=== PATIENT | male | born 1955 | race Caucasian/White ===

== ENCOUNTER 2019-03-15 11:29 | Emergency (ER) | payer OTHER ==
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
[2019-03-15 13:23] LABS: ABS Eosinophils 0.1 10^3/ul (0-0.6); ABS Lymphocytes 1.7 10^3/ul (1.0-4.8); ABS Monocytes 0.6 10^3/ul (0-0.8); ABS Neutrophils 3.4 10^3/ul (1.5-7.7); Eosinophil % 2.1 %; Hematocrit 43 % (42-52); Hemoglobin 14.7 g/dL (14.0-18.0); Lymphocyte % 29.3 %; Mean Corpuscular HGB Conc 34 g/dL (31-36); Mean Corpuscular Hemoglobin 32 pg (27-31); Mean Corpuscular Volume 93 fL (80-94); Mean Platelet Volume 7.7 fL (7.4-10.4); Platelet Count 324 10^3/uL (150-450); Red Blood Count 4.61 10^6 /uL (4.18-5.48); Red Cell Distribution Width 17 % (10-15); White Blood Count 5.9 10^3/uL (3.5-10.8)
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
[2019-03-15 13:39] LABS: Albumin/Globulin Ratio 1.5 (1-3); BUN/Creatinine Ratio 8.3 (8-20); Calcium 9.2 mg/dL (8.6-10.3); EGFR Non-African American 92.6 (>60); Globulin 2.7 g/dL (2-4); Potassium 3.8 mmol/L (3.5-5.0); Total Bilirubin 0.6 mg/dL (0.2-1.0); Total Protein 6.7 g/dL (6.4-8.9)
[2019-03-15 14:16] LABS: Urine Appearance Clear; Urine Bilirubin Negative (Negative); Urine Blood Negative (Negative); Urine Color Yellow; Urine Glucose Negative (Negative); Urine Ketones Negative (Negative); Urine Nitrite Negative (Negative); Urine Protein Negative (Negative); Urine Specific Gravity 1.006 (1.010-1.030); Urine Urobilinogen Negative (Negative)
[2019-03-15] MEDS ORDERED: Nicotine PATCH 21 MG/24 HR* PATCH TRANSDERM ONE (14:51)
[2019-03-15] MEDS ORDERED: Naproxen TAB* 250 MG PO ONE (15:35)
[2019-03-15] MEDS ORDERED: Ciprofloxacin TAB* 500 MG PO ONE (15:35)
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
[2019-03-15 20:46] VITALS: BP 130/84
[2019-03-15] MEDS ORDERED: oxyCODONE TAB* 5 MG TAB PO ONE (20:50)
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
== END 2019-03-15 21:09 | disposition home or self-care (01) ==
LOC: ED 11:29
DX: S12.600A Unspecified displaced fracture of seventh cervical vertebra, initial encounter for closed fracture (principal); N50.819 Testicular pain, unspecified; V49.40XA Driver injured in collision with unspecified motor vehicles in traffic accident, initial encounter; Y92.410 Unspecified street and highway as the place of occurrence of the external cause; I10 Essential (primary) hypertension; F17.210 Nicotine dependence, cigarettes, uncomplicated; Z91.041 Radiographic dye allergy status; Z79.899 Other long term (current) drug therapy; M51.36 Other intervertebral disc degeneration, lumbar region
CPT/HCPCS: 36415; 70450; 72020; 72070; 72125; 72131; 72141; 72148; 76870; 80053; 81003; 85025; 99283; A9270-GY

== ENCOUNTER 2019-03-17 16:20 | Emergency (ER) | payer SELFPAY ==
[2019-03-17 18:19] LABS: ABS Eosinophils 0.2 10^3/ul (0-0.6); ABS Lymphocytes 1.8 10^3/ul (1.0-4.8); ABS Monocytes 0.9 10^3/ul (0-0.8); ABS Neutrophils 4.7 10^3/ul (1.5-7.7); Eosinophil % 2.1 %; Hematocrit 43 % (42-52); Hemoglobin 14.8 g/dL (14.0-18.0); Lymphocyte % 23.4 %; Mean Corpuscular HGB Conc 34 g/dL (31-36); Mean Corpuscular Hemoglobin 32 pg (27-31); Mean Corpuscular Volume 93 fL (80-94); Mean Platelet Volume 7.7 fL (7.4-10.4); Nucleated Red Blood Cells % 0.1; Platelet Count 334 10^3/uL (150-450); Red Blood Count 4.62 10^6 /uL (4.18-5.48); Red Cell Distribution Width 17 % (10-15); White Blood Count 7.5 10^3/uL (3.5-10.8)
[2019-03-17 18:24] LABS: INR 0.97 (0.82-1.09)
--- NOTE | 2019-03-17 18:28 | ED ---
GI/ HPI - HPI Summary HPI Summary: 63 year old male presents with continuation of testicular pain for the past couple weeks. He states he was seen here 2 days ago and had an ultrasound done was diagnosed with orchitis. He states it started course of Cipro. He states that his been having increasing pain today that radiates into his right lower quadrant. He denies any nausea vomiting. No fevers. No dysuria. He states when he is straining had increased pain. She admits to constipation but no diarrhea. Does have history of multiple back surgeries. Does have a C7 fracture that has collar on and is being followed by neurosurgery. Denies any new trauma. States he is feeling better when he is sitting up but hurts more when he lays down. - History of Current Complaint Chief Complaint: EDUrogenitalProblems Time Seen by Provider: 03/17/19 17:55 Stated Complaint: RIGHT TESTICLE PAIN PER PT Pain Intensity: 8 - Allergy/Home Medications Allergies/Adverse Reactions: Allergies Allergy/AdvReac Type Severity Reaction Status Date / Time Iodinated Contrast Media AdvReac Headache Verified 03/17/19 16:29 PMH/Surg Hx/FS Hx/Imm Hx Endocrine/Hematology History: Denies: Hx Diabetes Cardiovascular History: Reports: Hx Hypertension Denies: Hx Pacemaker/ICD History: Denies: Hx Renal Disease Musculoskeletal History: Reports: Hx Arthritis Sensory History: Reports: Hx Contacts or Glasses - GLASSES Denies: Hx Cataracts, Hx Glaucoma, Hx Hearing Aid Opthamlomology History: Reports: Hx Contacts or Glasses - GLASSES Denies: Hx Cataracts, Hx Glaucoma Neurological History: Reports: Other Neuro Impairments/Disorders - L3/4, 4/5 SPINAL STENOSIS Psychiatric History: Denies: Hx Panic Disorder - Surgical History Surgery Procedure, Year, and Place: HERNIA X2. LSP SURGERY 2000&2013-12/21/16. RT WRIST SURGERY X3 Hx Anesthesia Reactions: No Infectious Disease History: No Infectious Disease History: Denies: Traveled Outside the US in Last 30 Days - Family History Known Family History: Positive: Non-Contributory - Social History Alcohol Use: Daily Alcohol Amount: 6-7 BEERS/DAY Substance Use Type: Reports: None Smoking Status (MU): Heavy Every Day Tobacco Smoker Type: Cigarettes Amount Used/How Often: 1 PPD FOR 45 YRS Length of Time of Smoking/Using Tobacco: 45 YRS Have You Smoked in the Last Year: Yes Review of Systems Negative: Fever Negative: Chest Pain Negative: Shortness Of Breath Positive: Abdominal Pain Positive: other - right testicular pain Positive: Myalgia - back pain All Other Systems Reviewed And Are Negative: Yes Physical Exam Triage Information Reviewed: Yes Vital Signs On Initial Exam: Initial Vitals Temp Pulse Resp BP Pulse Ox 97.9 F 76 16 153/88 97 03/17/19 16:25 03/17/19 16:25 03/17/19 16:25 03/17/19 16:25 03/17/19 16:25 Vital Signs Reviewed: Yes Appearance: Positive: Well-Appearing Skin: Positive: Warm, Dry Head/Face: Positive: Normal Head/Face Inspection Eyes: Positive: Normal, Conjunctiva Clear ENT: Positive: Pharynx normal Respiratory/Lung Sounds: Positive: Clear to Auscultation, Breath Sounds Present Cardiovascular: Positive: Normal, RRR Abdomen Description: Positive: Soft, Other: - tenderness in RLQ Bowel Sounds: Positive: Present Male Genital Exam: Positive: Normal Genitalia, Normal Prostate, No Hernia. Negative: Testicular Tenderness (R), Testicular Tenderness (L) Musculoskeletal: Positive: Limited @ - back, Other - tenderness lower back, neg sLR Neurological: Positive: Normal Psychiatric: Positive: Normal Diagnostics - Vital Signs Vital Signs Temp Pulse Resp BP Pulse Ox 03/17/19 16:25 97.9 F 76 16 153/88 97 - Laboratory Lab Results: Lab Results 03/17/19 03/17/19 Range/Units 18:10 18:10 WBC 7.5 (3.5-10.8) 10^3/uL RBC 4.62 (4.18-5.48) 10^6 /uL Hgb 14.8 (14.0-18.0) g/dL Hct 43 (42-52) % MCV 93 (80-94) fL MCH 32 H (27-31) pg MCHC 34 (31-36) g/dL RDW 17 H (10-15) % Plt Count 334 (150-450) 10^3/uL MPV 7.7 (7.4-10.4) fL Neut % (Auto) 62.8 % Lymph % (Auto) 23.4 % [place] % (Auto) 11.5 % Eos % (Auto) 2.1 % Baso % (Auto) 0.2 % Absolute Neuts (auto) 4.7 (1.5-7.7) 10^3/ul Absolute Lymphs (auto) 1.8 (1.0-4.8) 10^3/ul Absolute Monos (auto) 0.9 H (0-0.8) 10^3/ul Absolute Eos (auto) 0.2 (0-0.6) 10^3/ul Absolute Basos (auto) 0.0 (0-0.2) 10^3/ul Absolute Nucleated RBC 0.0 10^3/ul Nucleated RBC % 0.1 INR (Anticoag Therapy) 0.97 (0.82-1.09) Result Diagrams: 03/17/19 18:10 03/17/19 18:10 Lab Statement: Any lab studies that have been ordered have been reviewed, and results considered in the medical decision making process. - CT abd CT Interpretation Completed By: Radiologist Summary of CT Findings: IMPRESSION: 1. Status post posterior fusion from L3-S1 and mild dextroscoliosis. Mild foraminal narrowing at L5-S1. No acute fractures. Streak artifacts limit the study. 2. No acute process seen in the abdomen or pelvis. 3. Bilateral thickening and mild prostatic enlargement. - Ultrasound No standard instances Ultrasound Interpretation Completed By: Radiologist Summary of Ultrasound Findings: IMPRESSION: Testicular ultrasound is within normal limits. Compared to the ultrasound done 2 days ago, both testes now seen to have normal and symmetric flow. No intratesticular abnormalities. Re-Evaluation - Re-Evaluation First Eval Re-Evaluation Time: 19:00 Comment: discussed getting CT with RLQ pain GIGU Course/Dx - Course Course Of Treatment: 63 year old male presents with continuation of testicular pain for the past couple weeks. He states he was seen here 2 days ago and had an ultrasound done was diagnosed with orchitis. He states it started course of Cipro. He states that his been having increasing pain today that radiates into his right lower quadrant. He denies any nausea vomiting. No fevers. No dysuria. He states when he is straining had increased pain. She admits to constipation but no diarrhea. Does have history of multiple back surgeries. Does have a C7 fracture that has collar on and is being followed by neurosurgery. Denies any new trauma. States he is feeling better when he is sitting up but hurts more when he lays down. On exam tenderness over quadrant. Tenderness in RLQ. Nontender testicular. Ultrasound shows no abnormality. wbc normal. crp normal. CT shows no abnormality. discussed symptoms likely coming from back. told follow up with urology about testicular pain. patient has follow up with neurosurgery for tuesday. told continue normal pain meds. patient understand and agrees with plan. - Diagnoses Differential Diagnoses - Male: Appendicitis, Orchitis, Urinary Tract Infection Provider Diagnoses: Testicular pain, Back pain, Abdominal pain Discharge ED - Sign-Out/Discharge Documenting (check all that apply): Patient Departure Patient Received Moderate/Deep Sedation with Procedure: No - Discharge Plan Condition: Good Disposition: HOME Patient Education Materials: Back Pain (ED) Referrals: She Blackmon [Primary Care Provider] - Sterling Arias MD [Medical Doctor] - Additional Instructions: follow up with urology continue antibiotic Follow up with neurosurgery as scheduled ice, heat area Return to ED if develop any new or worsening symptoms - Billing Disposition and Condition Condition: GOOD Disposition: Home
[2019-03-17 18:36] LABS: Albumin 4.2 g/dL (3.2-5.2); Albumin/Globulin Ratio 1.4 (1-3); BUN/Creatinine Ratio 9.8 (8-20); C Reactive Protein 4.94 mg/L (<8.01); Calcium 9.2 mg/dL (8.6-10.3); EGFR African American 89.5 (>60); Globulin 2.9 g/dL (2-4); Total Bilirubin 0.4 mg/dL (0.2-1.0); Total Protein 7.1 g/dL (6.4-8.9)
[2019-03-17 18:52] LABS: Urine Appearance Clear; Urine Bilirubin Negative (Negative); Urine Blood Negative (Negative); Urine Color Straw; Urine Glucose Negative (Negative); Urine Ketones Negative (Negative); Urine Nitrite Negative (Negative); Urine Protein Negative (Negative); Urine Specific Gravity 1.003 (1.010-1.030); Urine Urobilinogen Negative (Negative)
[2019-03-17 19:23] LABS: Potassium 4.2 mmol/L (3.5-5.0)
[2019-03-17 20:43] VITALS: BP 128/76
== END 2019-03-17 20:42 | disposition home or self-care (01) ==
LOC: ED 16:20
DX: N50.819 Testicular pain, unspecified (principal); M54.9 Dorsalgia, unspecified; R10.9 Unspecified abdominal pain; I10 Essential (primary) hypertension; F17.210 Nicotine dependence, cigarettes, uncomplicated; Z91.041 Radiographic dye allergy status; Z79.899 Other long term (current) drug therapy
CPT/HCPCS: 36415; 74176; 76870; 80053; 81003; 85025; 85610; 86140; 99283

== ENCOUNTER 2019-08-27 07:11 | Emergency (ER) | payer OTHER ==
--- OUTSIDE RECORDS SUMMARY | 2019-08-27 07:26 | XMS REPORT | Summary of Care ---
:1955 Author Organization [facility] Address [address] [place] [address] Care Team Providers Name Role Phone She BlackmonMAX Primary Care Provider Reason for Visit Reason Comments Sinus Problem Encounter Details Date Type Department Care Team Description 08/24/2019 Office Visit [facility] Nereida Blackmon (Primary Dx); [address] [place] Obstructive chronic bronchitis with exacerbation (HCC); [place] [id number] [address] Gout, unspecified cause, unspecified chronicity, unspecified site; [phone] Gout, unspecified; [place] [address] Acute bacterial sinusitis [phone] Allergies Active Allergy Reactions Severity Noted Date Comments Dye Intravenous Radiographic Imaging FERMENTER OPERATOR Reaction 12/27/2017 Contrast Prednisone Swelling 08/05/2016 documented as of this encounter (statuses as of 08/24/2019) Medications Medication Sig Dispensed Refills Start End Date Status Date tiotropium (SPIRIVA Take 1 INHL by 90 Cap 1 Active HANDIHALER) 18 MCG inhalation 9 Inhalation DAILY. CapIndications: Obstructive chronic bronchitis with exacerbation (HCC) budesonide-formotero Take 2 INHL by 1 Each 3 Active l fumarate inhalation 9 (SYMBICORT) 160-4.5 TWICE DAILY. MCG/ACT Inhalation AerosolIndications: Chronic obstructive pulmonary disease, unspecified COPD type (HCC) albuterol HFA Take 2 Puffs 18 g 5 Active (VENTOLIN HFA) 108 by inhalation 0 (90 Base) MCG/ACT EVERY FOUR Inhalation Aero Soln HOURS NEEDED (SOB). amLodipine (NORVASC) Take 1 Tab by 30 Tab 5 Active 10 MG Oral mouth DAILY. 0 TabIndications: Obstructive chronic bronchitis with exacerbation (HCC) atenolol (TENORMIN) Take 1 Tab by 30 Tab 5 Active 50 MG Oral mouth DAILY. 0 TabIndications: Obstructive chronic bronchitis with exacerbation (HCC) lisinopril Take 1 Tab by 30 Tab 5 Active (PRINIVIL, ZESTRIL) mouth DAILY. 0 40 MG Oral Tab Omeprazole delayed Take 1 Cap by 30 Cap 5 Active rel cap 20 MG Oral mouth DAILY. 0 CAPSULE DELAYED RELEASEIndications: Obstructive chronic bronchitis with exacerbation (HCC) guaiFENesin-codeine Take 10 mL by 180 mL 0 Active (ROBITUSSIN AC) mouth EVERY 0 100-10 MG/5ML Oral FOUR HOURS SolutionIndications: NEEDED Cough (cough). Max Daily Amount: 60 mL. fluticasone [place] 2 Sprays 1 Bottle 0 Active (FLONASE) 50 MCG/ACT in nose DAILY. 0 Nasal SuspensionIndication s: Cough, Acute bacterial sinusitis indomethacin Take 1 Cap by 60 Cap 0 Active (INDOCIN) 50 MG Oral mouth THREE 0 CapIndications: TIMES DAILY. Gout, unspecified PRN pain cause, unspecified chronicity, unspecified site colchicine Take 1 Tab by 3 Tab 1 Active (COLSALIDE) 0.6 MG mouth DAILY. 0 Oral TabIndications: Take 2 tablets Gout, unspecified now then 1 tablet 1 hour later. budesonide respules 2 mL by 960 mL 0 Active (PULMICORT RESPULES) Inhalation-SVN 0 0.5 MG/2ML route TWICE Inhalation DAILY. SuspensionIndication s: Cough doxycycline Take 1 Tab by 20 Tab 0 09/03/19 Active (VIBRAMYCIN) 100 MG mouth TWICE 0 20 Oral TabIndications: DAILY for 10 Acute bacterial days. sinusitis indomethacin Take 1 Cap by 60 Cap 0 08/24/19 Discontinued (No (INDOCIN) 50 MG Oral mouth THREE 8 20 longer CapIndications: TIMES DAILY. clinically Gout, unspecified PRN pain indicated) cause, unspecified chronicity, unspecified site cyclobenzaprine Take 1 Tab by 30 Tab 0 08/24/19 Discontinued ( No (FLEXERIL) 10 MG mouth THREE 9 20 longer Oral TabIndications: TIMES DAILY clinically Muscle spasm NEEDED (neck indicated) pain). lisinopril Take 1 Tab by 30 Tab 5 08/24/19 Discontinued (PRINIVIL, ZESTRIL) mouth DAILY. 9 20 (Reorder) 40 MG Oral Tab Omeprazole delayed Take 20 mg by 30 Cap 5 08/24/19 Discontinued rel cap 20 MG Oral mouth DAILY. 9 20 (Reorder) CAPSULE DELAYED RELEASEIndications: Obstructive chronic bronchitis with exacerbation (HCC) amLodipine (NORVASC) Take 1 Tab by 30 Tab 5 08/24/19 Discontinued 10 MG Oral mouth DAILY. 9 20 (Reorder) TabIndications: Obstructive chronic bronchitis with exacerbation (HCC) atenolol (TENORMIN) Take 1 Tab by 30 Tab 5 08/24/19 Discontinued 50 MG Oral mouth DAILY. 9 20 (Reorder) TabIndications: Obstructive chronic bronchitis with exacerbation (HCC) albuterol HFA Take 2 Puffs 18 g 5 08/24/19 Discontinued (VENTOLIN HFA) 108 by inhalation 9 20 (Reorder) (90 Base) MCG/ACT EVERY FOUR Inhalation Aero Soln HOURS NEEDED (SOB). budesonide-formotero Take 2 INHL by 1 Each 3 08/24/19 Discontinued l fumarate inhalation 9 20 (Duplicate (SYMBICORT) 160-4.5 TWICE DAILY. Order) MCG/ACT Inhalation Aerosol cephalexin (KEFLEX) Take 1 Cap by 30 Cap 0 08/24/19 Discontinued (No 500 MG Oral Cap mouth THREE 9 20 longer TIMES DAILY. clinically indicated) documented as of this encounter (statuses as of 08/24/2019) Active Problems Problem Noted Date Hyponatremia 11/15/2017 [...] as of this encounter (statuses as of 08/24/2019) Resolved Problems Problem Noted Date Resolved Date Left leg pain 07/05/2016 03/24/2017 Left hip pain 07/05/2016 03/24/2017 Cold sensation of skin 07/05/2016 01/11/2019 Tingling sensation 07/05/2016 01/11/2019 documented as of this encounter (statuses as of 08/24/2019) Immunizations Name Administration Dates Next Due H1N1 Injectable Adult 06/30/2009 Influenza (IM) Preservative Free 04/17/2019, 08/17/2018, 04/02/2013, 07/18/2012, 07/16/2010, 06/30/2009 Influenza (IM) [...] Assigned at Date Recorded Not on file documented as of this encounter Last Filed Vital Signs Vital Sign Reading Time Taken Comments Blood Pressure 136/86 08/24/2019 3:04 PM EST Pulse 84 08/24/2019 3:04 PM EST Temperature 37.2 08/24/2019 3:04 PM EST C (98.9 F) Respiratory Rate 22 08/24/2019 3:04 PM EST Oxygen Saturation 94% 08/24/2019 3:04 PM EST Inhaled Oxygen Concentration - - Weight 81.4 kg (179 lb 8 oz) 08/24/2019 3:04 PM EST Height - - Body Mass Index 26.9 06/25/2019 1:27 PM EST documented in this encounter Patient Instructions Patient InstructionsShe Blackmon FNP-BC - 08/24/2019 3:00 PM ESTUse Pulmicort tin with albuterol MDI in nebulizer until you have follow up appointment -- Follow up in 10-14 days regarding breathing Use frandy\\nase during this time as well documented in this encounter Progress Notes She Blackmon FNP-BC - 08/24/2019 3:00 PM EST Verito Cam[place] [id number] 1955 Date of encounter: 08/24/2019 Chief Complaint Patient presents with ? Sinus Problem HPI: Verito Camarillo presents today in the walk in with symptoms as listed in the chief complaint. Presents today with his and granddaughter after a few weeks of upper respiratory symptoms stating that his head is plugged and his right ear pops all the time. He has sinus pressure in his face with a sore throat. He states his throat is dry but he has a very productive cough for lots of yellowphlegm, no blood seen. He endorses shortness of breath and wheezing and has been using his 's albuterol in the nebulizer in addition to his inhaler with good relief. He is not taking his Symbicort as prescribed. He is also taking Tylenol Sinus and a Robitussin product. He states he has Flonasein the past for sinus but not recently. He also reports a flare of gout 3 to 4 days ago in his left elbow that he is taking Indocin for but has noted no benefit. He is taking Indocin 1 time each day. PAST MEDICAL HISTORY: Past Medical History: Diagnosis Date ? COPD ? GERD (gastroesophageal reflux disease) ? Gout ? History of spinal cord injury ? HTN (hypertension), benign ? Hypertension ? Loss of sensation ? Movement disorder ? Unspecified essential hypertension FAMILY HISTORY: Family History Problem Relation Age of Onset ? Heart Father MA at 67 y/o ? Stroke No family history ? Parkinson's No family history ? Seizures No family history ? Neurofibromatosis No family history ? Multiple Sclerosis No family history ? Muscular Dystrophy No family history ? Mental Retardation No family history ? Developmental Delay No family history ? Dementia No family history ? Ataxia No family history SOCIAL HISTORY: Social History Socioeconomic History ? Marital status: Spouse name: Not on file ? Number of children: Not on file ? Years of education: Not on file ? Highest education level: Not on file Occupational History ? Not on file Social Needs ? Financial resource strain: Not on file ? Food insecurity Worry: Not on file Inability: Not on file ? Transportation needs Medical: Not on file Non-medical: Not on file Tobacco Use ? Smoking status: Former Smoker Packs/day: 1.00 Years: 36.00 Pack years: 36.00 Types: Cigarettes Last attempt to quit: 04/27/2017 Years since quittin.3 ? Smokeless tobacco: Never Used Substance and Sexual Activity ? Alcohol use: Yes Alcohol/week: 42.0 standard drinks Types: 42 Cans of beer per week Comment: 6-8 beers qd, coffee 1 per day, soda 1 per day ? Drug use: No ? Sexual activity: Yes Partners: Female Lifestyle ? Physical activity Days per week: Not on file Minutes per session: Not on file ? Stress: Not on file Relationships ? Social connections Talks on phone: Not on file Gets together: Not on file Attends gnosticist service: Not on file Active member of club or organization: Not on file Attends meetings of clubs or organizations: Not on file Relationship status: Not on file ? Intimate partner violence Fear of current or ex partner: Not on file Emotionally abused: Not on file Physically abused: Not on file Forced sexual activity: Not on file Other Topics Concern ? Back Care Not Asked ? Bike Helmet Not Asked ? Blood Transfusions Not Asked ? Caffeine Concern Not Asked ? Exercise Not Asked ? Hobby Hazards Not Asked ? International Travel Not Asked ? Service Not Asked ? Occupational Exposure Not Asked ? Seat Belt Not Asked ? Self-Exams Not Asked ? Sleep Concern Not Asked ? Special Diet Not Asked ? Stress Concern Not Asked ? 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 MISC PHYSICAL PROCEDURES trimmed disc per pt lumbar ? MISC PHYSICAL PROCEDURES right wrist fusion and graft of something ? [place] FONTAINE W/O FACETEC FORAMOT/DSKC 06/28 VRT SEG, THORACIC 2002 ? FL FONTAINE W/O FACETEC FORAMOT/[facility]KC 2 VRT SEG, THORACIC ? [place] OPEN POST REPAIR EA ADDN VERT FX ? [place] REPAIR SLIDING INGUINAL HERNIA x 2 ? UNLISTED PROCEDURE,MUSCULOSKELE MEDICATIONS: Current Outpatient Medications Medication ? albuterol HFA (VENTOLIN HFA) 108 (90 Base) MCG/ACT Inhalation Aero Soln ? amLodipine (NORVASC) 10 MG Oral Tab ? atenolol (TENORMIN) 50 MG Oral Tab ? budesonide-formoterol fumarate (SYMBICORT) 160-4.5 MCG/ACT Inhalation Aerosol ? budesonide-formoterol fumarate (SYMBICORT) 160-4.5 MCG/ACT Inhalation Aerosol ? cephalexin (KEFLEX) 500 MG Oral Cap ? cyclobenzaprine (FLEXERIL) 10 MG Oral Tab ? indomethacin (INDOCIN) 50 MG Oral Cap ? lisinopril (PRINIVIL, ZESTRIL) 40 MG Oral Tab ? Omeprazole delayed rel cap 20 MG Oral CAPSULE DELAYED RELEASE ? tiotropium (SPIRIVA HANDIHALER) 18 MCG Inhalation Cap ALLERGIES: Allergies Allergen Reactions ? Dye Intravenous Radiographic Imaging Contrast FERMENTER OPERATOR Reaction ? Prednisone Swelling I have reviewed the patients allergies, past medical, surgical and family history with the patient. These were updated on 08/24/2019 17:26. ROS: Pertinent items are noted in the History of Present Illness. PE: BP 136/86 | Pulse 84 | Temp 98.9 F (37.2 C) | Resp 22 | Wt 179 lb 8 oz (81.4 kg) | OtD552% | BMI 26.90 kg/m CONST: Appears well, no distress, cooperative HEENT:Atraumatic, normocephalic, conjunctivae/corneas clear. PERRL, EOM's intact. conjunctiva pale,sclerae noninjected, bilateral TM's and external ear canals normal, nares normal and patent, no erythema, discharge or polyps, mucous membranes moist, pharynx normal without lesions, maxillary and frontal sinuses tender to palpation NECK: supple, full ROM, supple, no significant adenopathy CHEST: regular rate and rhythm, S1, S2 normal, no murmur, click, rub or gallop , clear to auscultation, no wheezes or rales and unlabored breathing NEURO: alert, oriented, normal speech, no focal findings or movement disorder noted ASSESSMENT/PLAN: Verito was seen today for sinus problem. Diagnoses and all orders for this visit: Cough - guaiFENesin-codeine (ROBITUSSIN AC) 100-10 MG/5ML Oral Solution; Take 10 mL by mouth EVERY FOUR HOURS NEEDED (cough). Max Daily Amount: 60 mL. Patient advised not to operate heavy equipment, machinery or vehicle while taking narcotics. - fluticasone (FLONASE) 50 MCG/ACT Nasal Suspension; [place] 2 Sprays in nose DAILY. - budesonide respules (PULMICORT RESPULES) 0.5 MG/2ML Inhalation Suspension ; 2 mL by Inhalation-SVN route TWICE DAILY. Obstructive chronic bronchitis with exacerbation (HCC) - amLodipine (NORVASC) 10 MG Oral Tab; Take 1 Tab by mouth DAILY. - atenolol (TENORMIN) 50 MG Oral Tab; Take 1 Tab by mouth DAILY. - Omeprazole delayed rel cap 20 MG Oral CAPSULE DELAYED RELEASE; Take 1 Cap by mouth DAILY. Gout, unspecified cause, unspecified chronicity, unspecified site - indomethacin (INDOCIN) 50 MG Oral Cap; Take 1 Cap by mouth THREE TIMES DAILY. PRN pain Gout, unspecified - TAKE colchicine (COLSALIDE) 0.6 MG Oral Tab; Take 1 Tab by mouth DAILY. Take 2 tablets now then 1 tablet 1 hour later. Acute bacterial sinusitis - fluticasone (FLONASE) 50 MCG/ACT Nasal Suspension; [place] 2 Sprays in nose DAILY. - doxycycline (VIBRAMYCIN) 100 MG Oral Tab; Take 1 Tab by mouth TWICE DAILY for 10 days. The potential side effects of this medication have been discussed with the patient. Call if any significantproblems with these are experienced. Other orders - albuterol HFA (VENTOLIN HFA) 108 (90 Base) MCG/ACT Inhalation Aero Soln; Take 2 Puffs by inhalation EVERY FOUR HOURS NEEDED (SOB). - lisinopril (PRINIVIL, ZESTRIL) 40 MG Oral Tab; Take 1 Tab by mouth DAILY. Advised to take antibiotics as instructed until gone. Encouraged to increase fluids as tolerated, eat a healthy food selection rich in vitamins and minerals, rest, and stay warm and dry. May use Tylenol or Advil as needed for pain or fever. If symptoms worsen or fail to improve please return for further evaluation. Follow up: Patient Instructions Use Pulmicort tin with albuterol MDI in nebulizer until you have follow up appointment -- Follow up in 10-14 days regarding breathing Use frandy\\nase during this time as well Call or return to clinic prn if these symptoms worsen or fail to improve as anticipated. The patient indicates understanding of these issues and agrees with the plan. Patient Instructions Use Pulmicort tin with albuterol MDI in nebulizer until you have follow up appointment -- Follow up in 10-14 days regarding breathing Use frandy\\nase during this time as well CORIN Hernández 08/24/2019 17:26 documented in this encounter Plan of Treatment Date Type Specialty Care Team Description 09/06/2019 Office Visit Family Practice She Blackmon FNP-BC [address] [place] [address] [phone] Health Maintenance Due Date Last Done Comments LIPID DISORDER SCREENING 08/21/2019 08/21/2018, 05/27/2015, 07/15/2014, Additional history exists LUNG CANCER SCREENING 08/22/2019 08/22/2018, 08/17/2018 DIABETES SCREENING 01/13/2020 01/12/2019, 08/21/2018, 08/21/2018, Additional history exists DEPRESSION SCREENING 06/25/2020 06/25/2019, 05/28/2013 ZOSTER IMMUNIZATION SERIES 08/24/2020 Postponed from (1 of 2) 2006 (Other) DTaP/Tdap/Td Vaccines (2 - 08/24/2023 08/24/2013 Tdap) PNEUMOCOCCAL 0-64 YRS Completed 07/16/2010 INFLUENZA VACCINE Completed 04/17/2019, 08/17/2018, 04/19/2016, Additional history exists HEPATITIS A IMMUNIZATION Aged Out No longer eligible SERIES based on patient's age to complete this topic HPV IMMUNIZATION SERIES Aged Out No longer eligible based on patient's age to complete this topic MENINGOCOCCAL VACCINE IMM Aged Out No longer eligible based on patient's age to complete this topic documented as of this encounter Goals Goal Patient Goal Associated Recent Patient-Stated? Author Type Problems Progress Blood Pressure Blood Pressure Essential 136/86 No Claribel Barth, < 140/90 hypertension (08/24/2019 3:04 PM EST) Note: Hypertension Care Plan Based on the [...] Educational Resources. record my blood pressure results. [employer] is safe and secure way for you [...] Educational Resources: National Heart, Lung, & Blood [place] http://nhlbi.nih.gov/hbp/index.html The DASH Diet Eating Plan http://www.nhlbi.nih.gov/health/health-topics/ topics/dash/ Academy of Nutrition & DIetetics http://eatright.org National Smoking Cessation Site http://smokefree.gov Blood Pressure < Blood Pressure 136/86 (08/24/2019 No She Blackmon, 140/90 3:04 PM EST) CORIN Note: This is an individualized treatment (blood [...] filedocumented in this encounter Visit Diagnoses Diagnosis Obstructive chronic bronchitis with exacerbation (HCC) Obstructive chronic bronchitis with exacerbation Gout, unspecified cause, unspecified chronicity, unspecified site Cough Acute bacterial sinusitis Acute sinusitis, unspecified documented in this encounter Insurance Payer Benefit Plan / Subscriber ID Effective Dates Phone Address Type Group [employer]CIAL [employer] [facility] [id number] 2007-Present C[employer]a Guarantor Name Account Type Relation to Date of Phone Billing Address Patient Verito Camarillo Personal/Famil 1955 [address] [facility] (Home) [facility] [phone] [facility] [employer] (Work) [facility] documented as of this encounter Advance Directives Code Status Date Activated Date Inactivated Comments Full Code 11/15/2017 7:44 PM 11/16/2017 2:15 PM Does patient have decision making capacity? yes Order discussed with: Patient I discussed all options and patient/surrogate requested and agreed to: Full Code"
[2019-08-27] MEDS ORDERED: Albuterol/Ipratropium NEB.SOL* Albuterol 2.5 MG/Ipratropium 0.5 MG 3 ML INH ONE ×2 (07:34→09:37)
[2019-08-27] MEDS ORDERED: methylPREDNISolone SOD 40 MG* 1 ML VIAL IV ONE (07:36)
--- NOTE | 2019-08-27 07:41 | ED ---
Shortness of Breath - HPI Summary HPI Summary: Pt. is a 63 y.o male who presents to the ER for increase shortness of breath x 1 day. Pt notes he saw his PCP last week and was started on pulmicort and doxycycline for sinus infection/bronchitis. Past hx of COPD, HTN, DM, HLD, GERD. Denies fever, chest pain, leg swelling. Sxs are moderate in severity. Activity makes sxs worse. Nothing improves sxs. - History of Current Complaint Chief Complaint: EDShortnessOfBreath Time Seen by Provider: 08/27/19 07:26 - Allergy/Home Medications Allergies/Adverse Reactions: Allergies Allergy/AdvReac Type Severity Reaction Status Date / Time prednisone Allergy Headache Verified 08/27/19 07:40 Iodinated Contrast Media AdvReac Headache Verified 08/27/19 07:40 Home Medications: Home Medications Atenolol TAB* [Tenormin TAB* 25 MG] 50 mg PO DAILY 12/12/13 [History Confirmed 08/27/19] Omeprazole CAP (NF) [Prilosec CAP* 20 MG] 1 cap PO DAILY 12/12/13 [History Confirmed 08/27/19] Acetaminophen [Tylenol Extra Strength] 500 mg PO Q12HR PRN 03/15/19 [History Confirmed 08/27/19] Albuterol HFA INHALER* [Ventolin HFA Inhaler*] 2 puff INH BID 03/15/19 [History Confirmed 08/27/19] Lisinopril TAB* [Prinivil TAB*] 40 mg PO DAILY 03/15/19 [History Confirmed 08/26] amLODIPine TAB* [Norvasc 5 mg TAB*] 10 mg PO DAILY 03/15/19 [History Confirmed 08/27/19] Albuterol/Ipratropium NEB.MIRLANDE* [Duoneb (Albuterol 2.5 MG/Ipratropium 0.5 MG)] 1 neb INH Q6H PRN #30 [email or web address] 08/27/19 [Rx] Colchicine [Mitigare] 0.6 mg PO DAILY 08/27/19 [History Confirmed 08/27/19] Doxycycline Hyclate 100 mg PO DAILY 08/27/19 [History Confirmed 08/27/19] Fluticasone NASAL SPRAY 50MCG* [Flonase NASAL SPRAY 50MCG*] 2 spray BOTH NARES DAILY 08/27/19 [History Confirmed 08/27/19] Indomethacin 50 mg PO DAILY 08/27/19 [History Confirmed 08/27/19] guaiFENesin/CODIENE 100mg/10mg [Robitussin AC 100Mg/10Mg in 5 ml] 10 ml PO Q4H PRN 08/27/19 [History Confirmed 08/27/19] PMH/Surg Hx/FS Hx/Imm Hx Previously Healthy: Yes Endocrine/Hematology History: Denies: Hx Diabetes Cardiovascular History: Reports: Hx Hypertension Denies: Hx Pacemaker/ICD History: Denies: Hx Renal Disease Musculoskeletal History: Reports: Hx Arthritis Sensory History: Reports: Hx Contacts or Glasses - GLASSES Denies: Hx Cataracts, Hx Glaucoma, Hx Hearing Aid Opthamlomology History: Reports: Hx Contacts or Glasses - GLASSES Denies: Hx Cataracts, Hx Glaucoma Neurological History: Reports: Other Neuro Impairments/Disorders - L3/4, 4/5 SPINAL STENOSIS Psychiatric History: Denies: Hx Panic Disorder - Surgical History Surgery Procedure, Year, and Place: HERNIA X2. [facility] SURGERY 2000&2013-12/21/16. [facility] SURGERY X3 Hx Anesthesia Reactions: No Infectious Disease History: No Infectious Disease History: Denies: Traveled Outside the [place] in Last 30 Days - Family History Known Family History: Positive: Non-Contributory - Social History Occupation: Employed Full-time Lives: With Family Alcohol Use: Daily Alcohol Amount: 6-7 BEERS/DAY Substance Use Type: Reports: None Smoking Status (MU): Heavy Every Day Tobacco Smoker Type: Cigarettes Amount Used/How Often: 1 PPD FOR 45 YRS Length of Time of Smoking/Using Tobacco: 45 YRS Have You Smoked in the Last Year: Yes Review of Systems Constitutional: Negative Negative: Fever Cardiovascular: Negative Negative: Palpitations, Chest Pain Positive: Shortness Of Breath, Cough Gastrointestinal: Negative Neurological/Mental Status: Negative All Other Systems Reviewed And Are Negative: Yes Physical Exam Triage Information Reviewed: Yes Vital Signs On Initial Exam: Initial Vitals Temp Pulse Resp BP Pulse Ox 98.6 F 78 24 206/125 96 08/27/19 07:14 08/27/19 07:14 08/27/19 07:14 08/27/19 07:14 08/27/19 07:14 Vital Signs Reviewed: Yes Appearance: Positive: Well-Nourished - Pt. sitting up in bed, appears anxious. Nontoxic. present. Skin: Positive: Warm, Dry Head/Face: Positive: Normal Head/Face Inspection Eyes: Positive: Normal, EOMI Neck: Positive: Supple Respiratory/Lung Sounds: Positive: Other - Diffuse inspiratory/expiratory wheeze. Mild accessory muscle use. Cardiovascular: Positive: Normal, RRR Musculoskeletal: Negative: Edema Left, Edema Right Neurological: Positive: Normal, CN Intact II-III Psychiatric: Positive: Affect/Mood Appropriate Procedures - Sedation Patient Received Moderate/Deep Sedation with Procedure: No Diagnostics - Vital Signs Vital Signs Temp Pulse Resp BP Pulse Ox 08/27/19 07:14 98.6 F 78 24 206/125 96 - Laboratory Result Diagrams: 08/27/19 07:55 08/27/19 07:55 Lab Statement: Any lab studies that have been ordered have been reviewed, and results considered in the medical decision making process. Course/Dx - Course Course Of Treatment: Pt. presenting with increased cough and wheeze. Afebrile. O2 in low 90's on RA. Pt. started on duoneb and given IV solumedrol. Pt. is still a daily smoker. ECG done at 0754 shows a sinus rhythm of 77bpm, normal axis, no ST elevation or depression. Labs show normal WBC, mild anemia, mildly low Na and cl, midly elevated glucose and AST. CXR negative for acute findings per radiology. Pt. feeling much better after two breathing treatments. Wheezing has resolved. Pt. ambulatory to the bathroom and feels well and not SOB. O2 above 90% on RA. Pt. comfortable with dc home. Pt. states he is "allergic" to prednisone and it gives him a very bad h/a. Pt. refusing rx for prednisone. He is currently on doxy and is to continue. Duoneb rx q 4-6. To stop smoking. Will f.u with pcp in 2-3 days and return to er if sxs change or worsen. Pt. understands and agrees with plan. - Diagnoses Differential Diagnosis/HQI/PQRI: Positive: Bronchitis, COPD Exacerbation, Pneumonia Provider Diagnoses: COPD exacerbation Discharge ED - Sign-Out/Discharge Documenting (check all that apply): Patient Departure - Discharge Plan Condition: Improved Disposition: HOME Prescriptions: Albuterol/Ipratropium NEB.MIRLANDE* [Duoneb (Albuterol 2.5 MG/Ipratropium 0.5 MG)] 1 neb INH Q6H PRN #30 neb.[email or web address] PRN Reason: Wheezing Patient Education Materials: COPD (Chronic Obstructive Pulmonary Disease) (ED) Referrals: She Blackmon [Primary Care Provider] - Additional Instructions: Follow up with PCP in 2-3 days for recheck Continue antibiotic as directed Use nebulizer every 4 hours Stop smoking Return to ER for increased shortness of breath, chest pain, or if concerned - Billing Disposition and Condition Condition: IMPROVED Disposition: Home - Attestation Statements Provider Attestation: I was available for consult. This patient was seen by the BARBARA. The patient was not presented to, seen by, or examined by me. -Jeniffer
[2019-08-27 08:04] LABS: ABS Basophils 0.1 10^3/ul (0-0.2); ABS Eosinophils 0.1 10^3/ul (0-0.6); ABS Lymphocytes 1.3 10^3/ul (1.0-4.8); ABS Monocytes 0.6 10^3/ul (0-0.8); ABS Neutrophils 3.3 10^3/ul (1.5-7.7); Eosinophil % 1.5 %; Hematocrit 38 % (42-52); Hemoglobin 12.8 g/dL (14.0-18.0); Mean Corpuscular HGB Conc 34 g/dL (31-36); Mean Corpuscular Hemoglobin 30 pg (27-31); Mean Corpuscular Volume 88 fL (80-94); Mean Platelet Volume 7.5 fL (7.4-10.4); Platelet Count 322 10^3/uL (150-450); Red Blood Count 4.35 10^6 /uL (4.18-5.48); Red Cell Distribution Width 19 % (10-15); White Blood Count 5.3 10^3/uL (3.5-10.8)
[2019-08-27 08:28] LABS: Albumin 4.2 g/dL (3.2-5.2); Albumin/Globulin Ratio 1.4 (1-3); BUN/Creatinine Ratio 9.4 (8-20); C Reactive Protein 2.96 mg/L (<8.01); Calcium 9.2 mg/dL (8.6-10.3); EGFR African American 110.5 (>60); EGFR Non-African American 91.3 (>60); Globulin 2.9 g/dL (2-4); Potassium 4.1 mmol/L (3.5-5.0); Total Bilirubin 0.6 mg/dL (0.2-1.0); Total Protein 7.1 g/dL (6.4-8.9)
[2019-08-27 11:20] VITALS: BP 166/99
== END 2019-08-27 11:19 | disposition home or self-care (01) ==
LOC: ED 07:11
DX: J44.1 Chronic obstructive pulmonary disease with (acute) exacerbation (principal); R06.02 Shortness of breath; F17.210 Nicotine dependence, cigarettes, uncomplicated; E78.5 Hyperlipidemia, unspecified; K21.9 Gastro-esophageal reflux disease without esophagitis; I10 Essential (primary) hypertension; Z79.899 Other long term (current) drug therapy; Z88.8 Allergy status to other drugs, medicaments and biological substances
CPT/HCPCS: 36415; 71046; 80053; 83880; 84484; 85025; 86140; 93005; 96374; 99283; A9270-GY; J2920

== ENCOUNTER 2021-01-22 12:05 | Inpatient (IN) ==
[2021-01-22] MEDS ORDERED: Dexamethasone IV 4 MG/ML VIAL 1 ml VIAL IV SLOW PU ONE (14:01)
[2021-01-22] MEDS ORDERED: Albuterol HFA INHALER 8 gm MDI INH ONE (14:01)
[2021-01-22] MEDS ORDERED: NS 0.9% 1000 ml BAG 1,000 ML IV ONE (14:02)
[2021-01-22 14:14] LABS: ABS Basophils 0.1 10^3/ul (0-0.2); ABS Eosinophils 0.2 10^3/ul (0-0.6); ABS Lymphocytes 1.4 10^3/ul (1.0-4.8); ABS Neutrophils 4.4 10^3/ul (1.5-7.7); Eosinophil % 2.5 %; Hematocrit 32 % (42-52); Hemoglobin 10.2 g/dL (14.0-18.0); Lymphocyte % 20.4 %; Mean Corpuscular HGB Conc 32 g/dL (31-36); Mean Corpuscular Hemoglobin 24 pg (27-31); Mean Corpuscular Volume 75 fL (80-94); Mean Platelet Volume 7.2 fL (7.4-10.4); Nucleated Red Blood Cells % 0.2; Platelet Count 367 10^3/uL (150-450); Red Blood Count 4.22 10^6 /uL (4.18-5.48); Red Cell Distribution Width 19 % (10-15)
[2021-01-22] MEDS ORDERED: Nicotine PATCH 21 MG/24 HR PATCH TRANSDERM ONE (14:16)
[2021-01-22 14:31] LABS: Troponin I 0.01 ng/mL (<0.03)
[2021-01-22 14:47] LABS: ALT 22 U/L (7-52); AST 23 U/L (13-39); Albumin/Globulin Ratio 1.6 (1-3); Alkaline Phosphatase 62 U/L (35-149); Anion Gap 8 mmol/L (2-11); Blood Urea Nitrogen 9 mg/dL (6-24); CO2 Carbon Dioxide 27 mmol/L (22-32); Calcium 8.6 mg/dL (8.6-10.3); Chloride 90 mmol/L (101-111); EGFR African American 111.3 (>60); Globulin 2.5 g/dL (2-4); Glucose 122 mg/dL (70-100); Sodium 125 mmol/L (135-145); Total Protein 6.5 g/dL (6.4-8.9)
[2021-01-22] MEDS ORDERED: cefTRIAXone 1 gm/50 mL NS BAG 1 GM/50 ML BAG IV ONE (14:54)
[2021-01-22] MEDS ORDERED: Azithromycin 500 mg/250 ml NS 500 MG/250 ML BAG IVPB ONE (14:54)
[2021-01-22 15:01] LABS: Urine Appearance Clear; Urine Bilirubin Negative (Negative); Urine Blood Negative (Negative); Urine Color Straw; Urine Glucose Negative (Negative); Urine Ketones Negative (Negative); Urine Nitrite Negative (Negative); Urine Protein Negative (Negative); Urine Specific Gravity 1.002 (1.002-1.030); Urine Urobilinogen Negative (Negative)
[2021-01-22] MEDS ORDERED: Albuterol HFA INHALER 8 gm MDI INH PRN (16:57)
[2021-01-22] MEDS ORDERED: Ondansetron 4 mg VIAL 2 MG/ML 2 ml VIAL IV PRN (16:57)
[2021-01-22] MEDS ORDERED: Furosemide 40 mg/4 ml IV VIAL IV ONE (16:58)
[2021-01-22] MEDS ORDERED: Thiamine 100 MG/ML 2 ml VIAL (200 mg) IM ONE (17:00)
[2021-01-22] MEDS ORDERED: Iohexol 350 (CONTRAST) 500 ML MDV IV ONE (17:27)
[2021-01-22 22:50] LABS: % Iron Saturation 4 % (15-55); Iron < 20 ug/dL (50-212); Total Iron Binding Capacity 504 mcg/dL (250-450); Transferrin 360 mg/dL (203-362); Unsaturated Iron Binding < 489 ug/dL
[2021-01-22 23:15] LABS: Folate 8.65 ng/mL (5.90-24.80)
[2021-01-22 23:16] LABS: Vitamin B12 213 pg/mL (180-914)
[2021-01-23 06:13] LABS: ABS Lymphocytes 0.7 10^3/ul (1.0-4.8); ABS Monocytes 0.6 10^3/ul (0-0.8); ABS Neutrophils 4.8 10^3/ul (1.5-7.7); Hematocrit 32 % (42-52); Hemoglobin 10.3 g/dL (14.0-18.0); Lymphocyte % 11.2 %; Mean Corpuscular HGB Conc 32 g/dL (31-36); Mean Corpuscular Hemoglobin 24 pg (27-31); Mean Corpuscular Volume 76 fL (80-94); Mean Platelet Volume 7.4 fL (7.4-10.4); Nucleated Red Blood Cells % 0.2; Platelet Count 372 10^3/uL (150-450); Red Blood Count 4.22 10^6 /uL (4.18-5.48); Red Cell Distribution Width 19 % (10-15); White Blood Count 6.1 10^3/uL (3.5-10.8)
[2021-01-23 06:36] LABS: Calcium 9.2 mg/dL (8.6-10.3); EGFR African American 112.9 (>60); EGFR Non-African American 93.3 (>60)
[2021-01-23] MEDS ORDERED: Nicotine PATCH 21 MG/24 HR PATCH TRANSDERM SCH (08:00)
[2021-01-23] MEDS ORDERED: Fluticasone NASAL SPRAY 50MCG 16 gm SPRAY BTL BOTH NARES SCH (09:00)
[2021-01-23] MEDS ORDERED: Multivitamins/Minerals TAB PO SCH (09:00)
[2021-01-23] MEDS ORDERED: Perflutren Lipid Microsphere 3 ML VIAL ONE (14:58)
[2021-01-23] MEDS ORDERED: cefTRIAXone 1 gm/50 mL NS BAG 1 GM/50 ML BAG IVPB SCH (15:00)
[2021-01-23] MEDS ORDERED: Azithromycin 500 mg/250 ml NS 500 MG/250 ML BAG IVPB SCH (16:00)
[2021-01-23 20:36] VITALS: BP 135/68
== END 2021-01-23 22:30 | disposition home or self-care (01) | DRG 193 ==
LOC: ED 12:05 → MED 18:09
PROVIDERS: ADMIT Hospitalist; ATTEND Student in an Organized Health Care Education/Training Program

== ENCOUNTER 2021-06-29 09:51 | Inpatient (IN) ==
[2021-06-29] MEDS ORDERED: Dexamethasone IV 4 MG/ML 5 ML VIAL (20 MG) IVPB ONE (10:56)
[2021-06-29] MEDS ORDERED: Lactated Ringers 1000 ml BAG 1,000 ML IV ONE (10:56)
[2021-06-29] MEDS ORDERED: Albuterol HFA INHALER 8 gm MDI INH PRN ×2 (10:56→15:39)
[2021-06-29] MEDS ORDERED: Magnesium Sulfate 2 gm BAG 2 GM/50 ML BAG IVPB ONE (10:58)
[2021-06-29 11:11] LABS: PCO2 Arterial 44 mmHg (35-45)
[2021-06-29 11:13] LABS: PO2 Arterial 58 mmHg (80-100)
[2021-06-29 11:15] LABS: ABS Basophils 0.1 10^3/ul (0-0.2); ABS Lymphocytes 0.8 10^3/ul (1.0-4.8); ABS Monocytes 0.9 10^3/ul (0-0.8); ABS Neutrophils 4.8 10^3/ul (1.5-7.7); Hematocrit 35 % (42-52); Hemoglobin 11.2 g/dL (14.0-18.0); Lymphocyte % 12.7 %; Mean Corpuscular HGB Conc 32 g/dL (31-36); Mean Corpuscular Hemoglobin 24 pg (27-31); Mean Corpuscular Volume 75 fL (80-94); Mean Platelet Volume 7.1 fL (7.4-10.4); Nucleated Red Blood Cells % 0.1; Platelet Count 281 10^3/uL (150-450); Red Blood Count 4.63 10^6 /uL (4.18-5.48); Red Cell Distribution Width 20 % (10-15); White Blood Count 6.6 10^3/uL (3.5-10.8)
[2021-06-29 11:27] LABS: Activated Partial Thrombo Time 30.4 seconds (26.0-38.0); INR 1.07 (0.86-1.15)
[2021-06-29 11:33] LABS: Troponin I 0.04 ng/mL (<0.03)
[2021-06-29 11:58] LABS: Anion Gap 9 mmol/L (2-11); Blood Urea Nitrogen 23 mg/dL (6-24); CO2 Carbon Dioxide 26 mmol/L (22-32); Calcium 8.5 mg/dL (8.6-10.3); Chloride 85 mmol/L (101-111); Glucose 116 mg/dL (70-100); Lipase 32 U/L (11.0-82.0); Magnesium 1.8 mg/dL (1.9-2.7); Potassium 4.4 mmol/L (3.5-5.0); Sodium 120 mmol/L (135-145); eGFR CKD-EPI 52.9 (>60)
[2021-06-29] MEDS ORDERED: Dexamethasone IV 10 MG in NS 0.9% 50 ML IVPB ONE (12:00)
[2021-06-29 12:09] LABS: Ferritin 24.2 ng/mL (24-336)
[2021-06-29 12:11] LABS: LDH 223 U/L (140-271)
[2021-06-29] MEDS ORDERED: Lidocaine PATCH 5% PATCH TRANSDERM ONE (13:05)
[2021-06-29] MEDS ORDERED: fentaNYL 100 mcg/2 ml 50 MCG/ML VIAL IV SLOW PU ONE (13:05)
[2021-06-29] MEDS ORDERED: HYDROcodone/ACETAMIN 5/325 mg TAB PO PRN (15:13)
[2021-06-29] MEDS ORDERED: Ondansetron 4 mg VIAL 2 MG/ML 2 ml VIAL IV PRN (15:32)
[2021-06-29] MEDS ORDERED: Al Hydrox/Mg Hydrox/Simet LIQ 30 ML UDC PO PRN (15:32)
[2021-06-29] MEDS ORDERED: Remdesivir 100 mg Vial 200 MG in NS 0.9% 250 ml 210 ML IV ONE (16:30)
[2021-06-29] MEDS: Heparin 5000 UNITS/ML 1 mL VIAL SUBCUT SCH ×2 (18:44→20:39)
[2021-06-29] MEDS: Multivitamins/Minerals TAB PO SCH (18:45)
[2021-06-29 19:56] LABS: Troponin I 0.03 ng/mL (<0.03)
[2021-06-29] MEDS ORDERED: Lidocaine Patch REMOVE NOTE PATCH OFF SCH (21:00)
[2021-06-29] MEDS ORDERED: Heparin 5000 UNITS/ML 1 mL VIAL SUBCUT SCH (21:00)
[2021-06-29 21:10] LABS: Anion Gap 12 mmol/L (2-11); CO2 Carbon Dioxide 23 mmol/L (22-32); Calcium 8.4 mg/dL (8.6-10.3); Chloride 86 mmol/L (101-111); Potassium 4.6 mmol/L (3.5-5.0); Sodium 121 mmol/L (135-145)
[2021-06-29 21:15] LABS: Blood Urea Nitrogen 24 mg/dL (6-24); Glucose 169 mg/dL (70-100); eGFR CKD-EPI 61.9 (>60)
[2021-06-29] MEDS: NS 0.9% 1000 ml BAG 1,000 ML IV SCH (22:35)
[2021-06-30] MEDS: Heparin 5000 UNITS/ML 1 mL VIAL SUBCUT SCH (05:24)
[2021-06-30 07:13] LABS: ABS Lymphocytes 0.4 10^3/ul (1.0-4.8); ABS Monocytes 0.4 10^3/ul (0-0.8); ABS Neutrophils 3.4 10^3/ul (1.5-7.7); Hematocrit 33 % (42-52); Hemoglobin 10.8 g/dL (14.0-18.0); Lymphocyte % 9.9 %; Mean Corpuscular HGB Conc 32 g/dL (31-36); Mean Corpuscular Hemoglobin 25 pg (27-31); Mean Corpuscular Volume 77 fL (80-94); Mean Platelet Volume 7.4 fL (7.4-10.4); Nucleated Red Blood Cells % 0.1; Platelet Count 255 10^3/uL (150-450); Red Blood Count 4.36 10^6 /uL (4.18-5.48); Red Cell Distribution Width 20 % (10-15); White Blood Count 4.3 10^3/uL (3.5-10.8)
[2021-06-30 07:20] LABS: INR 1.06 (0.86-1.15)
[2021-06-30 07:31] LABS: Albumin/Globulin Ratio 1.6 (1-3); Calcium 8.2 mg/dL (8.6-10.3); Globulin 2.5 g/dL (2-4); Potassium 4.3 mmol/L (3.5-5.0); Total Bilirubin 0.4 mg/dL (0.2-1.0); Total Protein 6.5 g/dL (6.4-8.9); eGFR CKD-EPI 79.3 (>60)
[2021-06-30] MEDS ORDERED: Fluticasone NASAL SPRAY 50MCG 16 gm SPRAY BTL BOTH NARES SCH (09:00)
[2021-06-30] MEDS ORDERED: Tiotropium Brom/Olodaterol MDI INH SCH (09:00)
[2021-06-30] MEDS: NS 0.9% 1000 ml BAG 1,000 ML IV SCH (10:08)
[2021-06-30] MEDS: Multivitamins/Minerals TAB PO SCH (10:13)
[2021-06-30 10:15] VITALS: BP 135/70
[2021-06-30] MEDS ORDERED: Enoxaparin 40 MG/0.4 ML SYR SUBCUT SCH (14:00)
[2021-06-30] MEDS ORDERED: Remdesivir 100 mg Vial 100 MG in NS 0.9% 250 ml 230 ML IV SCH (21:00)
== END 2021-06-30 13:45 | disposition left against medical advice (07) | DRG 177 ==
LOC: ED 09:51 → EDHOLD 15:44 → MED 18:10
PROVIDERS: ADMIT Hospitalist; ATTEND Hospitalist

== ENCOUNTER 2021-10-01 02:22 | Inpatient (IN) ==
[2021-10-01] MEDS ORDERED: Albuterol HFA INHALER 8 gm MDI INH ONE (02:41)
[2021-10-01] MEDS ORDERED: methylPREDNISolone SOD SUCC 125 mg 2 ML VIAL IV ONE (02:41)
[2021-10-01 02:56] LABS: ABS Lymphocytes 0.8 10^3/ul (1.0-4.8); ABS Monocytes 0.7 10^3/ul (0-0.8); ABS Neutrophils 2.9 10^3/ul (1.5-7.7); Eosinophil % 0.8 %; Hematocrit 32 % (42-52); Hemoglobin 10.3 g/dL (14.0-18.0); Lymphocyte % 17.8 %; Mean Corpuscular HGB Conc 32 g/dL (31-36); Mean Corpuscular Hemoglobin 24 pg (27-31); Mean Corpuscular Volume 74 fL (80-94); Mean Platelet Volume 6.7 fL (7.4-10.4); Nucleated Red Blood Cells % 0.1; Platelet Count 252 10^3/uL (150-450); Red Blood Count 4.29 10^6 /uL (4.18-5.48); Red Cell Distribution Width 21 % (10-15); White Blood Count 4.4 10^3/uL (3.5-10.8)
[2021-10-01 03:01] LABS: Activated Partial Thrombo Time 31.6 seconds (26.0-38.0); INR 1.11 (0.86-1.15)
[2021-10-01] MEDS ORDERED: Lactated Ringers 1000 ml BAG 1,000 ML IV ONE (03:15)
[2021-10-01 03:34] LABS: Albumin 4.3 g/dL (3.2-5.2); C Reactive Protein 17.21 mg/L (<8.01); Calcium 8.9 mg/dL (8.6-10.3); Globulin 2.2 g/dL (2-4); Magnesium 1.5 mg/dL (1.9-2.7); Potassium 4.4 mmol/L (3.5-5.0); Total Bilirubin 0.6 mg/dL (0.2-1.0); Total Protein 6.5 g/dL (6.4-8.9); eGFR CKD-EPI 95.4 (>60)
[2021-10-01 03:40] LABS: PCO2 Arterial 37 mmHg (35-45); PO2 Arterial 95 mmHg (80-100)
[2021-10-01] MEDS ORDERED: Albuterol 2.5mg/3 ml (0.083%) NEB.SOLN INH PRN (04:09)
[2021-10-01] MEDS ORDERED: Magnesium Sulfate 2 gm BAG 2 GM/50 ML BAG IVPB ONE (04:18)
[2021-10-01] MEDS ORDERED: NS 0.9% 500 ml BAG 500 ML IV ONE (04:22)
[2021-10-01 04:30] LABS: High Sensitivity Troponin 1 Hr 12 pg/mL (<20)
[2021-10-01 04:32] LABS: Urine Appearance Clear; Urine Bilirubin Negative (Negative); Urine Blood 1+ (Negative); Urine Color Straw; Urine Glucose Negative (Negative); Urine Ketones Trace (Negative); Urine Nitrite Negative (Negative); Urine Protein Negative (Negative); Urine Specific Gravity 1.005 (1.002-1.030); Urine Urobilinogen Negative (Negative)
[2021-10-01] MEDS: Azithromycin 500 mg/250 ml NS 500 MG/250 ML BAG IVPB SCH (04:33)
[2021-10-01] MEDS: Albuterol/Ipratropium NEB.SOL (2.5/0.5 MG) 3 ML NEB.SOLN INH SCH ×2 (04:35→09:16)
[2021-10-01 04:37] LABS: Osmolality Serum 252 mOsm/kg (275-295)
[2021-10-01] MEDS ORDERED: Ondansetron 4 mg VIAL 2 MG/ML 2 ml VIAL IV ONE (04:39)
[2021-10-01] MEDS ORDERED: Ondansetron 4 mg VIAL 2 MG/ML 2 ml VIAL ONE (04:39)
[2021-10-01 04:54] LABS: Calcium 8.8 mg/dL (8.6-10.3); Potassium 4.7 mmol/L (3.5-5.0); eGFR CKD-EPI 97.7 (>60)
[2021-10-01 05:03] LABS: TSH Ultra Thyroid Stim Horm 2.45 mcIU/mL (0.34-5.60)
[2021-10-01 05:19] LABS: Urine Bacteria Absent (Absent); Urine Red Blood Cell Absent (Absent); Urine Squamous Epithelial Cell Present (Absent); Urine White Blood Cell Absent (Absent)
[2021-10-01] MEDS: Heparin 5000 UNITS/ML 1 mL VIAL SUBCUT SCH ×3 (06:26→21:03)
[2021-10-01] MEDS ORDERED: Mometasone/Formoter 200/5 MDI INH SCH (07:00)
[2021-10-01] MEDS: cefTRIAXone 1 gm/50 mL D5W 1 GM/50 ML BAG IV SCH (07:15)
[2021-10-01 08:36] LABS: ABS Lymphocytes 0.2 10^3/ul (1.0-4.8); ABS Monocytes 0.1 10^3/ul (0-0.8); ABS Neutrophils 3.1 10^3/ul (1.5-7.7); Hematocrit 33 % (42-52); Hemoglobin 10.3 g/dL (14.0-18.0); Lymphocyte % 4.9 %; Mean Corpuscular HGB Conc 31 g/dL (31-36); Mean Corpuscular Hemoglobin 24 pg (27-31); Mean Corpuscular Volume 75 fL (80-94); Mean Platelet Volume 7.1 fL (7.4-10.4); Nucleated Red Blood Cells % 0.3; Platelet Count 252 10^3/uL (150-450); Red Blood Count 4.38 10^6 /uL (4.18-5.48); Red Cell Distribution Width 21 % (10-15); White Blood Count 3.4 10^3/uL (3.5-10.8)
[2021-10-01 08:36] LABS: Phosphorus 4.1 mg/dL (2.5-5.0)
[2021-10-01] MEDS ORDERED: Lorazepam PYXIS KEY PRN ×2 (08:36→10:41)
[2021-10-01] MEDS ORDERED: LORazepam 2 mg VIAL 1 ml IV PUSH ONE (08:36)
[2021-10-01] MEDS ORDERED: Lorazepam PYXIS KEY ONE (08:37)
[2021-10-01] MEDS ORDERED: LORazepam 2 mg VIAL 1 ml ONE (08:38)
[2021-10-01] MEDS ORDERED: Rocuronium 50 mg VIAL 10 mg/ml 5 ml VIAL (50 mg) ONE (08:52)
[2021-10-01] MEDS ORDERED: Succinylcholine 200 mg VIAL 20 mg/ml 10 ml VIAL (200 mg) ONE (08:52)
[2021-10-01] MEDS ORDERED: Propofol 10 MG/ML 20 ML BTL ONE (08:59)
[2021-10-01] MEDS ORDERED: Thiamine 100 MG/ML 2 ml VIAL 500 MG in NS 0.9% 250 ml 250 ML IV ONE (09:00)
[2021-10-01] MEDS ORDERED: Multivitamins/Minerals TAB PO SCH (09:00)
[2021-10-01] MEDS ORDERED: methylPREDNISolone SOD SUCC 40 mg/ml 1 ml VIAL IV SCH (09:00)
[2021-10-01 09:04] LABS: Calcium 8.7 mg/dL (8.6-10.3); eGFR CKD-EPI 97.7 (>60)
[2021-10-01] MEDS ORDERED: Etomidate 40 mg/20 ml (2 MG/ML) 20 ml VIAL (40 mg) ONE (09:04)
[2021-10-01] MEDS ORDERED: Propofol 10 mg/ml 100 ML BTL 100 ML ONE (09:08)
[2021-10-01] MEDS ORDERED: Senna TAB 8.6 mg TAB PO PRN (09:40)
[2021-10-01 09:58] LABS: Ferritin 12.3 ng/mL (24-336)
[2021-10-01] MEDS ORDERED: Thiamine 100 MG/ML 2 ml VIAL 250 MG in NS 0.9% 100 ml BAG 100 ML IV SCH (10:00)
[2021-10-01 10:15] LABS: PO2 Arterial 128 mmHg (80-100)
[2021-10-01 10:22] LABS: PCO2 Arterial 72 mmHg (35-45)
[2021-10-01 11:11] LABS: Urine Osmo 185 mOsm/kg (150-1150)
[2021-10-01] MEDS: Chlorhexidine MOUTHWASH 0.12% 15 ML UDC TOPICAL SCH ×4 (11:13→21:03)
[2021-10-01] MEDS: Multivitamins ADULT w/MIN LIQ 15 ML UDC NG TUBE SCH (11:13)
[2021-10-01 11:57] LABS: Potassium 5.2 mmol/L (3.5-5.0)
[2021-10-01 12:02] LABS: PCO2 Arterial 50 mmHg (35-45); PO2 Arterial 99 mmHg (80-100)
[2021-10-01] MEDS ORDERED: NS 0.9% 1000 ml BAG 1,000 ML IV ONE (12:03)
[2021-10-01] MEDS: Lansoprazole SUSP ORALSYR 3 MG/ML FEED TUBE SCH (12:05)
[2021-10-01] MEDS: Albuterol/Ipratropium NEB.SOL (2.5/0.5 MG) 3 ML NEB.SOLN INH PRN (12:42)
[2021-10-01] MEDS: Propofol 10 mg/ml 100 ML BTL 100 ML IV SCH ×3 (13:15→18:36)
[2021-10-01 13:17] LABS: Calcium 8.1 mg/dL (8.6-10.3); eGFR CKD-EPI 100.4 (>60)
[2021-10-01 13:21] LABS: Potassium 5.5 mmol/L (3.5-5.0)
[2021-10-01] MEDS ORDERED: SODIUM ZIRCONIUM CYCLOSILICATE 10 GM PACKET PO ONE (13:36)
[2021-10-02] MEDS: Chlorhexidine MOUTHWASH 0.12% 15 ML UDC TOPICAL SCH ×6 (01:58→20:59)
[2021-10-02] MEDS: Propofol 10 mg/ml 100 ML BTL 100 ML IV SCH ×4 (03:50→21:00)
[2021-10-02] MEDS: Heparin 5000 UNITS/ML 1 mL VIAL SUBCUT SCH ×3 (04:51→20:59)
[2021-10-02 05:01] LABS: Hematocrit 33 % (42-52); Hemoglobin 9.9 g/dL (14.0-18.0); Mean Corpuscular HGB Conc 30 g/dL (31-36); Mean Corpuscular Hemoglobin 23 pg (27-31); Mean Corpuscular Volume 77 fL (80-94); Red Blood Count 4.23 10^6 /uL (4.18-5.48); Red Cell Distribution Width 20 % (10-15); White Blood Count 6.8 10^3/uL (3.5-10.8)
[2021-10-02 05:33] LABS: Calcium 8.6 mg/dL (8.6-10.3); eGFR CKD-EPI 88.3 (>60)
[2021-10-02 05:42] LABS: Potassium 5.1 mmol/L (3.5-5.0)
[2021-10-02 05:51] LABS: Hypochromasia 2+
[2021-10-02 05:52] LABS: Stomatocytes 2+
[2021-10-02 05:55] LABS: ABS Lymphocytes 0.8 10^3/ul (1.0-4.8); ABS Monocytes 0.8 10^3/ul (0-0.8); ABS Neutrophils 5.2 10^3/ul (1.5-7.7); Eosinophil % 0.1 %; Lymphocyte % 11.1 %; Microcytosis 1+; Nucleated Red Blood Cells % 0.3; Platelet Count Platelets clumped. 10^3/uL (150-450)
[2021-10-02] MEDS: Albuterol/Ipratropium NEB.SOL (2.5/0.5 MG) 3 ML NEB.SOLN INH PRN (07:13)
[2021-10-02] MEDS: Multivitamins ADULT w/MIN LIQ 15 ML UDC NG TUBE SCH (08:02)
[2021-10-02] MEDS: Lansoprazole SUSP ORALSYR 3 MG/ML FEED TUBE SCH (08:03)
[2021-10-02] MEDS: Thiamine 100 MG/ML 2 ml VIAL 250 MG in NS 0.9% 100 ml BAG 100 ML IV SCH (08:11)
[2021-10-02 08:15] LABS: Magnesium 2.4 mg/dL (1.9-2.7); Phosphorus 5.8 mg/dL (2.5-5.0)
[2021-10-02] MEDS ORDERED: Pantoprazole VIAL 40 MG VIAL IV SCH (09:00)
[2021-10-02] MEDS ORDERED: methylPREDNISolone SOD SUCC 40 mg/ml 1 ml VIAL IV SCH (09:00)
[2021-10-02] MEDS ORDERED: D5W 250 ml BAG 250 ML IV ONE (09:34)
[2021-10-02 09:40] LABS: Blood Urea Nitrogen 11 mg/dL (6-24); CO2 Carbon Dioxide 29 mmol/L (22-32); Chloride 92 mmol/L (101-111); Glucose 139 mg/dL (70-100); Sodium 124 mmol/L (135-145); eGFR CKD-EPI 96.4 (>60)
[2021-10-02 09:45] LABS: Anion Gap 3 mmol/L (2-11)
[2021-10-02] MEDS: cefTRIAXone 1 gm/50 mL D5W 1 GM/50 ML BAG IV SCH (10:12)
[2021-10-02] MEDS ORDERED: Acetaminophen IV 1 GM/100ML 100 ML IV ONE (10:42)
[2021-10-02] MEDS: Acetaminophen IV 1 GM/100ML 100 ML IV PRN (10:44)
[2021-10-02] MEDS: Azithromycin 500 mg/250 ml NS 500 MG/250 ML BAG IVPB SCH (10:54)
[2021-10-02 12:39] LABS: Calcium 8.1 mg/dL (8.6-10.3); eGFR CKD-EPI 91.7 (>60)
[2021-10-02 12:49] LABS: Potassium 5.4 mmol/L (3.5-5.0)
[2021-10-02] MEDS ORDERED: SODIUM ZIRCONIUM CYCLOSILICATE 10 GM PACKET PO ONE (14:00)
[2021-10-02] MEDS: Albuterol/Ipratropium NEB.SOL (2.5/0.5 MG) 3 ML NEB.SOLN INH SCH ×4 (14:19→23:28)
[2021-10-02 14:26] LABS: Myoglobin 313.8 ng/mL (17.4-105.7)
[2021-10-02 17:09] LABS: Calcium 8.2 mg/dL (8.6-10.3); eGFR CKD-EPI 88.3 (>60)
[2021-10-02 17:23] LABS: Potassium 5.3 mmol/L (3.5-5.0)
[2021-10-02] MEDS ORDERED: Albuterol/Ipratropium NEB.SOL (2.5/0.5 MG) 3 ML NEB.SOLN INH PRN (19:20)
[2021-10-02] MEDS ORDERED: methylPREDNISolone SOD SUCC 125 mg 2 ML VIAL IV ONE (19:20)
[2021-10-02] MEDS: methylPREDNISolone SOD SUCC 40 mg/ml 1 ml VIAL IV SCH (20:59)
[2021-10-03] MEDS: Propofol 10 mg/ml 100 ML BTL 100 ML IV SCH ×7 (02:05→23:15)
[2021-10-03] MEDS: Chlorhexidine MOUTHWASH 0.12% 15 ML UDC TOPICAL SCH ×6 (02:05→20:30)
[2021-10-03] MEDS: Albuterol/Ipratropium NEB.SOL (2.5/0.5 MG) 3 ML NEB.SOLN INH SCH ×5 (02:43→19:12)
[2021-10-03] MEDS: Heparin 5000 UNITS/ML 1 mL VIAL SUBCUT SCH ×3 (05:40→20:30)
[2021-10-03 06:50] LABS: ABS Lymphocytes 0.3 10^3/ul (1.0-4.8); ABS Monocytes 0.3 10^3/ul (0-0.8); ABS Neutrophils 5.8 10^3/ul (1.5-7.7); Hematocrit 33 % (42-52); Hemoglobin 10.3 g/dL (14.0-18.0); Lymphocyte % 4.8 %; Mean Corpuscular HGB Conc 31 g/dL (31-36); Mean Corpuscular Hemoglobin 24 pg (27-31); Mean Corpuscular Volume 78 fL (80-94); Mean Platelet Volume 7.1 fL (7.4-10.4); Nucleated Red Blood Cells % 0.2; Platelet Count 254 10^3/uL (150-450); Red Blood Count 4.24 10^6 /uL (4.18-5.48); Red Cell Distribution Width 21 % (10-15); White Blood Count 6.5 10^3/uL (3.5-10.8)
[2021-10-03 07:26] LABS: Calcium 8.7 mg/dL (8.6-10.3); Phosphorus 4.3 mg/dL (2.5-5.0); Potassium 4.9 mmol/L (3.5-5.0); eGFR CKD-EPI 97.7 (>60)
[2021-10-03] MEDS: Azithromycin 500 mg/250 ml NS 500 MG/250 ML BAG IVPB SCH (07:49)
[2021-10-03] MEDS: Lansoprazole SUSP ORALSYR 3 MG/ML FEED TUBE SCH (07:49)
[2021-10-03] MEDS: Multivitamins ADULT w/MIN LIQ 15 ML UDC NG TUBE SCH (07:49)
[2021-10-03] MEDS: methylPREDNISolone SOD SUCC 40 mg/ml 1 ml VIAL IV SCH ×3 (07:50→20:29)
[2021-10-03] MEDS: cefTRIAXone 1 gm/50 mL D5W 1 GM/50 ML BAG IV SCH (09:00)
[2021-10-03] MEDS: Thiamine 100 MG/ML 2 ml VIAL 250 MG in NS 0.9% 100 ml BAG 100 ML IV SCH (09:39)
[2021-10-03] MEDS: Cisatracurium 100 MG in NS 0.9% 250 ml 200 ML IV SCH (18:09)
[2021-10-03] MEDS: Docusate LIQ 100 MG/10 ML UDC PO PRN (20:30)
[2021-10-03] MEDS: LORazepam 2 mg VIAL 1 ml IV PUSH PRN (23:23)
[2021-10-04] MEDS: Albuterol/Ipratropium NEB.SOL (2.5/0.5 MG) 3 ML NEB.SOLN INH SCH ×7 (02:39→22:47)
[2021-10-04 02:53] LABS: ABS Basophils 0.1 10^3/ul (0-0.2); ABS Lymphocytes 0.2 10^3/ul (1.0-4.8); ABS Monocytes 0.4 10^3/ul (0-0.8); ABS Neutrophils 6.1 10^3/ul (1.5-7.7); Hematocrit 35 % (42-52); Hemoglobin 10.5 g/dL (14.0-18.0); Lymphocyte % 3.1 %; Mean Corpuscular HGB Conc 30 g/dL (31-36); Mean Corpuscular Hemoglobin 23 pg (27-31); Mean Corpuscular Volume 78 fL (80-94); Mean Platelet Volume 6.8 fL (7.4-10.4); Nucleated Red Blood Cells % 0.4; Platelet Count 258 10^3/uL (150-450); Red Blood Count 4.48 10^6 /uL (4.18-5.48); Red Cell Distribution Width 21 % (10-15); Venous Bicarbonate HCO3 34.3 mmol/L (24-28); White Blood Count 6.8 10^3/uL (3.5-10.8)
[2021-10-04] MEDS: Chlorhexidine MOUTHWASH 0.12% 15 ML UDC TOPICAL SCH ×6 (03:00→22:36)
[2021-10-04 03:21] LABS: eGFR CKD-EPI 101.2 (>60)
[2021-10-04 03:27] LABS: Potassium 5.1 mmol/L (3.5-5.0)
[2021-10-04] MEDS: Propofol 10 mg/ml 100 ML BTL 100 ML IV SCH ×7 (03:32→23:13)
[2021-10-04] MEDS: LORazepam 2 mg VIAL 1 ml IV PUSH PRN ×2 (03:50→16:33)
[2021-10-04 05:57] LABS: Venous Bicarbonate HCO3 35.4 mmol/L (24-28)
[2021-10-04] MEDS: methylPREDNISolone SOD SUCC 40 mg/ml 1 ml VIAL IV SCH ×3 (06:47→19:53)
[2021-10-04] MEDS: Heparin 5000 UNITS/ML 1 mL VIAL SUBCUT SCH ×3 (06:47→22:36)
[2021-10-04] MEDS: cefTRIAXone 1 gm/50 mL D5W 1 GM/50 ML BAG IV SCH (07:34)
[2021-10-04] MEDS: Multivitamins ADULT w/MIN LIQ 15 ML UDC NG TUBE SCH (07:34)
[2021-10-04] MEDS: Lansoprazole SUSP ORALSYR 3 MG/ML FEED TUBE SCH (07:34)
[2021-10-04] MEDS: Thiamine 100 MG/ML 2 ml VIAL 250 MG in NS 0.9% 100 ml BAG 100 ML IV SCH (09:49)
[2021-10-04] MEDS: Cisatracurium 100 MG in NS 0.9% 250 ml 200 ML IV SCH (10:26)
[2021-10-04 12:23] LABS: Calcium 8.7 mg/dL (8.6-10.3); eGFR CKD-EPI 101.6 (>60)
[2021-10-04 12:40] LABS: Potassium 5.2 mmol/L (3.5-5.0)
[2021-10-04] MEDS ORDERED: SODIUM ZIRCONIUM CYCLOSILICATE 10 GM PACKET PO ONE (12:45)
[2021-10-04] MEDS ORDERED: Acetylcysteine INH SOL (RT) 200 MG/ML 4 ML VIAL INH ONE (14:17)
[2021-10-04] MEDS ORDERED: Acetylcysteine INHALATION SOL 200 MG/ML NEB.SOLN 10 ML INH ONE (14:49)
[2021-10-04] MEDS ORDERED: Thiamine IV 100 MG/ML VIAL (only for Bannana Bags !) IVPB SCH (17:00)
[2021-10-04] MEDS ORDERED: Levalbuterol 1.25MG/0.5ML NEB.SOL INH ONE (17:35)
[2021-10-04] MEDS ORDERED: Levalbuterol 1.25MG/0.5ML NEB.SOL ONE (17:46)
[2021-10-04] MEDS ORDERED: Furosemide 40 mg/4 ml IV VIAL IV ONE (18:02)
[2021-10-04] MEDS ORDERED: Metoprolol Tartrate 5 mg VIAL 5 ml VIAL (1 mg/ml) IV ONE ×2 (18:06)
[2021-10-04] MEDS ORDERED: Metoprolol Tartrate 5 mg VIAL 5 ml VIAL (1 mg/ml) ONE (18:17)
[2021-10-04] MEDS: Acetaminophen IV 1 GM/100ML 100 ML IV PRN (18:34)
[2021-10-04] MEDS: Docusate LIQ 100 MG/10 ML UDC PO PRN (19:53)
[2021-10-04] MEDS ORDERED: Cisatracurium 100 MG in NS 0.9% 250 ml 200 ML IV SCH (22:15)
[2021-10-04] MEDS: Dextran 70/Hypromellose Tears Eye Drops 15 ml BTL (for Artificials Tears) BOTH EYES PRN (23:15)
[2021-10-05] MEDS: Chlorhexidine MOUTHWASH 0.12% 15 ML UDC TOPICAL SCH ×6 (02:13→21:15)
[2021-10-05] MEDS: Propofol 10 mg/ml 100 ML BTL 100 ML IV SCH ×8 (02:43→23:24)
[2021-10-05] MEDS: Albuterol/Ipratropium NEB.SOL (2.5/0.5 MG) 3 ML NEB.SOLN INH SCH ×6 (03:22→23:31)
[2021-10-05 04:38] LABS: ABS Lymphocytes 0.5 10^3/ul (1.0-4.8); ABS Monocytes 0.7 10^3/ul (0-0.8); ABS Neutrophils 7.6 10^3/ul (1.5-7.7); Hematocrit 33 % (42-52); Hemoglobin 10.2 g/dL (14.0-18.0); Lymphocyte % 5.5 %; Mean Corpuscular HGB Conc 31 g/dL (31-36); Mean Corpuscular Hemoglobin 24 pg (27-31); Mean Corpuscular Volume 77 fL (80-94); Mean Platelet Volume 7.1 fL (7.4-10.4); Nucleated Red Blood Cells % 0.1; Platelet Count 254 10^3/uL (150-450); Red Blood Count 4.26 10^6 /uL (4.18-5.48); Red Cell Distribution Width 21 % (10-15); White Blood Count 8.8 10^3/uL (3.5-10.8)
[2021-10-05 05:09] LABS: Calcium 8.4 mg/dL (8.6-10.3); Potassium 4.5 mmol/L (3.5-5.0)
[2021-10-05] MEDS: Heparin 5000 UNITS/ML 1 mL VIAL SUBCUT SCH ×3 (05:41→21:15)
[2021-10-05] MEDS: methylPREDNISolone SOD SUCC 40 mg/ml 1 ml VIAL IV SCH ×3 (05:42→21:16)
[2021-10-05] MEDS: Dextran 70/Hypromellose Tears Eye Drops 15 ml BTL (for Artificials Tears) BOTH EYES PRN (06:02)
[2021-10-05] MEDS: Multivitamins ADULT w/MIN LIQ 15 ML UDC NG TUBE SCH (08:28)
[2021-10-05] MEDS: cefTRIAXone 1 gm/50 mL D5W 1 GM/50 ML BAG IV SCH (08:29)
[2021-10-05] MEDS: Lansoprazole SUSP ORALSYR 3 MG/ML FEED TUBE SCH (08:43)
[2021-10-05] MEDS: LORazepam 2 mg VIAL 1 ml IV PUSH PRN ×2 (13:05→17:48)
[2021-10-05 13:58] LABS: Myoglobin 708.5 ng/mL (17.4-105.7)
[2021-10-05 14:15] LABS: HDL Cholesterol 34.5 mg/dL
[2021-10-05] MEDS: Acetaminophen IV 1 GM/100ML 100 ML IV PRN ×2 (15:17→21:34)
[2021-10-05] MEDS ORDERED: fentaNYL 100 mcg/2 ml 50 MCG/ML VIAL IV SLOW PU PRN (15:19)
[2021-10-06] MEDS: Chlorhexidine MOUTHWASH 0.12% 15 ML UDC TOPICAL SCH ×6 (02:08→22:31)
[2021-10-06] MEDS: Propofol 10 mg/ml 100 ML BTL 100 ML IV SCH ×3 (02:31→08:55)
[2021-10-06] MEDS: Albuterol/Ipratropium NEB.SOL (2.5/0.5 MG) 3 ML NEB.SOLN INH SCH ×6 (03:51→22:07)
[2021-10-06 05:49] LABS: ABS Lymphocytes 0.4 10^3/ul (1.0-4.8); ABS Monocytes 0.6 10^3/ul (0-0.8); ABS Neutrophils 3.7 10^3/ul (1.5-7.7); Hematocrit 33 % (42-52); Hemoglobin 10.2 g/dL (14.0-18.0); Lymphocyte % 9.1 %; Mean Corpuscular HGB Conc 31 g/dL (31-36); Mean Corpuscular Hemoglobin 24 pg (27-31); Mean Corpuscular Volume 77 fL (80-94); Mean Platelet Volume 7.2 fL (7.4-10.4); Nucleated Red Blood Cells % 0.2; Platelet Count 251 10^3/uL (150-450); Red Blood Count 4.29 10^6 /uL (4.18-5.48); Red Cell Distribution Width 21 % (10-15); White Blood Count 4.8 10^3/uL (3.5-10.8)
[2021-10-06] MEDS: methylPREDNISolone SOD SUCC 40 mg/ml 1 ml VIAL IV SCH ×3 (06:05→20:04)
[2021-10-06] MEDS: Heparin 5000 UNITS/ML 1 mL VIAL SUBCUT SCH ×3 (06:06→22:31)
[2021-10-06 06:28] LABS: Calcium 8.9 mg/dL (8.6-10.3); Magnesium 2.5 mg/dL (1.9-2.7); Potassium 4.7 mmol/L (3.5-5.0); eGFR CKD-EPI 96.4 (>60)
[2021-10-06] MEDS ORDERED: Vancomycin 1,500 MG in NS 0.9% 250 ml 250 ML IVPB ONE (07:58)
[2021-10-06] MEDS ORDERED: Vancomycin per Pharmacy 1 EA NOTE FOLLOW UP SCH (08:00)
[2021-10-06] MEDS ORDERED: Propofol 10 mg/ml 100 ML BTL 100 ML IV SCH (09:11)
[2021-10-06] MEDS: Cefepime 2 GM in Dextrose 2 GM/50 ML BAG IV SCH ×2 (09:14→20:10)
[2021-10-06] MEDS: Multivitamins ADULT w/MIN LIQ 15 ML UDC NG TUBE SCH (09:24)
[2021-10-06] MEDS: Lansoprazole SUSP ORALSYR 3 MG/ML FEED TUBE SCH (09:24)
[2021-10-06] MEDS ORDERED: fentaNYL INFUSION 50 mcg/mL VL 2,500 MCG/50 ML VIAL IV SCH (10:00)
[2021-10-06] MEDS: Midazolam 50 MG VIAL IV DRIP 50 ML IV SCH ×2 (10:56→23:17)
[2021-10-06] MEDS ORDERED: fentaNYL 100 mcg/2 ml 50 MCG/ML VIAL IV SLOW PU PRN (10:57)
[2021-10-06] MEDS ORDERED: Furosemide 20 mg/2 ml IV VIAL IV ONE (11:41)
[2021-10-06] MEDS ORDERED: Albuterol/Ipratropium NEB.SOL (2.5/0.5 MG) 3 ML NEB.SOLN INH SCH (13:00)
[2021-10-06] MEDS ORDERED: Labetalol IV 5 MG/ML 20 ml VIAL IV PUSH ONE (17:05)
[2021-10-06] MEDS: fentaNYL 100 mcg/2 ml 50 MCG/ML VIAL IV SLOW PU PRN ×2 (17:27→21:43)
[2021-10-06] MEDS: Vancomycin 1,250 MG in NS 0.9% 250 ml 250 ML IVPB SCH (18:42)
[2021-10-06] MEDS: Dextran 70/Hypromellose Tears Eye Drops 15 ml BTL (for Artificials Tears) BOTH EYES PRN (18:53)
[2021-10-06] MEDS: Docusate LIQ 100 MG/10 ML UDC PO SCH (20:04)
[2021-10-06] MEDS: Saline FLUSH-CENTRAL 10 ML SYRINGE CENT\\PICC SCH (20:05)
[2021-10-06] MEDS: hydrALAZINE 20 mg/ml 1 ML Vial IV IV SLOW PU PRN (21:02)
[2021-10-06] MEDS ORDERED: niCARdipine 0.1MG/ML IVPREMIX 20 MG/200 ML BAG IV ONE (23:04)
[2021-10-06] MEDS: niCARdipine 0.1MG/ML IVPREMIX 20 MG/200 ML BAG IV SCH (23:17)
[2021-10-07] MEDS: fentaNYL 100 mcg/2 ml 50 MCG/ML VIAL IV SLOW PU PRN (00:03)
[2021-10-07] MEDS: niCARdipine 0.1MG/ML IVPREMIX 20 MG/200 ML BAG IV SCH ×10 (01:19→22:58)
[2021-10-07] MEDS: Vancomycin 1,250 MG in NS 0.9% 250 ml 250 ML IVPB SCH ×2 (01:57→10:05)
[2021-10-07] MEDS: Chlorhexidine MOUTHWASH 0.12% 15 ML UDC TOPICAL SCH ×6 (01:57→21:38)
[2021-10-07] MEDS: Albuterol/Ipratropium NEB.SOL (2.5/0.5 MG) 3 ML NEB.SOLN INH SCH ×6 (03:22→23:42)
[2021-10-07 04:34] LABS: ABS Lymphocytes 0.8 10^3/ul (1.0-4.8); ABS Neutrophils 4.2 10^3/ul (1.5-7.7); Hematocrit 31 % (42-52); Hemoglobin 9.7 g/dL (14.0-18.0); Lymphocyte % 12.6 %; Mean Corpuscular HGB Conc 31 g/dL (31-36); Mean Corpuscular Hemoglobin 24 pg (27-31); Mean Corpuscular Volume 77 fL (80-94); Mean Platelet Volume 7.1 fL (7.4-10.4); Nucleated Red Blood Cells % 0.1; Platelet Count 228 10^3/uL (150-450); Red Blood Count 4.09 10^6 /uL (4.18-5.48); Red Cell Distribution Width 21 % (10-15)
[2021-10-07] MEDS: Heparin 5000 UNITS/ML 1 mL VIAL SUBCUT SCH ×3 (05:15→21:38)
[2021-10-07] MEDS: methylPREDNISolone SOD SUCC 40 mg/ml 1 ml VIAL IV SCH ×3 (05:15→20:15)
[2021-10-07 05:16] LABS: Albumin 3.1 g/dL (3.2-5.2); Albumin/Globulin Ratio 1.6 (1-3); Calcium 7.7 mg/dL (8.6-10.3); Potassium 4.3 mmol/L (3.5-5.0); Total Bilirubin 0.3 mg/dL (0.2-1.0); Total Protein 5.1 g/dL (6.4-8.9); eGFR CKD-EPI 107.8 (>60)
[2021-10-07 05:21] LABS: Myoglobin 458.2 ng/mL (17.4-105.7)
[2021-10-07] MEDS: Cefepime 2 GM in Dextrose 2 GM/50 ML BAG IV SCH ×2 (07:28→20:53)
[2021-10-07] MEDS: Saline FLUSH-CENTRAL 10 ML SYRINGE CENT\\PICC SCH ×2 (07:28→20:15)
[2021-10-07] MEDS: Multivitamins ADULT w/MIN LIQ 15 ML UDC NG TUBE SCH (08:10)
[2021-10-07] MEDS: Docusate LIQ 100 MG/10 ML UDC PO SCH ×2 (08:11→20:14)
[2021-10-07] MEDS: Senna TAB 8.6 mg TAB PO SCH (08:11)
[2021-10-07] MEDS: Polyethylene Glycol 3350 17 GM PACKET PO SCH (08:12)
[2021-10-07] MEDS: Lansoprazole SUSP ORALSYR 3 MG/ML FEED TUBE SCH (08:14)
[2021-10-07] MEDS ORDERED: Thiamine 100 MG/ML 2 ml VIAL 250 MG in NS 0.9% 100 ml BAG 100 ML IV SCH (09:00)
[2021-10-07] MEDS ORDERED: Vancomycin Trough Check NOTE FOLLOW UP ONE (09:30)
[2021-10-07] MEDS ORDERED: acetaZOLAMIDE IV 500 MG in NS 0.9% 50 ML 50 ML IVPB ONE (09:38)
[2021-10-07] MEDS ORDERED: NS 0.9% 50 ML 50 ML ONE (09:59)
[2021-10-07] MEDS: Pantoprazole VIAL 40 MG VIAL IV SCH (13:52)
[2021-10-07] MEDS: Acetaminophen IV 1 GM/100ML 100 ML IV PRN (16:40)
[2021-10-07] MEDS: NS 0.9% IVPB SCH (18:01)
[2021-10-07] MEDS: VANCOMYCIN IVPB SCH (18:01)
[2021-10-07] MEDS: Midazolam 50 MG VIAL IV DRIP 50 ML IV SCH (21:38)
[2021-10-08] MEDS: NS 0.9% IVPB SCH ×3 (01:59→20:15)
[2021-10-08] MEDS: VANCOMYCIN IVPB SCH ×3 (01:59→20:15)
[2021-10-08] MEDS: Chlorhexidine MOUTHWASH 0.12% 15 ML UDC TOPICAL SCH ×6 (01:59→20:55)
[2021-10-08] MEDS: Albuterol/Ipratropium NEB.SOL (2.5/0.5 MG) 3 ML NEB.SOLN INH SCH ×5 (03:47→19:17)
[2021-10-08] MEDS: Heparin 5000 UNITS/ML 1 mL VIAL SUBCUT SCH ×3 (05:03→20:55)
[2021-10-08] MEDS: methylPREDNISolone SOD SUCC 40 mg/ml 1 ml VIAL IV SCH ×3 (05:04→14:34)
[2021-10-08 05:10] LABS: ABS Lymphocytes 0.5 10^3/ul (1.0-4.8); ABS Monocytes 0.4 10^3/ul (0-0.8); ABS Neutrophils 4.7 10^3/ul (1.5-7.7); Hematocrit 34 % (42-52); Hemoglobin 10.4 g/dL (14.0-18.0); Lymphocyte % 8.8 %; Mean Corpuscular HGB Conc 31 g/dL (31-36); Mean Corpuscular Hemoglobin 24 pg (27-31); Mean Corpuscular Volume 77 fL (80-94); Mean Platelet Volume 7.6 fL (7.4-10.4); Nucleated Red Blood Cells % 0.3; Platelet Count 275 10^3/uL (150-450); Red Blood Count 4.34 10^6 /uL (4.18-5.48); Red Cell Distribution Width 21 % (10-15); White Blood Count 5.6 10^3/uL (3.5-10.8)
[2021-10-08 05:43] LABS: Albumin 3.4 g/dL (3.2-5.2); Albumin/Globulin Ratio 1.5 (1-3); Globulin 2.3 g/dL (2-4); Magnesium 2.2 mg/dL (1.9-2.7); Phosphorus 4.1 mg/dL (2.5-5.0); Potassium 4.2 mmol/L (3.5-5.0); Total Bilirubin 0.3 mg/dL (0.2-1.0); Total Protein 5.7 g/dL (6.4-8.9); eGFR CKD-EPI 100.4 (>60)
[2021-10-08 05:47] LABS: Myoglobin 267.3 ng/mL (17.4-105.7)
[2021-10-08] MEDS: niCARdipine 0.1MG/ML IVPREMIX 20 MG/200 ML BAG IV SCH (06:58)
[2021-10-08] MEDS: Cefepime 2 GM in Dextrose 2 GM/50 ML BAG IV SCH ×2 (07:15→20:55)
[2021-10-08] MEDS: Saline FLUSH-CENTRAL 10 ML SYRINGE CENT\\PICC SCH ×2 (07:25→20:56)
[2021-10-08] MEDS: Multivitamins ADULT w/MIN LIQ 15 ML UDC NG TUBE SCH (08:24)
[2021-10-08] MEDS: Pantoprazole VIAL 40 MG VIAL IV SCH (08:25)
[2021-10-08] MEDS: Senna TAB 8.6 mg TAB PO SCH (08:25)
[2021-10-08] MEDS: Docusate LIQ 100 MG/10 ML UDC PO SCH ×2 (08:26→20:55)
[2021-10-08] MEDS: Polyethylene Glycol 3350 17 GM PACKET PO SCH (08:26)
[2021-10-08] MEDS ORDERED: Furosemide 40 mg/4 ml IV VIAL IV SLOW PU ONE (14:21)
[2021-10-08] MEDS ORDERED: Vancomycin Trough Check NOTE FOLLOW UP ONE (17:30)
[2021-10-08] MEDS: hydrALAZINE 20 mg/ml 1 ML Vial IV IV SLOW PU PRN (20:55)
[2021-10-08] MEDS ORDERED: Vancomycin 1,750 MG in NS 0.9% 500 ml BAG 500 ML IVPB SCH (22:00)
[2021-10-09] MEDS: Albuterol/Ipratropium NEB.SOL (2.5/0.5 MG) 3 ML NEB.SOLN INH SCH ×7 (00:35→22:43)
[2021-10-09] MEDS: Acetaminophen IV 1 GM/100ML 100 ML IV PRN (00:38)
[2021-10-09] MEDS: Chlorhexidine MOUTHWASH 0.12% 15 ML UDC TOPICAL SCH ×6 (00:38→20:40)
[2021-10-09] MEDS: methylPREDNISolone SOD SUCC 40 mg/ml 1 ml VIAL IV SCH (03:28)
[2021-10-09] MEDS: fentaNYL 100 mcg/2 ml 50 MCG/ML VIAL IV SLOW PU PRN ×2 (03:28→19:13)
[2021-10-09] MEDS: Heparin 5000 UNITS/ML 1 mL VIAL SUBCUT SCH ×3 (05:33→20:43)
[2021-10-09 05:40] LABS: ABS Lymphocytes 0.5 10^3/ul (1.0-4.8); ABS Monocytes 0.8 10^3/ul (0-0.8); ABS Neutrophils 6.7 10^3/ul (1.5-7.7); Hematocrit 33 % (42-52); Hemoglobin 10.1 g/dL (14.0-18.0); Lymphocyte % 6.1 %; Mean Corpuscular HGB Conc 31 g/dL (31-36); Mean Corpuscular Hemoglobin 24 pg (27-31); Mean Corpuscular Volume 77 fL (80-94); Mean Platelet Volume 7.4 fL (7.4-10.4); Nucleated Red Blood Cells % 0.2; Platelet Count 288 10^3/uL (150-450); Red Blood Count 4.27 10^6 /uL (4.18-5.48); Red Cell Distribution Width 21 % (10-15)
[2021-10-09 06:25] LABS: Albumin 3.2 g/dL (3.2-5.2); Albumin/Globulin Ratio 1.4 (1-3); Calcium 9.4 mg/dL (8.6-10.3); Globulin 2.3 g/dL (2-4); Magnesium 2.2 mg/dL (1.9-2.7); Phosphorus 4.2 mg/dL (2.5-5.0); Potassium 4.4 mmol/L (3.5-5.0); Total Bilirubin 0.3 mg/dL (0.2-1.0); Total Protein 5.5 g/dL (6.4-8.9); eGFR CKD-EPI 98.8 (>60)
[2021-10-09] MEDS: Cefepime 2 GM in Dextrose 2 GM/50 ML BAG IV SCH ×2 (08:19→09:37)
[2021-10-09] MEDS: Senna TAB 8.6 mg TAB PO SCH (08:20)
[2021-10-09] MEDS: Docusate LIQ 100 MG/10 ML UDC PO SCH ×2 (08:20→20:40)
[2021-10-09] MEDS: Polyethylene Glycol 3350 17 GM PACKET PO SCH (08:20)
[2021-10-09] MEDS: Multivitamins ADULT w/MIN LIQ 15 ML UDC NG TUBE SCH (08:20)
[2021-10-09] MEDS: Pantoprazole VIAL 40 MG VIAL IV SCH (08:21)
[2021-10-09 08:43] LABS: PCO2 Arterial 65 mmHg (35-45); PO2 Arterial 69 mmHg (80-100)
[2021-10-09] MEDS: Saline FLUSH-CENTRAL 10 ML SYRINGE CENT\\PICC SCH ×2 (08:49→20:44)
[2021-10-09] MEDS: cefTRIAXone 1 gm/50 mL D5W 1 GM/50 ML BAG IV SCH (08:51)
[2021-10-09] MEDS: DOXYcycline 100 MG in NS 0.9% 250 ml 250 ML IVPB SCH ×2 (10:46→22:05)
[2021-10-09] MEDS: hydrALAZINE 20 mg/ml 1 ML Vial IV IV SLOW PU PRN (12:25)
[2021-10-09] MEDS: Dextran 70/Hypromellose Tears Eye Drops 15 ml BTL (for Artificials Tears) BOTH EYES PRN (14:59)
[2021-10-09] MEDS ORDERED: Dexmedetomidine 1,000 MCG in NS 0.9% 250 ml 240 ML IV SCH (15:30)
[2021-10-10] MEDS: Chlorhexidine MOUTHWASH 0.12% 15 ML UDC TOPICAL SCH ×6 (01:03→21:14)
[2021-10-10] MEDS: Albuterol/Ipratropium NEB.SOL (2.5/0.5 MG) 3 ML NEB.SOLN INH SCH ×6 (03:50→23:51)
[2021-10-10 05:00] LABS: ABS Lymphocytes 0.9 10^3/ul (1.0-4.8); ABS Neutrophils 5.4 10^3/ul (1.5-7.7); Eosinophil % 0.1 %; Hematocrit 35 % (42-52); Hemoglobin 10.3 g/dL (14.0-18.0); Lymphocyte % 12.5 %; Mean Corpuscular HGB Conc 30 g/dL (31-36); Mean Corpuscular Hemoglobin 23 pg (27-31); Mean Corpuscular Volume 78 fL (80-94); Mean Platelet Volume 7.8 fL (7.4-10.4); Nucleated Red Blood Cells % 0.1; Platelet Count 291 10^3/uL (150-450); Red Blood Count 4.41 10^6 /uL (4.18-5.48); Red Cell Distribution Width 21 % (10-15); White Blood Count 7.3 10^3/uL (3.5-10.8)
[2021-10-10] MEDS: Heparin 5000 UNITS/ML 1 mL VIAL SUBCUT SCH ×3 (05:10→21:18)
[2021-10-10 05:46] LABS: Albumin 3.2 g/dL (3.2-5.2); Albumin/Globulin Ratio 1.5 (1-3); Calcium 9.3 mg/dL (8.6-10.3); Globulin 2.2 g/dL (2-4); Magnesium 2.1 mg/dL (1.9-2.7); Phosphorus 3.5 mg/dL (2.5-5.0); Potassium 3.9 mmol/L (3.5-5.0); Total Bilirubin 0.3 mg/dL (0.2-1.0); Total Protein 5.4 g/dL (6.4-8.9); eGFR CKD-EPI 96.7 (>60)
[2021-10-10] MEDS: Saline FLUSH-CENTRAL 10 ML SYRINGE CENT\\PICC SCH ×2 (07:34→20:57)
[2021-10-10] MEDS: cefTRIAXone 1 gm/50 mL D5W 1 GM/50 ML BAG IV SCH (08:48)
[2021-10-10] MEDS: Docusate LIQ 100 MG/10 ML UDC PO SCH ×2 (08:49→21:14)
[2021-10-10] MEDS: Pantoprazole VIAL 40 MG VIAL IV SCH (08:49)
[2021-10-10] MEDS: Senna TAB 8.6 mg TAB PO SCH (08:51)
[2021-10-10] MEDS: Polyethylene Glycol 3350 17 GM PACKET PO SCH (08:56)
[2021-10-10] MEDS: Multivitamins ADULT w/MIN LIQ 15 ML UDC NG TUBE SCH (08:56)
[2021-10-10] MEDS ORDERED: methylPREDNISolone SOD SUCC 40 mg/ml 1 ml VIAL IV SCH (09:00)
[2021-10-10] MEDS ORDERED: Vancomycin Trough Check NOTE FOLLOW UP ONE (09:30)
[2021-10-10] MEDS ORDERED: Metoprolol Tartrate 5 mg VIAL 5 ml VIAL (1 mg/ml) ONE (10:45)
[2021-10-10] MEDS: Metoprolol Tartrate 5 mg VIAL 5 ml VIAL (1 mg/ml) IV PRN ×2 (10:47→16:49)
[2021-10-10] MEDS: DOXYcycline 100 MG in NS 0.9% 250 ml 250 ML IVPB SCH ×2 (11:12→21:15)
[2021-10-10] MEDS: Propofol 10 mg/ml 100 ML BTL 100 ML IV SCH ×2 (13:46→21:29)
[2021-10-10] MEDS: fentaNYL 100 mcg/2 ml 50 MCG/ML VIAL IV SLOW PU PRN (14:38)
[2021-10-10] MEDS ORDERED: Lorazepam PYXIS KEY PRN (15:43)
[2021-10-10] MEDS: Acetaminophen IV 1 GM/100ML 100 ML IV PRN (15:48)
[2021-10-10] MEDS ORDERED: D5W 1/2 NS 1000 ml BAG 1,000 ML IV SCH (16:00)
[2021-10-10] MEDS: LORazepam 2 mg VIAL 1 ml IV PUSH PRN (16:49)
[2021-10-11] MEDS: Chlorhexidine MOUTHWASH 0.12% 15 ML UDC TOPICAL SCH ×6 (02:12→21:00)
[2021-10-11] MEDS: Propofol 10 mg/ml 100 ML BTL 100 ML IV SCH ×3 (03:45→18:23)
[2021-10-11] MEDS: Albuterol/Ipratropium NEB.SOL (2.5/0.5 MG) 3 ML NEB.SOLN INH SCH ×5 (03:47→19:00)
[2021-10-11 04:41] LABS: ABS Basophils 0.1 10^3/ul (0-0.2); ABS Lymphocytes 1.3 10^3/ul (1.0-4.8); ABS Monocytes 1.1 10^3/ul (0-0.8); ABS Neutrophils 6.8 10^3/ul (1.5-7.7); Eosinophil % 0.2 %; Hematocrit 33 % (42-52); Hemoglobin 10.1 g/dL (14.0-18.0); Lymphocyte % 13.5 %; Mean Corpuscular HGB Conc 31 g/dL (31-36); Mean Corpuscular Hemoglobin 24 pg (27-31); Mean Corpuscular Volume 79 fL (80-94); Platelet Count 256 10^3/uL (150-450); Red Blood Count 4.16 10^6 /uL (4.18-5.48); Red Cell Distribution Width 21 % (10-15); White Blood Count 9.2 10^3/uL (3.5-10.8)
[2021-10-11 05:08] LABS: Calcium 9.1 mg/dL (8.6-10.3); Potassium 3.9 mmol/L (3.5-5.0); eGFR CKD-EPI 97.4 (>60)
[2021-10-11] MEDS: Heparin 5000 UNITS/ML 1 mL VIAL SUBCUT SCH ×3 (06:00→23:38)
[2021-10-11] MEDS: fentaNYL 100 mcg/2 ml 50 MCG/ML VIAL IV SLOW PU PRN ×5 (07:19→23:27)
[2021-10-11 07:33] LABS: Magnesium 2.1 mg/dL (1.9-2.7)
[2021-10-11] MEDS: Pantoprazole VIAL 40 MG VIAL IV SCH (08:11)
[2021-10-11] MEDS: Multivitamins ADULT w/MIN LIQ 15 ML UDC NG TUBE SCH (08:13)
[2021-10-11] MEDS: Acetaminophen IV 1 GM/100ML 100 ML IV PRN ×2 (08:26→17:00)
[2021-10-11] MEDS: cefTRIAXone 1 gm/50 mL D5W 1 GM/50 ML BAG IV SCH (08:27)
[2021-10-11] MEDS: Saline FLUSH-CENTRAL 10 ML SYRINGE CENT\\PICC SCH ×2 (08:30→19:15)
[2021-10-11] MEDS: Senna TAB 8.6 mg TAB PO SCH (08:31)
[2021-10-11] MEDS: Polyethylene Glycol 3350 17 GM PACKET PO SCH (08:31)
[2021-10-11] MEDS: Docusate LIQ 100 MG/10 ML UDC PO SCH ×2 (08:31→19:23)
[2021-10-11] MEDS: DOXYcycline 100 MG in NS 0.9% 250 ml 250 ML IVPB SCH ×2 (10:30→22:35)
[2021-10-11] MEDS ORDERED: Propofol 10 MG/ML 20 ML BTL ONE (10:48)
[2021-10-11] MEDS ORDERED: Piperacillin/Tazobac ADVAN 3.375 GM in NS 0.9% 100 ml BAG 100 ML IV ONE (11:07)
[2021-10-11] MEDS ORDERED: Zosyn per Pharmacy NOTE FOLLOW UP SCH (12:00)
[2021-10-11] MEDS: Linezolid 600 MG IVPREMIX(*) 600 MG/300 ML BAG IVPB SCH (13:34)
[2021-10-11] MEDS: ZOSYN 3.375 GM Q8H per EXTENDED INFUSION IV SCH (16:58)
[2021-10-11] MEDS: Metoprolol Tartrate 5 mg VIAL 5 ml VIAL (1 mg/ml) IV PRN (17:02)
[2021-10-12] MEDS: Albuterol/Ipratropium NEB.SOL (2.5/0.5 MG) 3 ML NEB.SOLN INH SCH ×7 (00:14→22:41)
[2021-10-12] MEDS: ZOSYN 3.375 GM Q8H per EXTENDED INFUSION IV SCH ×3 (01:30→16:51)
[2021-10-12] MEDS: Linezolid 600 MG IVPREMIX(*) 600 MG/300 ML BAG IVPB SCH ×2 (01:57→13:21)
[2021-10-12] MEDS: Chlorhexidine MOUTHWASH 0.12% 15 ML UDC TOPICAL SCH ×6 (01:57→20:19)
[2021-10-12] MEDS: Propofol 10 mg/ml 100 ML BTL 100 ML IV SCH ×5 (02:30→21:58)
[2021-10-12] MEDS: fentaNYL 100 mcg/2 ml 50 MCG/ML VIAL IV SLOW PU PRN ×3 (03:50→19:38)
[2021-10-12] MEDS: Acetaminophen IV 1 GM/100ML 100 ML IV PRN ×2 (04:12→10:28)
[2021-10-12] MEDS: LORazepam 2 mg VIAL 1 ml IV PUSH PRN (04:50)
[2021-10-12 04:59] LABS: ABS Eosinophils 0.1 10^3/ul (0-0.6); ABS Lymphocytes 1.4 10^3/ul (1.0-4.8); ABS Monocytes 0.7 10^3/ul (0-0.8); ABS Neutrophils 7.6 10^3/ul (1.5-7.7); Eosinophil % 0.8 %; Hematocrit 31 % (42-52); Hemoglobin 9.5 g/dL (14.0-18.0); Mean Corpuscular HGB Conc 31 g/dL (31-36); Mean Corpuscular Hemoglobin 24 pg (27-31); Mean Corpuscular Volume 77 fL (80-94); Nucleated Red Blood Cells % 0.1; Platelet Count 240 10^3/uL (150-450); Red Blood Count 3.97 10^6 /uL (4.18-5.48); Red Cell Distribution Width 21 % (10-15); White Blood Count 9.9 10^3/uL (3.5-10.8)
[2021-10-12 05:18] LABS: Calcium 8.6 mg/dL (8.6-10.3); Magnesium 1.8 mg/dL (1.9-2.7); Phosphorus 2.5 mg/dL (2.5-5.0); Potassium 3.8 mmol/L (3.5-5.0)
[2021-10-12] MEDS: Heparin 5000 UNITS/ML 1 mL VIAL SUBCUT SCH ×3 (05:19→20:20)
[2021-10-12] MEDS: Polyethylene Glycol 3350 17 GM PACKET PO SCH (08:10)
[2021-10-12] MEDS: Pantoprazole VIAL 40 MG VIAL IV SCH (08:10)
[2021-10-12] MEDS ORDERED: Anidulafungin 100 MG in NS 0.9% 100 ml BAG 100 ML IVPB ONE (08:10)
[2021-10-12] MEDS: Multivitamins ADULT w/MIN LIQ 15 ML UDC NG TUBE SCH (08:10)
[2021-10-12] MEDS: Docusate LIQ 100 MG/10 ML UDC PO SCH ×2 (08:10→20:19)
[2021-10-12] MEDS: Metoprolol Tartrate 5 mg VIAL 5 ml VIAL (1 mg/ml) IV PRN (08:19)
[2021-10-12] MEDS: Saline FLUSH-CENTRAL 10 ML SYRINGE CENT\\PICC SCH ×2 (08:50→20:20)
[2021-10-12] MEDS: Senna TAB 8.6 mg TAB PO SCH (08:50)
[2021-10-12] MEDS ORDERED: Anidulafungin 200 MG in NS 0.9% 200 ML IVPB ONE (09:00)
[2021-10-12] MEDS: DOXYcycline 100 MG in NS 0.9% 250 ml 250 ML IVPB SCH ×2 (11:24→20:20)
[2021-10-12] MEDS ORDERED: D5W 1000 ml BAG 1,000 ML IV SCH (13:00)
[2021-10-12] MEDS ORDERED: NS 0.9% 250 ml 250 ML ONE (20:10)
[2021-10-12] MEDS ORDERED: NS 0.9% 100 ml BAG 100 ML ONE (20:10)
[2021-10-13] MEDS ORDERED: NS 0.9% 100 ml BAG 100 ML ONE ×2 (00:16→19:40)
[2021-10-13] MEDS: Propofol 10 mg/ml 100 ML BTL 100 ML IV SCH ×3 (00:31→07:38)
[2021-10-13] MEDS: Linezolid 600 MG IVPREMIX(*) 600 MG/300 ML BAG IVPB SCH ×2 (00:32→13:07)
[2021-10-13] MEDS: ZOSYN 3.375 GM Q8H per EXTENDED INFUSION IV SCH ×3 (00:32→15:47)
[2021-10-13] MEDS: Chlorhexidine MOUTHWASH 0.12% 15 ML UDC TOPICAL SCH ×6 (01:16→22:03)
[2021-10-13] MEDS: fentaNYL 100 mcg/2 ml 50 MCG/ML VIAL IV SLOW PU PRN ×3 (03:02→19:43)
[2021-10-13] MEDS: Albuterol/Ipratropium NEB.SOL (2.5/0.5 MG) 3 ML NEB.SOLN INH SCH ×5 (03:34→20:14)
[2021-10-13 04:18] LABS: ABS Basophils 0.1 10^3/ul (0-0.2); ABS Eosinophils 0.2 10^3/ul (0-0.6); ABS Lymphocytes 1.4 10^3/ul (1.0-4.8); ABS Monocytes 0.5 10^3/ul (0-0.8); Hematocrit 30 % (42-52); Hemoglobin 9.8 g/dL (14.0-18.0); Lymphocyte % 15.5 %; Mean Corpuscular HGB Conc 32 g/dL (31-36); Mean Corpuscular Hemoglobin 26 pg (27-31); Mean Corpuscular Volume 79 fL (80-94); Mean Platelet Volume 8.3 fL (7.4-10.4); Nucleated Red Blood Cells % 0.2; Platelet Count 198 10^3/uL (150-450); Red Blood Count 3.82 10^6 /uL (4.18-5.48); Red Cell Distribution Width 21 % (10-15); White Blood Count 9.2 10^3/uL (3.5-10.8)
[2021-10-13 04:52] LABS: Anion Gap 5 mmol/L (2-11); CO2 Carbon Dioxide 31 mmol/L (22-32); Chloride 98 mmol/L (101-111); Magnesium 1.8 mg/dL (1.9-2.7); Sodium 134 mmol/L (135-145)
[2021-10-13 04:58] LABS: Blood Urea Nitrogen 26 mg/dL (6-24); Glucose 184 mg/dL (70-100); eGFR CKD-EPI 103.3 (>60)
[2021-10-13 05:54] LABS: Potassium, Whole Blood 4.6 mmol/L (3.4-4.5)
[2021-10-13] MEDS: Heparin 5000 UNITS/ML 1 mL VIAL SUBCUT SCH ×3 (06:03→22:02)
[2021-10-13] MEDS: Multivitamins ADULT w/MIN LIQ 15 ML UDC NG TUBE SCH (07:36)
[2021-10-13] MEDS: Docusate LIQ 100 MG/10 ML UDC PO SCH ×2 (07:36→22:03)
[2021-10-13] MEDS: Pantoprazole VIAL 40 MG VIAL IV SCH (07:37)
[2021-10-13] MEDS: Senna TAB 8.6 mg TAB PO SCH (07:37)
[2021-10-13] MEDS: Polyethylene Glycol 3350 17 GM PACKET PO SCH (07:37)
[2021-10-13] MEDS: Saline FLUSH-CENTRAL 10 ML SYRINGE CENT\\PICC SCH ×2 (07:38→19:44)
[2021-10-13] MEDS ORDERED: Magnesium Sulfate IV 1GM/100ML 1 GM/100 ML BAG IV ONE (07:40)
[2021-10-13] MEDS: Anidulafungin 100 MG in NS 0.9% 100 ml BAG 100 ML IVPB SCH (09:03)
[2021-10-13] MEDS: DOXYcycline 100 MG in NS 0.9% 250 ml 250 ML IVPB SCH (11:07)
[2021-10-13 11:13] LABS: PCO2 Arterial 53 mmHg (35-45); PO2 Arterial 65 mmHg (80-100)
[2021-10-13] MEDS: Acetaminophen IV 1 GM/100ML 100 ML IV PRN (14:19)
[2021-10-13 17:29] LABS: PCO2 Arterial 45 mmHg (35-45); PO2 Arterial 74 mmHg (80-100)
[2021-10-13] MEDS ORDERED: Metoprolol Tartrate 5 mg VIAL 5 ml VIAL (1 mg/ml) IV ONE (20:45)
[2021-10-13] MEDS ORDERED: NS 0.9% 250 ml 250 ML ONE (21:42)
[2021-10-14] MEDS: Albuterol/Ipratropium NEB.SOL (2.5/0.5 MG) 3 ML NEB.SOLN INH SCH ×6 (00:26→20:11)
[2021-10-14] MEDS: ZOSYN 3.375 GM Q8H per EXTENDED INFUSION IV SCH ×3 (00:30→16:04)
[2021-10-14] MEDS: DOXYcycline 100 MG in NS 0.9% 250 ml 250 ML IVPB SCH ×3 (00:30→21:15)
[2021-10-14] MEDS: Linezolid 600 MG IVPREMIX(*) 600 MG/300 ML BAG IVPB SCH ×2 (00:30→12:59)
[2021-10-14] MEDS: Chlorhexidine MOUTHWASH 0.12% 15 ML UDC TOPICAL SCH ×2 (02:00→05:47)
[2021-10-14] MEDS ORDERED: NS 0.9% 100 ml BAG 100 ML ONE (02:54)
[2021-10-14] MEDS: LORazepam 2 mg VIAL 1 ml IV PUSH PRN ×2 (02:59→22:27)
[2021-10-14 05:19] LABS: ABS Eosinophils 0.1 10^3/ul (0-0.6); ABS Lymphocytes 1.3 10^3/ul (1.0-4.8); ABS Monocytes 0.8 10^3/ul (0-0.8); ABS Neutrophils 6.9 10^3/ul (1.5-7.7); Eosinophil % 1.4 %; Hematocrit 30 % (42-52); Hemoglobin 9.4 g/dL (14.0-18.0); Lymphocyte % 13.8 %; Mean Corpuscular HGB Conc 31 g/dL (31-36); Mean Corpuscular Hemoglobin 24 pg (27-31); Mean Corpuscular Volume 77 fL (80-94); Mean Platelet Volume 8.6 fL (7.4-10.4); Platelet Count 212 10^3/uL (150-450); Red Blood Count 3.95 10^6 /uL (4.18-5.48); Red Cell Distribution Width 21 % (10-15); White Blood Count 9.1 10^3/uL (3.5-10.8)
[2021-10-14] MEDS: Heparin 5000 UNITS/ML 1 mL VIAL SUBCUT SCH ×3 (05:47→21:17)
[2021-10-14 06:03] LABS: Calcium 8.3 mg/dL (8.6-10.3); Magnesium 1.6 mg/dL (1.9-2.7); Potassium 3.1 mmol/L (3.5-5.0)
[2021-10-14] MEDS ORDERED: Magnesium Sulfate 2 gm BAG 2 GM/50 ML BAG IVPB ONE (07:12)
[2021-10-14] MEDS ORDERED: Metoprolol Tartrate 5 mg VIAL 5 ml VIAL (1 mg/ml) IV PRN (07:16)
[2021-10-14] MEDS ORDERED: Magnesium Sulfate 2 gm BAG 2 GM/50 ML BAG ONE (07:16)
[2021-10-14] MEDS: KCL 20 MEQ/100 ML IVPREMIX 20 MEQ/100 ML BAG IV SCH ×3 (07:53→12:07)
[2021-10-14] MEDS: Metoprolol Tartrate 5 mg VIAL 5 ml VIAL (1 mg/ml) IV PRN ×4 (07:59→23:28)
[2021-10-14] MEDS ORDERED: D5W KCl 40 MEQ 1000 ml 1,000 ML IV SCH (08:00)
[2021-10-14] MEDS: Saline FLUSH-CENTRAL 10 ML SYRINGE CENT\\PICC SCH ×2 (08:01→20:58)
[2021-10-14] MEDS ORDERED: Albuterol HFA INHALER 8 gm MDI INH PRN (08:19)
[2021-10-14] MEDS ORDERED: D5W 1/2 NS 40 Meq KCL 1000 ml 1,000 ML IV SCH ×2 (09:00→22:53)
[2021-10-14] MEDS: Docusate LIQ 100 MG/10 ML UDC PO SCH (09:06)
[2021-10-14] MEDS: Multivitamins ADULT w/MIN LIQ 15 ML UDC NG TUBE SCH (09:07)
[2021-10-14] MEDS: Senna TAB 8.6 mg TAB PO SCH (09:07)
[2021-10-14] MEDS: Polyethylene Glycol 3350 17 GM PACKET PO SCH (09:07)
[2021-10-14] MEDS: Anidulafungin 100 MG in NS 0.9% 100 ml BAG 100 ML IVPB SCH (09:20)
[2021-10-14] MEDS: Pantoprazole VIAL 40 MG VIAL IV SCH (10:16)
[2021-10-14] MEDS ORDERED: Albuterol/Ipratropium NEB.SOL (2.5/0.5 MG) 3 ML NEB.SOLN INH SCH (13:00)
[2021-10-14] MEDS: Acetaminophen IV 1 GM/100ML 100 ML IV PRN (18:35)
[2021-10-14] MEDS: fentaNYL 100 mcg/2 ml 50 MCG/ML VIAL IV SLOW PU PRN ×2 (18:49→21:17)
[2021-10-14] MEDS ORDERED: Acyclovir IV 500 MG/10 ML 100 ML VIAL (500 MG) IVPB SCH (23:00)
[2021-10-15] MEDS ORDERED: NS 0.9% IVPB SCH
[2021-10-15] MEDS ORDERED: ACYCLOVIR IVPB SCH
[2021-10-15] MEDS ORDERED: Rocuronium 50 mg VIAL 10 mg/ml 5 ml VIAL (50 mg) ONE (00:03)
[2021-10-15] MEDS ORDERED: Succinylcholine 200 mg VIAL 20 mg/ml 10 ml VIAL (200 mg) ONE (00:03)
[2021-10-15] MEDS: Acetaminophen IV 1 GM/100ML 100 ML IV PRN ×3 (00:09→23:09)
[2021-10-15] MEDS ORDERED: Etomidate 20 mg/10 ml 2 MG/ML 10 ml VIAL ONE (00:13)
[2021-10-15] MEDS ORDERED: Propofol 10 MG/ML 20 ML BTL ONE (00:18)
[2021-10-15] MEDS ORDERED: niCARdipine 0.1MG/ML IVPREMIX 20 MG/200 ML BAG IV ONE (00:31)
[2021-10-15] MEDS: Propofol 10 mg/ml 100 ML BTL 100 ML IV SCH ×4 (00:34→21:52)
[2021-10-15] MEDS: niCARdipine 0.1MG/ML IVPREMIX 20 MG/200 ML BAG IV SCH ×2 (00:35→04:29)
[2021-10-15] MEDS: ZOSYN 3.375 GM Q8H per EXTENDED INFUSION IV SCH ×2 (01:38→07:58)
[2021-10-15 03:28] LABS: ABS Basophils 0.2 10^3/ul (0-0.2); ABS Lymphocytes 0.7 10^3/ul (1.0-4.8); ABS Monocytes 1.5 10^3/ul (0-0.8); ABS Neutrophils 15.8 10^3/ul (1.5-7.7); Eosinophil % 0.1 %; Hematocrit 31 % (42-52); Hemoglobin 9.6 g/dL (14.0-18.0); Lymphocyte % 3.8 %; Mean Corpuscular HGB Conc 31 g/dL (31-36); Mean Corpuscular Hemoglobin 24 pg (27-31); Mean Corpuscular Volume 78 fL (80-94); Mean Platelet Volume 8.3 fL (7.4-10.4); Platelet Count 208 10^3/uL (150-450); Red Blood Count 4.05 10^6 /uL (4.18-5.48); Red Cell Distribution Width 22 % (10-15); White Blood Count 18.2 10^3/uL (3.5-10.8)
[2021-10-15 04:10] LABS: Albumin 2.7 g/dL (3.2-5.2); Albumin/Globulin Ratio 1.4 (1-3); Calcium 7.4 mg/dL (8.6-10.3); Total Bilirubin 0.6 mg/dL (0.2-1.0); Total Protein 4.7 g/dL (6.4-8.9); eGFR CKD-EPI 99.6 (>60)
[2021-10-15 04:12] LABS: Potassium 5.4 mmol/L (3.5-5.0)
[2021-10-15] MEDS: Heparin 5000 UNITS/ML 1 mL VIAL SUBCUT SCH ×3 (06:07→21:30)
[2021-10-15 07:10] LABS: Magnesium 1.5 mg/dL (1.9-2.7)
[2021-10-15] MEDS: Albuterol/Ipratropium NEB.SOL (2.5/0.5 MG) 3 ML NEB.SOLN INH SCH ×3 (07:12→21:44)
[2021-10-15] MEDS ORDERED: Magnesium Sulf 4 GM/100 ML IV 4,000 MG/100 ML BAG IVPB ONE (08:06)
[2021-10-15 08:27] LABS: Phosphorus 3.7 mg/dL (2.5-5.0)
[2021-10-15] MEDS: Pantoprazole VIAL 40 MG VIAL IV SCH (08:37)
[2021-10-15] MEDS: Chlorhexidine MOUTHWASH 0.12% 15 ML UDC SWISH SPIT SCH ×3 (08:37→21:30)
[2021-10-15] MEDS: Multivitamins ADULT w/MIN LIQ 15 ML UDC PO SCH (08:38)
[2021-10-15] MEDS: Saline FLUSH-CENTRAL 10 ML SYRINGE CENT\\PICC SCH ×2 (08:39→20:32)
[2021-10-15 08:55] LABS: PCO2 Arterial 46 mmHg (35-45); PO2 Arterial 76 mmHg (80-100)
[2021-10-15] MEDS: Anidulafungin 100 MG in NS 0.9% 100 ml BAG 100 ML IVPB SCH (09:15)
[2021-10-15] MEDS ORDERED: Furosemide 40 mg/4 ml IV VIAL IV ONE (09:35)
[2021-10-15] MEDS: Polyethylene Glycol 3350 17 GM PACKET PO SCH (10:37)
[2021-10-15] MEDS ORDERED: fentaNYL 100 mcg/2 ml 50 MCG/ML VIAL IV SLOW PU ONE (14:23)
[2021-10-15] MEDS ORDERED: Furosemide 40 mg/4 ml IV VIAL IV SLOW PU ONE (18:12)
[2021-10-15 22:35] LABS: Calcium 7.9 mg/dL (8.6-10.3); Potassium 3.6 mmol/L (3.5-5.0); eGFR CKD-EPI 91.7 (>60)
[2021-10-16 04:33] LABS: Hematocrit 26 % (42-52); Hemoglobin 8.3 g/dL (14.0-18.0); Mean Corpuscular HGB Conc 32 g/dL (31-36); Mean Corpuscular Hemoglobin 25 pg (27-31); Mean Corpuscular Volume 78 fL (80-94); Mean Platelet Volume 8.7 fL (7.4-10.4); Platelet Count 173 10^3/uL (150-450); Red Blood Count 3.31 10^6 /uL (4.18-5.48); Red Cell Distribution Width 21 % (10-15); White Blood Count 13.8 10^3/uL (3.5-10.8)
[2021-10-16 04:59] LABS: Calcium 7.8 mg/dL (8.6-10.3); Phosphorus 3.5 mg/dL (2.5-5.0); Potassium 3.7 mmol/L (3.5-5.0); eGFR CKD-EPI 87.2 (>60)
[2021-10-16 05:26] LABS: Basophilic Stippling 1+; Microcytosis 1+
[2021-10-16 05:27] LABS: RBC Morphology Normal (Normal); Smudge Cells Present
[2021-10-16 05:28] LABS: ABS Eosinophils 0.1 10^3/ul (0-0.6); ABS Lymphocytes 0.9 10^3/ul (1.0-4.8); ABS Monocytes 0.7 10^3/ul (0-0.8); Eosinophil % 0.6 %; Lymphocyte % 6.8 %
[2021-10-16] MEDS: Heparin 5000 UNITS/ML 1 mL VIAL SUBCUT SCH ×3 (06:01→21:11)
[2021-10-16] MEDS: Acetaminophen IV 1 GM/100ML 100 ML IV PRN ×3 (06:01→20:24)
[2021-10-16] MEDS: Propofol 10 mg/ml 100 ML BTL 100 ML IV SCH ×3 (06:01→23:55)
[2021-10-16] MEDS: Albuterol/Ipratropium NEB.SOL (2.5/0.5 MG) 3 ML NEB.SOLN INH SCH ×2 (07:23→19:09)
[2021-10-16] MEDS ORDERED: Potassium Chloride LIQUID 20 MEQ/15 ML LIQUID PO ONE (07:59)
[2021-10-16] MEDS: Chlorhexidine MOUTHWASH 0.12% 15 ML UDC SWISH SPIT SCH ×3 (08:28→20:24)
[2021-10-16] MEDS: Multivitamins ADULT w/MIN LIQ 15 ML UDC PO SCH (08:28)
[2021-10-16] MEDS: Pantoprazole VIAL 40 MG VIAL IV SCH (08:28)
[2021-10-16] MEDS: Polyethylene Glycol 3350 17 GM PACKET PO SCH (08:29)
[2021-10-16] MEDS: Saline FLUSH-CENTRAL 10 ML SYRINGE CENT\\PICC SCH ×2 (08:29→20:29)
[2021-10-16] MEDS: Anidulafungin 100 MG in NS 0.9% 100 ml BAG 100 ML IVPB SCH (08:29)
[2021-10-16] MEDS: fentaNYL 100 mcg/2 ml 50 MCG/ML VIAL IV SLOW PU PRN ×2 (09:35→17:59)
[2021-10-17] MEDS: Acetaminophen IV 1 GM/100ML 100 ML IV PRN ×3 (01:32→21:58)
[2021-10-17] MEDS: fentaNYL 100 mcg/2 ml 50 MCG/ML VIAL IV SLOW PU PRN ×3 (04:14→16:27)
[2021-10-17] MEDS: Propofol 10 mg/ml 100 ML BTL 100 ML IV SCH ×4 (04:38→22:38)
[2021-10-17] MEDS: Heparin 5000 UNITS/ML 1 mL VIAL SUBCUT SCH ×3 (04:57→21:45)
[2021-10-17 05:01] LABS: ABS Basophils 0.1 10^3/ul (0-0.2); ABS Eosinophils 0.2 10^3/ul (0-0.6); ABS Lymphocytes 1.3 10^3/ul (1.0-4.8); ABS Monocytes 0.7 10^3/ul (0-0.8); ABS Neutrophils 10.2 10^3/ul (1.5-7.7); Eosinophil % 1.4 %; Hematocrit 25 % (42-52); Hemoglobin 7.8 g/dL (14.0-18.0); Mean Corpuscular HGB Conc 31 g/dL (31-36); Mean Corpuscular Hemoglobin 24 pg (27-31); Mean Corpuscular Volume 77 fL (80-94); Mean Platelet Volume 8.5 fL (7.4-10.4); Nucleated Red Blood Cells % 0.1; Platelet Count 168 10^3/uL (150-450); Red Blood Count 3.26 10^6 /uL (4.18-5.48); Red Cell Distribution Width 21 % (10-15); White Blood Count 12.4 10^3/uL (3.5-10.8)
[2021-10-17 06:10] LABS: Calcium 7.8 mg/dL (8.6-10.3); Magnesium 1.9 mg/dL (1.9-2.7); Potassium 3.7 mmol/L (3.5-5.0); eGFR CKD-EPI 98.5 (>60)
[2021-10-17] MEDS: Albuterol/Ipratropium NEB.SOL (2.5/0.5 MG) 3 ML NEB.SOLN INH SCH ×2 (07:15→19:26)
[2021-10-17] MEDS: Multivitamins ADULT w/MIN LIQ 15 ML UDC PO SCH (08:18)
[2021-10-17] MEDS: Pantoprazole VIAL 40 MG VIAL IV SCH (08:19)
[2021-10-17] MEDS: Chlorhexidine MOUTHWASH 0.12% 15 ML UDC SWISH SPIT SCH ×3 (08:19→21:45)
[2021-10-17] MEDS: Saline FLUSH-CENTRAL 10 ML SYRINGE CENT\\PICC SCH ×2 (08:31→21:51)
[2021-10-17] MEDS: Polyethylene Glycol 3350 17 GM PACKET PO SCH (08:34)
[2021-10-17] MEDS ORDERED: Furosemide 40 mg/4 ml IV VIAL IV SLOW PU ONE (08:38)
[2021-10-17] MEDS: Anidulafungin 100 MG in NS 0.9% 100 ml BAG 100 ML IVPB SCH (09:55)
[2021-10-17 14:28] LABS: Albumin 2.6 g/dL (3.2-5.2); Albumin/Globulin Ratio 1.2 (1-3); Direct Bilirubin 0.2 mg/dL (0.03-0.18); Globulin 2.1 g/dL (2-4); Indirect Bilirubin 0.3 mg/dL (0.3-1.0); Total Bilirubin 0.5 mg/dL (0.2-1.0); Total Protein 4.7 g/dL (6.4-8.9)
[2021-10-18] MEDS: Propofol 10 mg/ml 100 ML BTL 100 ML IV SCH ×2 (03:39→08:53)
[2021-10-18 05:18] LABS: ABS Eosinophils 0.1 10^3/ul (0-0.6); ABS Lymphocytes 1.3 10^3/ul (1.0-4.8); ABS Monocytes 0.5 10^3/ul (0-0.8); ABS Neutrophils 7.2 10^3/ul (1.5-7.7); Eosinophil % 0.9 %; Hematocrit 25 % (42-52); Hemoglobin 7.6 g/dL (14.0-18.0); Lymphocyte % 13.8 %; Mean Corpuscular HGB Conc 31 g/dL (31-36); Mean Corpuscular Hemoglobin 24 pg (27-31); Mean Corpuscular Volume 78 fL (80-94); Mean Platelet Volume 8.8 fL (7.4-10.4); Nucleated Red Blood Cells % 0.2; Platelet Count 206 10^3/uL (150-450); Red Blood Count 3.15 10^6 /uL (4.18-5.48); Red Cell Distribution Width 22 % (10-15); White Blood Count 9.1 10^3/uL (3.5-10.8)
[2021-10-18 05:27] LABS: Calcium 7.5 mg/dL (8.6-10.3); Magnesium 1.9 mg/dL (1.9-2.7); Potassium 3.9 mmol/L (3.5-5.0)
[2021-10-18 05:33] LABS: Phosphorus 3.2 mg/dL (2.5-5.0); eGFR CKD-EPI 96.4 (>60)
[2021-10-18] MEDS: Heparin 5000 UNITS/ML 1 mL VIAL SUBCUT SCH ×3 (05:48→22:35)
[2021-10-18] MEDS: Albuterol/Ipratropium NEB.SOL (2.5/0.5 MG) 3 ML NEB.SOLN INH SCH ×2 (07:05→19:11)
[2021-10-18] MEDS ORDERED: NS 0.9% 100 ml BAG 100 ML ONE (08:39)
[2021-10-18] MEDS: Multivitamins ADULT w/MIN LIQ 15 ML UDC PO SCH (08:54)
[2021-10-18] MEDS: Anidulafungin 100 MG in NS 0.9% 100 ml BAG 100 ML IVPB SCH (08:54)
[2021-10-18] MEDS: Chlorhexidine MOUTHWASH 0.12% 15 ML UDC SWISH SPIT SCH ×3 (08:55→22:34)
[2021-10-18] MEDS: Pantoprazole VIAL 40 MG VIAL IV SCH (08:55)
[2021-10-18] MEDS: Saline FLUSH-CENTRAL 10 ML SYRINGE CENT\\PICC SCH ×2 (09:27→22:34)
[2021-10-18] MEDS: Polyethylene Glycol 3350 17 GM PACKET PO SCH (09:28)
[2021-10-18] MEDS ORDERED: fentaNYL 100 mcg/2 ml 50 MCG/ML VIAL IV SLOW PU PRN (09:33)
[2021-10-18] MEDS: Midazolam 50 MG VIAL IV DRIP 50 ML IV SCH (13:26)
[2021-10-18] MEDS: Acetaminophen IV 1 GM/100ML 100 ML IV PRN (14:06)
[2021-10-18] MEDS: fentaNYL 100 mcg/2 ml 50 MCG/ML VIAL IV SLOW PU PRN ×2 (14:31→20:28)
[2021-10-18 19:21] LABS: Urine Appearance Clear; Urine Bilirubin Negative (Negative); Urine Blood Negative (Negative); Urine Color Yellow; Urine Glucose 3+(>=500 mg/dL) (Negative); Urine Ketones Negative (Negative); Urine Nitrite Negative (Negative); Urine Protein Negative (Negative); Urine Urobilinogen Negative (Negative)
[2021-10-19] MEDS: Midazolam 50 MG VIAL IV DRIP 50 ML IV SCH ×2 (03:34→22:45)
[2021-10-19 04:45] LABS: ABS Basophils 0.1 10^3/ul (0-0.2); ABS Eosinophils 0.2 10^3/ul (0-0.6); ABS Lymphocytes 1.3 10^3/ul (1.0-4.8); ABS Monocytes 0.5 10^3/ul (0-0.8); ABS Neutrophils 7.6 10^3/ul (1.5-7.7); Eosinophil % 1.6 %; Hematocrit 27 % (42-52); Hemoglobin 8.3 g/dL (14.0-18.0); Lymphocyte % 13.1 %; Mean Corpuscular HGB Conc 31 g/dL (31-36); Mean Corpuscular Hemoglobin 24 pg (27-31); Mean Corpuscular Volume 78 fL (80-94); Mean Platelet Volume 8.3 fL (7.4-10.4); Nucleated Red Blood Cells % 0.2; Platelet Count 225 10^3/uL (150-450); Red Blood Count 3.43 10^6 /uL (4.18-5.48); Red Cell Distribution Width 22 % (10-15); White Blood Count 9.6 10^3/uL (3.5-10.8)
[2021-10-19] MEDS: Acetaminophen IV 1 GM/100ML 100 ML IV PRN (05:00)
[2021-10-19] MEDS: fentaNYL 100 mcg/2 ml 50 MCG/ML VIAL IV SLOW PU PRN ×2 (05:00→15:03)
[2021-10-19 05:27] LABS: Magnesium 1.9 mg/dL (1.9-2.7); Phosphorus 3.3 mg/dL (2.5-5.0); Potassium 4.3 mmol/L (3.5-5.0)
[2021-10-19] MEDS: Heparin 5000 UNITS/ML 1 mL VIAL SUBCUT SCH ×3 (07:34→22:46)
[2021-10-19] MEDS: Saline FLUSH-CENTRAL 10 ML SYRINGE CENT\\PICC SCH ×2 (07:39→22:40)
[2021-10-19] MEDS: Chlorhexidine MOUTHWASH 0.12% 15 ML UDC SWISH SPIT SCH ×3 (08:19→22:46)
[2021-10-19] MEDS: Multivitamins ADULT w/MIN LIQ 15 ML UDC PO SCH (08:20)
[2021-10-19] MEDS: Pantoprazole VIAL 40 MG VIAL IV SCH (08:20)
[2021-10-19] MEDS: Polyethylene Glycol 3350 17 GM PACKET PO SCH (08:24)
[2021-10-19] MEDS: Anidulafungin 100 MG in NS 0.9% 100 ml BAG 100 ML IVPB SCH (08:24)
[2021-10-19] MEDS ORDERED: Perflutren Lipid Microsphere 3 ML VIAL ONE (09:51)
[2021-10-20] MEDS: Metoprolol Tartrate 5 mg VIAL 5 ml VIAL (1 mg/ml) IV PRN ×2 (01:08→05:06)
[2021-10-20] MEDS: Heparin 5000 UNITS/ML 1 mL VIAL SUBCUT SCH (05:07)
[2021-10-20 05:20] LABS: ABS Basophils 0.1 10^3/ul (0-0.2); ABS Eosinophils 0.1 10^3/ul (0-0.6); ABS Lymphocytes 1.2 10^3/ul (1.0-4.8); ABS Monocytes 0.5 10^3/ul (0-0.8); ABS Neutrophils 6.2 10^3/ul (1.5-7.7); Eosinophil % 1.5 %; Hematocrit 25 % (42-52); Hemoglobin 7.9 g/dL (14.0-18.0); Lymphocyte % 14.4 %; Mean Corpuscular HGB Conc 31 g/dL (31-36); Mean Corpuscular Hemoglobin 24 pg (27-31); Mean Corpuscular Volume 77 fL (80-94); Mean Platelet Volume 8.3 fL (7.4-10.4); Nucleated Red Blood Cells % 0.3; Platelet Count 227 10^3/uL (150-450); Red Blood Count 3.24 10^6 /uL (4.18-5.48); Red Cell Distribution Width 22 % (10-15); White Blood Count 8.1 10^3/uL (3.5-10.8)
[2021-10-20 06:06] LABS: Calcium 8.3 mg/dL (8.6-10.3); Magnesium 1.9 mg/dL (1.9-2.7); Phosphorus 3.1 mg/dL (2.5-5.0); Potassium 4.2 mmol/L (3.5-5.0); eGFR CKD-EPI 102.5 (>60)
[2021-10-20] MEDS ORDERED: NS 0.9% 100 ml BAG 100 ML ONE (08:16)
[2021-10-20] MEDS: Anidulafungin 100 MG in NS 0.9% 100 ml BAG 100 ML IVPB SCH (08:25)
[2021-10-20] MEDS: Polyethylene Glycol 3350 17 GM PACKET PO SCH (08:29)
[2021-10-20] MEDS: Chlorhexidine MOUTHWASH 0.12% 15 ML UDC SWISH SPIT SCH ×3 (08:31→20:53)
[2021-10-20] MEDS: Pantoprazole VIAL 40 MG VIAL IV SCH (08:32)
[2021-10-20] MEDS: Multivitamins ADULT w/MIN LIQ 15 ML UDC PO SCH (09:14)
[2021-10-20] MEDS: Saline FLUSH-CENTRAL 10 ML SYRINGE CENT\\PICC SCH ×2 (10:16→20:42)
[2021-10-20] MEDS: Enoxaparin 40 MG/0.4 ML SYR SUBCUT SCH (12:09)
[2021-10-20] MEDS: Dexmedetomidine 1,000 MCG in NS 0.9% 250 ml 240 ML IV SCH (12:40)
[2021-10-21 06:02] LABS: ABS Eosinophils 0.1 10^3/ul (0-0.6); ABS Lymphocytes 1.1 10^3/ul (1.0-4.8); ABS Monocytes 0.4 10^3/ul (0-0.8); ABS Neutrophils 4.3 10^3/ul (1.5-7.7); ABS Nucleated RBC 0.1 10^3/ul; Hematocrit 27 % (42-52); Hemoglobin 8.5 g/dL (14.0-18.0); Lymphocyte % 18.4 %; Mean Corpuscular HGB Conc 32 g/dL (31-36); Mean Corpuscular Hemoglobin 25 pg (27-31); Mean Corpuscular Volume 78 fL (80-94); Mean Platelet Volume 8.6 fL (7.4-10.4); Nucleated Red Blood Cells % 1.6; Platelet Count 229 10^3/uL (150-450); Red Blood Count 3.46 10^6 /uL (4.18-5.48); Red Cell Distribution Width 22 % (10-15); White Blood Count 5.8 10^3/uL (3.5-10.8)
[2021-10-21 06:30] LABS: Calcium 8.3 mg/dL (8.6-10.3); Magnesium 1.9 mg/dL (1.9-2.7); Phosphorus 3.5 mg/dL (2.5-5.0); Potassium 4.6 mmol/L (3.5-5.0); eGFR CKD-EPI 102.9 (>60)
[2021-10-21] MEDS: Multivitamins ADULT w/MIN LIQ 15 ML UDC PO SCH (08:06)
[2021-10-21] MEDS: Chlorhexidine MOUTHWASH 0.12% 15 ML UDC SWISH SPIT SCH ×3 (08:06→20:18)
[2021-10-21] MEDS: Pantoprazole VIAL 40 MG VIAL IV SCH (08:06)
[2021-10-21] MEDS: Saline FLUSH-CENTRAL 10 ML SYRINGE CENT\\PICC SCH ×2 (08:07→20:19)
[2021-10-21] MEDS: Anidulafungin 100 MG in NS 0.9% 100 ml BAG 100 ML IVPB SCH (11:08)
[2021-10-21] MEDS: Polyethylene Glycol 3350 17 GM PACKET PO SCH (11:08)
[2021-10-21] MEDS: Enoxaparin 40 MG/0.4 ML SYR SUBCUT SCH (12:41)
[2021-10-21] MEDS: Dexmedetomidine 1,000 MCG in NS 0.9% 250 ml 240 ML IV SCH (14:18)
[2021-10-21 19:54] LABS: Fungitell Qualitative Result Negative (Negative); Fungitell Quantitative Value <31 pg/mL (<60 pg/mL)
[2021-10-21 20:49] LABS: Anaplasma phagocytophilum Negative (Negative); B. miyamotoi PCR, B Negative (Negative); Babesia divergens/MO-1 Negative (Negative); Babesia ducani Negative (Negative); Ehrlichia chaffeensis Negative (Negative); Ehrlichia ewingii/canis Negative (Negative); Ehrlichia muris eauclairensis Negative (Negative)
[2021-10-22] MEDS: fentaNYL 100 mcg/2 ml 50 MCG/ML VIAL IV SLOW PU PRN (03:24)
[2021-10-22 04:59] LABS: ABS Eosinophils 0.1 10^3/ul (0-0.6); ABS Lymphocytes 1.1 10^3/ul (1.0-4.8); ABS Monocytes 0.4 10^3/ul (0-0.8); ABS Neutrophils 6.1 10^3/ul (1.5-7.7); ABS Nucleated RBC 0.1 10^3/ul; Eosinophil % 1.1 %; Hematocrit 25 % (42-52); Hemoglobin 7.6 g/dL (14.0-18.0); Lymphocyte % 14.3 %; Mean Corpuscular HGB Conc 31 g/dL (31-36); Mean Corpuscular Hemoglobin 24 pg (27-31); Mean Corpuscular Volume 79 fL (80-94); Mean Platelet Volume 8.9 fL (7.4-10.4); Nucleated Red Blood Cells % 0.6; Platelet Count 251 10^3/uL (150-450); Red Blood Count 3.15 10^6 /uL (4.18-5.48); Red Cell Distribution Width 23 % (10-15); White Blood Count 7.7 10^3/uL (3.5-10.8)
[2021-10-22 05:18] LABS: Calcium 8.2 mg/dL (8.6-10.3); Magnesium 1.9 mg/dL (1.9-2.7); Phosphorus 3.9 mg/dL (2.5-5.0); Potassium 4.6 mmol/L (3.5-5.0)
[2021-10-22] MEDS: Pantoprazole VIAL 40 MG VIAL IV SCH (08:26)
[2021-10-22] MEDS: Multivitamins ADULT w/MIN LIQ 15 ML UDC PO SCH (08:26)
[2021-10-22] MEDS: Chlorhexidine MOUTHWASH 0.12% 15 ML UDC SWISH SPIT SCH ×3 (08:26→20:12)
[2021-10-22] MEDS: Saline FLUSH-CENTRAL 10 ML SYRINGE CENT\\PICC SCH ×2 (09:17→20:13)
[2021-10-22] MEDS: Polyethylene Glycol 3350 17 GM PACKET PO SCH (09:18)
[2021-10-22] MEDS: Enoxaparin 40 MG/0.4 ML SYR SUBCUT SCH (14:59)
[2021-10-22] MEDS: Dexmedetomidine 1,000 MCG in NS 0.9% 250 ml 240 ML IV SCH (18:06)
[2021-10-23 05:27] LABS: Albumin 2.5 g/dL (3.2-5.2); Calcium 8.3 mg/dL (8.6-10.3); Globulin 2.4 g/dL (2-4); Magnesium 1.8 mg/dL (1.9-2.7); Potassium 4.2 mmol/L (3.5-5.0); Total Bilirubin 0.4 mg/dL (0.2-1.0); Total Protein 4.9 g/dL (6.4-8.9); eGFR CKD-EPI 105.2 (>60)
[2021-10-23 05:30] LABS: Activated Partial Thrombo Time 24.2 seconds (26.0-38.0); INR 1.16 (0.86-1.15)
[2021-10-23] MEDS ORDERED: Magnesium Sulfate 2 gm BAG 2 GM/50 ML BAG IVPB ONE (07:02)
[2021-10-23] MEDS: Multivitamins ADULT w/MIN LIQ 15 ML UDC PO SCH (07:48)
[2021-10-23] MEDS: Chlorhexidine MOUTHWASH 0.12% 15 ML UDC SWISH SPIT SCH ×3 (07:48→20:08)
[2021-10-23] MEDS: Pantoprazole VIAL 40 MG VIAL IV SCH (07:48)
[2021-10-23] MEDS: Saline FLUSH-CENTRAL 10 ML SYRINGE CENT\\PICC SCH ×2 (09:14→20:09)
[2021-10-23] MEDS: Polyethylene Glycol 3350 17 GM PACKET PO SCH (09:14)
[2021-10-23] MEDS: fentaNYL 100 mcg/2 ml 50 MCG/ML VIAL IV SLOW PU PRN (10:49)
[2021-10-23] MEDS ORDERED: Midazolam 5 mg/5 ml VIAL 1 mg/ml 5 ml VIAL (5 mg) ONE (16:18)
[2021-10-23] MEDS ORDERED: fentaNYL 100 mcg/2 ml 50 MCG/ML VIAL ONE (16:18)
[2021-10-23] MEDS ORDERED: Propofol 10 MG/ML 20 ML BTL ONE (16:19)
[2021-10-23] MEDS ORDERED: Rocuronium 50 mg VIAL 10 mg/ml 5 ml VIAL (50 mg) ONE (16:19)
[2021-10-23] MEDS ORDERED: Lidocaine 1% w EPI 1:100,000 MDV 20 ML VIAL ONE (16:25)
[2021-10-24] MEDS: Dexmedetomidine 1,000 MCG in NS 0.9% 250 ml 240 ML IV SCH ×2 (02:47→21:59)
[2021-10-24 04:25] LABS: Hematocrit 26 % (42-52); Mean Corpuscular HGB Conc 31 g/dL (31-36); Mean Corpuscular Hemoglobin 24 pg (27-31); Mean Corpuscular Volume 78 fL (80-94); Mean Platelet Volume 9.2 fL (7.4-10.4); Platelet Count 303 10^3/uL (150-450); Red Cell Distribution Width 23 % (10-15); White Blood Count 8.6 10^3/uL (3.5-10.8)
[2021-10-24 04:32] LABS: ABS Monocytes 0.5 10^3/ul (0-0.8); Eosinophil % 0.5 %; Lymphocyte % 11.8 %; Nucleated Red Blood Cells % 0.2
[2021-10-24 04:57] LABS: Calcium 7.9 mg/dL (8.6-10.3); Magnesium 1.7 mg/dL (1.9-2.7); Potassium 4.2 mmol/L (3.5-5.0); eGFR CKD-EPI 104.7 (>60)
[2021-10-24] MEDS ORDERED: Magnesium Sulfate 2 gm BAG 2 GM/50 ML BAG IVPB ONE (05:33)
[2021-10-24] MEDS: Pantoprazole VIAL 40 MG VIAL IV SCH (08:56)
[2021-10-24] MEDS: Multivitamins ADULT w/MIN LIQ 15 ML UDC NG TUBE SCH (08:57)
[2021-10-24] MEDS: Polyethylene Glycol 3350 17 GM PACKET NG TUBE SCH (08:57)
[2021-10-24] MEDS: Saline FLUSH-CENTRAL 10 ML SYRINGE CENT\\PICC SCH ×2 (09:52→19:26)
[2021-10-24 09:59] LABS: C Reactive Protein 85.46 mg/L (<8.01)
[2021-10-24] MEDS: Chlorhexidine MOUTHWASH 0.12% 15 ML UDC SWISH SPIT SCH ×3 (10:07→19:26)
[2021-10-24] MEDS: Enoxaparin 40 MG/0.4 ML SYR SUBCUT SCH (10:48)
[2021-10-25 04:13] LABS: ABS Basophils 0.1 10^3/ul (0-0.2); ABS Eosinophils 0.1 10^3/ul (0-0.6); ABS Lymphocytes 1.2 10^3/ul (1.0-4.8); ABS Monocytes 0.5 10^3/ul (0-0.8); ABS Neutrophils 5.6 10^3/ul (1.5-7.7); Eosinophil % 0.8 %; Hematocrit 27 % (42-52); Hemoglobin 7.9 g/dL (14.0-18.0); Lymphocyte % 15.7 %; Mean Corpuscular HGB Conc 30 g/dL (31-36); Mean Corpuscular Hemoglobin 23 pg (27-31); Mean Corpuscular Volume 77 fL (80-94); Mean Platelet Volume 8.7 fL (7.4-10.4); Nucleated Red Blood Cells % 0.3; Platelet Count 352 10^3/uL (150-450); Red Blood Count 3.45 10^6 /uL (4.18-5.48); Red Cell Distribution Width 23 % (10-15); White Blood Count 7.4 10^3/uL (3.5-10.8)
[2021-10-25 04:48] LABS: Magnesium 1.8 mg/dL (1.9-2.7); Potassium 3.9 mmol/L (3.5-5.0); eGFR CKD-EPI 102.9 (>60)
[2021-10-25] MEDS ORDERED: Magnesium Sulfate 2 gm BAG 2 GM/50 ML BAG IVPB ONE (05:49)
[2021-10-25] MEDS: Saline FLUSH-CENTRAL 10 ML SYRINGE CENT\\PICC SCH ×2 (10:03→21:21)
[2021-10-25] MEDS: Chlorhexidine MOUTHWASH 0.12% 15 ML UDC SWISH SPIT SCH ×3 (10:03→21:09)
[2021-10-25] MEDS: Enoxaparin 40 MG/0.4 ML SYR SUBCUT SCH (10:03)
[2021-10-25] MEDS: Multivitamins ADULT w/MIN LIQ 15 ML UDC NG TUBE SCH (10:03)
[2021-10-25] MEDS: fentaNYL 100 mcg/2 ml 50 MCG/ML VIAL IV SLOW PU PRN ×2 (10:04→18:11)
[2021-10-25] MEDS: Pantoprazole VIAL 40 MG VIAL IV SCH (10:06)
[2021-10-25] MEDS: Polyethylene Glycol 3350 17 GM PACKET NG TUBE SCH (10:06)
[2021-10-25] MEDS: Metoprolol Tartrate 5 mg VIAL 5 ml VIAL (1 mg/ml) IV PRN (19:20)
[2021-10-25] MEDS: Dexmedetomidine 1,000 MCG in NS 0.9% 250 ml 240 ML IV SCH (20:06)
[2021-10-26] MEDS: fentaNYL 100 mcg/2 ml 50 MCG/ML VIAL IV SLOW PU PRN ×3 (00:52→23:29)
[2021-10-26 05:32] LABS: ABS Eosinophils 0.1 10^3/ul (0-0.6); ABS Lymphocytes 0.9 10^3/ul (1.0-4.8); ABS Monocytes 0.5 10^3/ul (0-0.8); ABS Neutrophils 5.8 10^3/ul (1.5-7.7); Eosinophil % 1.5 %; Hematocrit 24 % (42-52); Hemoglobin 7.6 g/dL (14.0-18.0); Lymphocyte % 12.7 %; Mean Corpuscular HGB Conc 31 g/dL (31-36); Mean Corpuscular Hemoglobin 24 pg (27-31); Mean Corpuscular Volume 77 fL (80-94); Mean Platelet Volume 8.5 fL (7.4-10.4); Nucleated Red Blood Cells % 0.3; Platelet Count 345 10^3/uL (150-450); Red Blood Count 3.16 10^6 /uL (4.18-5.48); Red Cell Distribution Width 22 % (10-15); White Blood Count 7.3 10^3/uL (3.5-10.8)
[2021-10-26] MEDS: Metoprolol Tartrate 5 mg VIAL 5 ml VIAL (1 mg/ml) IV PRN ×2 (05:33→19:06)
[2021-10-26 06:02] LABS: Calcium 7.8 mg/dL (8.6-10.3); Magnesium 1.7 mg/dL (1.9-2.7); Potassium 3.9 mmol/L (3.5-5.0); eGFR CKD-EPI 108.3 (>60)
[2021-10-26] MEDS ORDERED: Magnesium Sulfate IV 3 GM in NS 0.9% 100 ml BAG 100 ML IVPB ONE (07:09)
[2021-10-26] MEDS ORDERED: Magnesium Sulfate 2 GM IV (Premix) IVPB ONE (08:00)
[2021-10-26] MEDS: Pantoprazole VIAL 40 MG VIAL IV SCH (08:16)
[2021-10-26] MEDS: Dexmedetomidine 1,000 MCG in NS 0.9% 250 ml 240 ML IV SCH (08:17)
[2021-10-26] MEDS: Saline FLUSH-CENTRAL 10 ML SYRINGE CENT\\PICC SCH ×2 (08:19→22:26)
[2021-10-26] MEDS: Multivitamins ADULT w/MIN LIQ 15 ML UDC NG TUBE SCH (08:22)
[2021-10-26] MEDS: Chlorhexidine MOUTHWASH 0.12% 15 ML UDC SWISH SPIT SCH ×3 (08:22→19:51)
[2021-10-26] MEDS: Polyethylene Glycol 3350 17 GM PACKET NG TUBE SCH (08:23)
[2021-10-26] MEDS ORDERED: Magnesium Sulfate 1 GM IV 1 GM/100 ML BAG IV ONE (09:00)
[2021-10-26] MEDS: Enoxaparin 40 MG/0.4 ML SYR SUBCUT SCH (12:35)
[2021-10-26] MEDS: Albuterol/Ipratropium NEB.SOL (2.5/0.5 MG) 3 ML NEB.SOLN INH PRN (19:33)
[2021-10-27] MEDS: fentaNYL 100 mcg/2 ml 50 MCG/ML VIAL IV SLOW PU PRN (04:38)
[2021-10-27 04:50] LABS: ABS Basophils 0.1 10^3/ul (0-0.2); ABS Eosinophils 0.1 10^3/ul (0-0.6); ABS Monocytes 0.7 10^3/ul (0-0.8); ABS Neutrophils 7.5 10^3/ul (1.5-7.7); Eosinophil % 1.2 %; Hematocrit 26 % (42-52); Hemoglobin 7.7 g/dL (14.0-18.0); Lymphocyte % 10.7 %; Mean Corpuscular HGB Conc 30 g/dL (31-36); Mean Corpuscular Hemoglobin 23 pg (27-31); Mean Corpuscular Volume 77 fL (80-94); Mean Platelet Volume 8.4 fL (7.4-10.4); Nucleated Red Blood Cells % 0.4; Platelet Count 352 10^3/uL (150-450); Red Blood Count 3.32 10^6 /uL (4.18-5.48); Red Cell Distribution Width 23 % (10-15); White Blood Count 9.4 10^3/uL (3.5-10.8)
[2021-10-27 05:35] LABS: Calcium 7.7 mg/dL (8.6-10.3); Magnesium 1.8 mg/dL (1.9-2.7); Phosphorus 3.2 mg/dL (2.5-5.0); Potassium 4.1 mmol/L (3.5-5.0); eGFR CKD-EPI 105.7 (>60)
[2021-10-27] MEDS: Dexmedetomidine 1,000 MCG in NS 0.9% 250 ml 240 ML IV SCH (05:56)
[2021-10-27] MEDS ORDERED: Magnesium Sulfate 2 gm BAG 2 GM/50 ML BAG IVPB ONE (07:34)
[2021-10-27] MEDS: Multivitamins ADULT w/MIN LIQ 15 ML UDC NG TUBE SCH (08:04)
[2021-10-27] MEDS: Chlorhexidine MOUTHWASH 0.12% 15 ML UDC SWISH SPIT SCH ×3 (08:04→20:15)
[2021-10-27] MEDS: Pantoprazole VIAL 40 MG VIAL IV SCH (08:04)
[2021-10-27] MEDS: Saline FLUSH-CENTRAL 10 ML SYRINGE CENT\\PICC SCH ×2 (08:06→20:17)
[2021-10-27] MEDS: Polyethylene Glycol 3350 17 GM PACKET NG TUBE SCH (08:06)
[2021-10-27] MEDS: Enoxaparin 40 MG/0.4 ML SYR SUBCUT SCH (10:36)
[2021-10-28 04:51] LABS: ABS Basophils 0.1 10^3/ul (0-0.2); ABS Eosinophils 0.1 10^3/ul (0-0.6); ABS Lymphocytes 0.9 10^3/ul (1.0-4.8); ABS Monocytes 0.8 10^3/ul (0-0.8); ABS Neutrophils 6.9 10^3/ul (1.5-7.7); Hematocrit 23 % (42-52); Hemoglobin 7.1 g/dL (14.0-18.0); Lymphocyte % 10.6 %; Mean Corpuscular HGB Conc 31 g/dL (31-36); Mean Corpuscular Hemoglobin 24 pg (27-31); Mean Corpuscular Volume 76 fL (80-94); Mean Platelet Volume 8.5 fL (7.4-10.4); Platelet Count 384 10^3/uL (150-450); Red Blood Count 3.02 10^6 /uL (4.18-5.48); Red Cell Distribution Width 22 % (10-15); White Blood Count 8.7 10^3/uL (3.5-10.8)
[2021-10-28 05:19] LABS: Calcium 7.6 mg/dL (8.6-10.3); eGFR CKD-EPI 107.8 (>60)
[2021-10-28 08:09] LABS: Magnesium 1.7 mg/dL (1.9-2.7); Phosphorus 2.8 mg/dL (2.5-5.0)
[2021-10-28] MEDS: Multivitamins ADULT w/MIN LIQ 15 ML UDC NG TUBE SCH (09:02)
[2021-10-28] MEDS: Polyethylene Glycol 3350 17 GM PACKET NG TUBE SCH (09:02)
[2021-10-28] MEDS: Chlorhexidine MOUTHWASH 0.12% 15 ML UDC SWISH SPIT SCH ×3 (09:02→20:38)
[2021-10-28] MEDS: Pantoprazole VIAL 40 MG VIAL IV SCH (09:03)
[2021-10-28] MEDS: Saline FLUSH-CENTRAL 10 ML SYRINGE CENT\\PICC SCH ×2 (09:05→20:38)
[2021-10-28] MEDS ORDERED: Magnesium Sulfate 2 gm BAG 2 GM/50 ML BAG IVPB ONE (09:43)
[2021-10-28] MEDS: Enoxaparin 40 MG/0.4 ML SYR SUBCUT SCH (10:17)
[2021-10-28] MEDS: Metoprolol Tartrate 5 mg VIAL 5 ml VIAL (1 mg/ml) IV PRN (13:41)
[2021-10-28] MEDS ORDERED: Furosemide 40 mg/4 ml IV VIAL IV SLOW PU ONE (13:54)
[2021-10-28] MEDS: oxyCODONE 5 mg/5 ml ORAL.SOLN UDC PO PRN ×2 (14:06→18:17)
[2021-10-28] MEDS ORDERED: Lorazepam PYXIS KEY PRN (14:39)
[2021-10-28] MEDS ORDERED: Albumin Human 25% 25 GM/100 ML BTL IV ONE (21:34)
[2021-10-28 22:00] LABS: ABS Basophils 0.1 10^3/ul (0-0.2); ABS Eosinophils 0.1 10^3/ul (0-0.6); ABS Neutrophils 7.7 10^3/ul (1.5-7.7); Eosinophil % 0.9 %; Hematocrit 22 % (42-52); Hemoglobin 6.7 g/dL (14.0-18.0); Mean Corpuscular HGB Conc 31 g/dL (31-36); Mean Corpuscular Hemoglobin 24 pg (27-31); Mean Corpuscular Volume 75 fL (80-94); Nucleated Red Blood Cells % 0.1; Platelet Count 395 10^3/uL (150-450); Red Blood Count 2.85 10^6 /uL (4.18-5.48); Red Cell Distribution Width 22 % (10-15); White Blood Count 9.8 10^3/uL (3.5-10.8)
[2021-10-28] MEDS ORDERED: Lactated Ringers 1000 ml BAG 500 ML IV SCH (22:00)
[2021-10-29] MEDS: LORazepam 2 mg VIAL 1 ml IV PUSH PRN ×3 (01:38→18:24)
[2021-10-29] MEDS: oxyCODONE 5 mg/5 ml ORAL.SOLN UDC PO PRN (02:25)
[2021-10-29 05:30] LABS: ABS Eosinophils 0.1 10^3/ul (0-0.6); ABS Lymphocytes 0.7 10^3/ul (1.0-4.8); ABS Monocytes 0.9 10^3/ul (0-0.8); ABS Neutrophils 8.1 10^3/ul (1.5-7.7); Eosinophil % 0.8 %; Hematocrit 24 % (42-52); Hemoglobin 7.5 g/dL (14.0-18.0); Mean Corpuscular HGB Conc 32 g/dL (31-36); Mean Corpuscular Hemoglobin 25 pg (27-31); Mean Corpuscular Volume 78 fL (80-94); Mean Platelet Volume 8.2 fL (7.4-10.4); Platelet Count 385 10^3/uL (150-450); Red Blood Count 3.02 10^6 /uL (4.18-5.48); Red Cell Distribution Width 23 % (10-15); White Blood Count 9.8 10^3/uL (3.5-10.8)
[2021-10-29 06:04] LABS: Calcium 7.5 mg/dL (8.6-10.3); Magnesium 1.7 mg/dL (1.9-2.7); Potassium 4.1 mmol/L (3.5-5.0); eGFR CKD-EPI 107.3 (>60)
[2021-10-29] MEDS ORDERED: Magnesium Sulfate 2 gm BAG 2 GM/50 ML BAG IVPB ONE (07:09)
[2021-10-29] MEDS: Chlorhexidine MOUTHWASH 0.12% 15 ML UDC SWISH SPIT SCH ×3 (07:40→20:05)
[2021-10-29] MEDS: Multivitamins ADULT w/MIN LIQ 15 ML UDC NG TUBE SCH (07:40)
[2021-10-29] MEDS: Polyethylene Glycol 3350 17 GM PACKET NG TUBE SCH (07:41)
[2021-10-29] MEDS: Pantoprazole VIAL 40 MG VIAL IV SCH (07:41)
[2021-10-29] MEDS: Saline FLUSH-CENTRAL 10 ML SYRINGE CENT\\PICC SCH ×2 (07:43→20:35)
[2021-10-29] MEDS: Metoprolol Tartrate 5 mg VIAL 5 ml VIAL (1 mg/ml) IV PRN (08:04)
[2021-10-29] MEDS: Enoxaparin 40 MG/0.4 ML SYR SUBCUT SCH (10:32)
[2021-10-29 15:38] LABS: Hematocrit 26 % (42-52); Hemoglobin 7.9 g/dL (14.0-18.0)
[2021-10-29] MEDS ORDERED: oxyCODONE 5 mg/5 ml ORAL.SOLN UDC PO ONE (20:35)
[2021-10-30] MEDS ORDERED: fentaNYL 100 mcg/2 ml 50 MCG/ML VIAL ONE ×2 (01:30→13:17)
[2021-10-30] MEDS: fentaNYL 100 mcg/2 ml 50 MCG/ML VIAL IV SLOW PU PRN ×3 (01:33→19:46)
[2021-10-30] MEDS: oxyCODONE 5 mg/5 ml ORAL.SOLN UDC PO PRN ×3 (02:54→23:06)
[2021-10-30] MEDS: Saliva Substitute (NF) 1 SPRAY BTL MT PRN (02:56)
[2021-10-30 05:32] LABS: ABS Basophils 0.1 10^3/ul (0-0.2); ABS Eosinophils 0.1 10^3/ul (0-0.6); ABS Lymphocytes 0.8 10^3/ul (1.0-4.8); ABS Neutrophils 6.5 10^3/ul (1.5-7.7); Eosinophil % 1.5 %; Hematocrit 26 % (42-52); Lymphocyte % 9.8 %; Mean Corpuscular HGB Conc 31 g/dL (31-36); Mean Corpuscular Hemoglobin 24 pg (27-31); Mean Corpuscular Volume 78 fL (80-94); Mean Platelet Volume 7.9 fL (7.4-10.4); Nucleated Red Blood Cells % 0.1; Platelet Count 284 10^3/uL (150-450); Red Blood Count 3.31 10^6 /uL (4.18-5.48); Red Cell Distribution Width 23 % (10-15); White Blood Count 8.6 10^3/uL (3.5-10.8)
[2021-10-30 06:00] LABS: Calcium 7.7 mg/dL (8.6-10.3); Magnesium 1.7 mg/dL (1.9-2.7); Potassium 4.1 mmol/L (3.5-5.0); eGFR CKD-EPI 108.9 (>60)
[2021-10-30] MEDS ORDERED: Magnesium Sulfate 2 gm BAG 2 GM/50 ML BAG IVPB ONE (07:12)
[2021-10-30] MEDS: Multivitamins ADULT w/MIN LIQ 15 ML UDC NG TUBE SCH (08:44)
[2021-10-30] MEDS: Chlorhexidine MOUTHWASH 0.12% 15 ML UDC SWISH SPIT SCH ×3 (08:44→23:05)
[2021-10-30] MEDS: Pantoprazole VIAL 40 MG VIAL IV SCH (08:45)
[2021-10-30] MEDS: Saline FLUSH-CENTRAL 10 ML SYRINGE CENT\\PICC SCH ×2 (08:47→22:06)
[2021-10-30] MEDS: Polyethylene Glycol 3350 17 GM PACKET NG TUBE SCH (09:12)
[2021-10-30] MEDS: LORazepam 2 mg VIAL 1 ml IV PUSH PRN ×2 (09:16→19:40)
[2021-10-30] MEDS: Enoxaparin 40 MG/0.4 ML SYR SUBCUT SCH (11:36)
[2021-10-30] MEDS: Midazolam 2 mg/2 ml VIAL 1 mg/ml 2 ml VIAL (2 mg) ONE ×2 (13:25→13:59)
[2021-10-30] MEDS ORDERED: Midazolam 5 mg/5 ml VIAL 1 mg/ml 5 ml VIAL (5 mg) IV SLOW PU ONE (13:52)
[2021-10-30] MEDS ORDERED: fentaNYL 100 mcg/2 ml 50 MCG/ML VIAL IV SLOW PU ONE (13:53)
[2021-10-30] MEDS ORDERED: Midazolam 2 mg/2 ml VIAL 1 mg/ml 2 ml VIAL (2 mg) IV SLOW PU ONE (14:10)
[2021-10-30] MEDS: Metoprolol Tartrate 5 mg VIAL 5 ml VIAL (1 mg/ml) IV PRN (19:55)
[2021-10-30] MEDS: Acetaminophen IV 1 GM/100ML 100 ML IV PRN (20:21)
[2021-10-30] MEDS: Dextran 70/Hypromellose Tears Eye Drops 15 ml BTL (for Artificials Tears) BOTH EYES PRN (23:11)
[2021-10-31 04:28] LABS: ABS Eosinophils 0.1 10^3/ul (0-0.6); ABS Monocytes 0.9 10^3/ul (0-0.8); ABS Neutrophils 5.7 10^3/ul (1.5-7.7); Hematocrit 26 % (42-52); Hemoglobin 7.8 g/dL (14.0-18.0); Mean Corpuscular HGB Conc 30 g/dL (31-36); Mean Corpuscular Hemoglobin 24 pg (27-31); Mean Corpuscular Volume 78 fL (80-94); Mean Platelet Volume 7.7 fL (7.4-10.4); Nucleated Red Blood Cells % 0.1; Platelet Count 379 10^3/uL (150-450); Red Blood Count 3.29 10^6 /uL (4.18-5.48); Red Cell Distribution Width 23 % (10-15); White Blood Count 7.7 10^3/uL (3.5-10.8)
[2021-10-31 05:02] LABS: Calcium 7.8 mg/dL (8.6-10.3); Magnesium 1.8 mg/dL (1.9-2.7); Potassium 4.1 mmol/L (3.5-5.0); eGFR CKD-EPI 108.9 (>60)
[2021-10-31] MEDS: fentaNYL 100 mcg/2 ml 50 MCG/ML VIAL IV SLOW PU PRN ×3 (05:56→17:15)
[2021-10-31] MEDS ORDERED: Magnesium Sulfate 2 gm BAG 2 GM/50 ML BAG IVPB ONE (07:04)
[2021-10-31] MEDS: Multivitamins ADULT w/MIN LIQ 15 ML UDC NG TUBE SCH (08:18)
[2021-10-31] MEDS: Chlorhexidine MOUTHWASH 0.12% 15 ML UDC SWISH SPIT SCH ×3 (08:18→21:32)
[2021-10-31] MEDS: Pantoprazole VIAL 40 MG VIAL IV SCH (08:18)
[2021-10-31] MEDS: Saline FLUSH-CENTRAL 10 ML SYRINGE CENT\\PICC SCH ×2 (08:19→21:34)
[2021-10-31] MEDS: LORazepam 2 mg VIAL 1 ml IV PUSH PRN ×2 (08:41→16:26)
[2021-10-31] MEDS: Polyethylene Glycol 3350 17 GM PACKET NG TUBE SCH (09:12)
[2021-10-31] MEDS: Enoxaparin 40 MG/0.4 ML SYR SUBCUT SCH (11:17)
[2021-10-31] MEDS: Acetaminophen IV 1 GM/100ML 100 ML IV PRN ×2 (11:17→23:21)
[2021-10-31 15:00] LABS: Urine Appearance Clear; Urine Bilirubin Negative (Negative); Urine Blood Negative (Negative); Urine Color Yellow; Urine Glucose Negative (Negative); Urine Ketones Negative (Negative); Urine Nitrite Negative (Negative); Urine Protein Negative (Negative); Urine Specific Gravity 1.013 (1.002-1.030); Urine Urobilinogen Positive (Negative)
[2021-10-31] MEDS: Metoprolol Tartrate 5 mg VIAL 5 ml VIAL (1 mg/ml) IV PRN (16:47)
[2021-10-31] MEDS ORDERED: fentaNYL 100 mcg/2 ml 50 MCG/ML VIAL IV SLOW PU ONE (17:29)
[2021-10-31] MEDS ORDERED: Propofol 10 mg/ml 100 ML BTL 100 ML ONE (17:34)
[2021-10-31] MEDS: Albuterol/Ipratropium NEB.SOL (2.5/0.5 MG) 3 ML NEB.SOLN INH PRN (17:41)
[2021-10-31] MEDS: Propofol 10 mg/ml 100 ML BTL 100 ML IV SCH ×2 (17:44→21:16)
[2021-10-31] MEDS ORDERED: Albuterol 2.5mg/3 ml (0.083%) NEB.SOLN INH PRN (17:51)
[2021-10-31] MEDS: Albuterol/Ipratropium NEB.SOL (2.5/0.5 MG) 3 ML NEB.SOLN INH SCH ×2 (19:35→23:18)
[2021-10-31] MEDS: oxyCODONE 5 mg/5 ml ORAL.SOLN UDC PO PRN (21:33)
[2021-10-31] MEDS: methylPREDNISolone SOD SUCC 125 mg 2 ML VIAL IV SCH (21:34)
[2021-11-01] MEDS: Albuterol/Ipratropium NEB.SOL (2.5/0.5 MG) 3 ML NEB.SOLN INH SCH ×6 (02:50→23:24)
[2021-11-01 04:11] LABS: ABS Lymphocytes 0.4 10^3/ul (1.0-4.8); ABS Monocytes 0.1 10^3/ul (0-0.8); ABS Neutrophils 6.5 10^3/ul (1.5-7.7); Hematocrit 26 % (42-52); Hemoglobin 7.9 g/dL (14.0-18.0); Lymphocyte % 5.3 %; Mean Corpuscular HGB Conc 31 g/dL (31-36); Mean Corpuscular Hemoglobin 24 pg (27-31); Mean Corpuscular Volume 77 fL (80-94); Mean Platelet Volume 7.7 fL (7.4-10.4); Nucleated Red Blood Cells % 0.2; Platelet Count 375 10^3/uL (150-450); Red Blood Count 3.32 10^6 /uL (4.18-5.48); Red Cell Distribution Width 23 % (10-15)
[2021-11-01 04:47] LABS: Magnesium 1.9 mg/dL (1.9-2.7); eGFR CKD-EPI 102.9 (>60)
[2021-11-01] MEDS: methylPREDNISolone SOD SUCC 125 mg 2 ML VIAL IV SCH ×3 (05:19→17:48)
[2021-11-01] MEDS: Pantoprazole VIAL 40 MG VIAL IV SCH (08:25)
[2021-11-01] MEDS: Multivitamins ADULT w/MIN LIQ 15 ML UDC NG TUBE SCH (08:25)
[2021-11-01] MEDS: Chlorhexidine MOUTHWASH 0.12% 15 ML UDC SWISH SPIT SCH ×3 (08:25→19:46)
[2021-11-01] MEDS: Saline FLUSH-CENTRAL 10 ML SYRINGE CENT\\PICC SCH ×2 (08:30→19:46)
[2021-11-01] MEDS: Polyethylene Glycol 3350 17 GM PACKET NG TUBE SCH (08:30)
[2021-11-01] MEDS: Enoxaparin 40 MG/0.4 ML SYR SUBCUT SCH (11:47)
[2021-11-01] MEDS ORDERED: Acetylcysteine INH SOL (RT) 200 MG/ML 4 ML VIAL INH ONE (16:04)
[2021-11-01] MEDS ORDERED: methylPREDNISolone SOD SUCC 125 mg 2 ML VIAL IV ONE (16:04)
[2021-11-01] MEDS ORDERED: fentaNYL 100 mcg/2 ml 50 MCG/ML VIAL ONE (16:13)
[2021-11-01] MEDS ORDERED: Midazolam 5 mg/5 ml VIAL 1 mg/ml 5 ml VIAL (5 mg) ONE (16:13)
[2021-11-01] MEDS ORDERED: Lidocaine 1% VIAL 10 MG/ML VIAL ONE (16:38)
[2021-11-01] MEDS ORDERED: Dexmedetomidine 1,000 MCG in NS 0.9% 250 ML IV SCH (17:00)
[2021-11-01] MEDS ORDERED: Vancomycin 1,000 MG in NS 0.9% 250 ml 250 ML IVPB ONE (20:05)
[2021-11-01] MEDS ORDERED: fentaNYL 100 mcg/2 ml 50 MCG/ML VIAL IV SLOW PU ONE (20:16)
[2021-11-01] MEDS: Propofol 10 mg/ml 100 ML BTL 100 ML IV SCH (20:46)
[2021-11-01] MEDS ORDERED: Vancomycin per Pharmacy 1 EA NOTE FOLLOW UP SCH (21:00)
[2021-11-01] MEDS ORDERED: Vancomycin 1,750 MG in NS 0.9% 500 ml BAG 500 ML IVPB ONE (21:00)
[2021-11-02] MEDS: methylPREDNISolone SOD SUCC 125 mg 2 ML VIAL IV SCH ×3 (01:39→17:46)
[2021-11-02] MEDS: Albuterol/Ipratropium NEB.SOL (2.5/0.5 MG) 3 ML NEB.SOLN INH SCH ×6 (03:04→22:53)
[2021-11-02] MEDS: oxyCODONE 5 mg/5 ml ORAL.SOLN UDC PO PRN ×2 (03:38→15:45)
[2021-11-02 04:58] LABS: ABS Lymphocytes 0.3 10^3/ul (1.0-4.8); ABS Monocytes 0.5 10^3/ul (0-0.8); ABS Neutrophils 8.1 10^3/ul (1.5-7.7); Eosinophil % 0.1 %; Hematocrit 26 % (42-52); Hemoglobin 7.8 g/dL (14.0-18.0); Lymphocyte % 3.7 %; Mean Corpuscular HGB Conc 31 g/dL (31-36); Mean Corpuscular Hemoglobin 23 pg (27-31); Mean Corpuscular Volume 77 fL (80-94); Mean Platelet Volume 7.7 fL (7.4-10.4); Nucleated Red Blood Cells % 0.3; Platelet Count 390 10^3/uL (150-450); Red Blood Count 3.34 10^6 /uL (4.18-5.48); Red Cell Distribution Width 23 % (10-15); White Blood Count 8.9 10^3/uL (3.5-10.8)
[2021-11-02 05:38] LABS: Calcium 8.1 mg/dL (8.6-10.3); Magnesium 1.8 mg/dL (1.9-2.7); Potassium 4.1 mmol/L (3.5-5.0); eGFR CKD-EPI 116.8 (>60)
[2021-11-02] MEDS ORDERED: Dextrose 50% Syringe 50 ml 25 GM/50 ML SYRINGE IV PUSH PRN (06:50)
[2021-11-02] MEDS ORDERED: Magnesium Sulfate 2 gm BAG 2 GM/50 ML BAG IVPB ONE (07:12)
[2021-11-02] MEDS: Polyethylene Glycol 3350 17 GM PACKET NG TUBE SCH (08:21)
[2021-11-02] MEDS: Pantoprazole VIAL 40 MG VIAL IV SCH (08:21)
[2021-11-02] MEDS: Chlorhexidine MOUTHWASH 0.12% 15 ML UDC SWISH SPIT SCH ×3 (08:21→20:26)
[2021-11-02] MEDS: Multivitamins ADULT w/MIN LIQ 15 ML UDC NG TUBE SCH (08:21)
[2021-11-02] MEDS: Saline FLUSH-CENTRAL 10 ML SYRINGE CENT\\PICC SCH ×2 (08:22→20:28)
[2021-11-02] MEDS: Vancomycin 1,750 MG in NS 0.9% 500 ml BAG 500 ML IVPB SCH ×2 (08:23→21:08)
[2021-11-02] MEDS: fentaNYL 100 mcg/2 ml 50 MCG/ML VIAL IV SLOW PU PRN ×3 (08:23→17:46)
[2021-11-02] MEDS: Propofol 10 mg/ml 100 ML BTL 100 ML IV SCH ×4 (10:13→22:29)
[2021-11-02] MEDS: Enoxaparin 40 MG/0.4 ML SYR SUBCUT SCH (10:22)
[2021-11-02] MEDS ORDERED: Meropenem 1 GM PREMIX(*) 1 GM/50 ML BAG IV SCH (14:00)
[2021-11-02] MEDS: Meropenem 1 GM PREMIX(*) 1 GM/50 ML BAG IV SCH ×2 (14:52→22:29)
[2021-11-02] MEDS: LORazepam 2 mg VIAL 1 ml IV PUSH PRN (15:45)
[2021-11-02] MEDS: Dextran 70/Hypromellose Tears Eye Drops 15 ml BTL (for Artificials Tears) BOTH EYES PRN (20:27)
[2021-11-02] MEDS: Saliva Substitute (NF) 1 SPRAY BTL MT PRN (20:28)
[2021-11-03] MEDS: methylPREDNISolone SOD SUCC 125 mg 2 ML VIAL IV SCH ×2 (01:41→10:28)
[2021-11-03] MEDS: Propofol 10 mg/ml 100 ML BTL 100 ML IV SCH (02:12)
[2021-11-03] MEDS: oxyCODONE 5 mg/5 ml ORAL.SOLN UDC PO PRN ×3 (02:12→20:34)
[2021-11-03] MEDS: Albuterol/Ipratropium NEB.SOL (2.5/0.5 MG) 3 ML NEB.SOLN INH SCH ×3 (02:59→19:36)
[2021-11-03 05:05] LABS: ABS Lymphocytes 0.4 10^3/ul (1.0-4.8); ABS Monocytes 0.3 10^3/ul (0-0.8); ABS Neutrophils 6.3 10^3/ul (1.5-7.7); Hematocrit 26 % (42-52); Hemoglobin 8.1 g/dL (14.0-18.0); Lymphocyte % 5.4 %; Mean Corpuscular HGB Conc 31 g/dL (31-36); Mean Corpuscular Hemoglobin 24 pg (27-31); Mean Corpuscular Volume 77 fL (80-94); Mean Platelet Volume 7.8 fL (7.4-10.4); Nucleated Red Blood Cells % 0.4; Platelet Count 355 10^3/uL (150-450); Red Blood Count 3.39 10^6 /uL (4.18-5.48); Red Cell Distribution Width 23 % (10-15)
[2021-11-03] MEDS: fentaNYL 100 mcg/2 ml 50 MCG/ML VIAL IV SLOW PU PRN ×2 (05:25→10:27)
[2021-11-03 05:28] LABS: Albumin 2.6 g/dL (3.2-5.2); Calcium 8.2 mg/dL (8.6-10.3); Globulin 2.5 g/dL (2-4); Magnesium 2.1 mg/dL (1.9-2.7); Potassium 3.9 mmol/L (3.5-5.0); Total Bilirubin 0.5 mg/dL (0.2-1.0); Total Protein 5.1 g/dL (6.4-8.9); eGFR CKD-EPI 108.3 (>60)
[2021-11-03] MEDS: Meropenem 1 GM PREMIX(*) 1 GM/50 ML BAG IV SCH ×3 (05:44→20:35)
[2021-11-03] MEDS: Polyethylene Glycol 3350 17 GM PACKET NG TUBE SCH (07:56)
[2021-11-03] MEDS: Saline FLUSH-CENTRAL 10 ML SYRINGE CENT\\PICC SCH ×2 (07:56→20:36)
[2021-11-03] MEDS: Pantoprazole VIAL 40 MG VIAL IV SCH (07:56)
[2021-11-03] MEDS: Chlorhexidine MOUTHWASH 0.12% 15 ML UDC SWISH SPIT SCH ×3 (07:56→20:35)
[2021-11-03] MEDS: Multivitamins ADULT w/MIN LIQ 15 ML UDC NG TUBE SCH (07:56)
[2021-11-03] MEDS ORDERED: Vancomycin Trough Check NOTE FOLLOW UP ONE ×2 (08:30)
[2021-11-03] MEDS: Enoxaparin 40 MG/0.4 ML SYR SUBCUT SCH (10:28)
[2021-11-03] MEDS: Vancomycin 1,750 MG in NS 0.9% 500 ml BAG 500 ML IVPB SCH (10:28)
[2021-11-03] MEDS: LORazepam 2 mg VIAL 1 ml IV PUSH PRN (12:05)
[2021-11-03] MEDS ORDERED: Lorazepam PYXIS KEY PRN (15:42)
[2021-11-03] MEDS ORDERED: Lorazepam PYXIS KEY ONE (15:43)
[2021-11-03] MEDS ORDERED: LORazepam 2 mg VIAL 1 ml IV PUSH ONE (15:43)
[2021-11-03] MEDS ORDERED: LORazepam 2 mg VIAL 1 ml ONE (15:44)
[2021-11-03] MEDS: Dexmedetomidine 1,000 MCG in NS 0.9% 250 ml 240 ML IV SCH (18:13)
[2021-11-03] MEDS: Vancomycin 1,500 MG in NS 0.9% 250 ml 250 ML IVPB SCH (21:33)
[2021-11-04] MEDS: fentaNYL 100 mcg/2 ml 50 MCG/ML VIAL IV SLOW PU PRN (01:03)
[2021-11-04] MEDS: oxyCODONE 5 mg/5 ml ORAL.SOLN UDC PO PRN (04:57)
[2021-11-04] MEDS: Meropenem 1 GM PREMIX(*) 1 GM/50 ML BAG IV SCH ×3 (05:06→22:48)
[2021-11-04 05:11] LABS: ABS Monocytes 0.5 10^3/ul (0-0.8); ABS Neutrophils 7.3 10^3/ul (1.5-7.7); ABS Nucleated RBC 0.1 10^3/ul; Hematocrit 30 % (42-52); Hemoglobin 9.3 g/dL (14.0-18.0); Lymphocyte % 11.7 %; Mean Corpuscular HGB Conc 31 g/dL (31-36); Mean Corpuscular Hemoglobin 24 pg (27-31); Mean Corpuscular Volume 77 fL (80-94); Mean Platelet Volume 7.7 fL (7.4-10.4); Nucleated Red Blood Cells % 0.6; Platelet Count 371 10^3/uL (150-450); Red Blood Count 3.91 10^6 /uL (4.18-5.48); Red Cell Distribution Width 23 % (10-15); White Blood Count 8.9 10^3/uL (3.5-10.8)
[2021-11-04 05:47] LABS: Calcium 8.4 mg/dL (8.6-10.3); Magnesium 1.8 mg/dL (1.9-2.7); Potassium 3.3 mmol/L (3.5-5.0); eGFR CKD-EPI 108.9 (>60)
[2021-11-04] MEDS: Albuterol/Ipratropium NEB.SOL (2.5/0.5 MG) 3 ML NEB.SOLN INH SCH ×2 (07:19→19:03)
[2021-11-04] MEDS ORDERED: Potassium Chloride LIQUID 20 MEQ/15 ML LIQUID PO ONE (08:01)
[2021-11-04] MEDS: Pantoprazole VIAL 40 MG VIAL IV SCH (08:24)
[2021-11-04] MEDS: Chlorhexidine MOUTHWASH 0.12% 15 ML UDC SWISH SPIT SCH ×3 (08:24→20:06)
[2021-11-04] MEDS: Multivitamins ADULT w/MIN LIQ 15 ML UDC NG TUBE SCH (08:24)
[2021-11-04] MEDS: Polyethylene Glycol 3350 17 GM PACKET NG TUBE SCH (08:25)
[2021-11-04] MEDS: Saline FLUSH-CENTRAL 10 ML SYRINGE CENT\\PICC SCH ×2 (10:17→20:17)
[2021-11-04] MEDS: Vancomycin 1,500 MG in NS 0.9% 250 ml 250 ML IVPB SCH ×2 (10:19→22:23)
[2021-11-04] MEDS: Enoxaparin 40 MG/0.4 ML SYR SUBCUT SCH (10:20)
[2021-11-04] MEDS: Dexmedetomidine 1,000 MCG in NS 0.9% 250 ml 240 ML IV SCH (11:10)
[2021-11-04] MEDS ORDERED: Magnesium Sulfate 2 gm BAG 2 GM/50 ML BAG IVPB ONE (14:17)
[2021-11-04] MEDS ORDERED: Magnesium Sulfate 2 gm BAG 2 GM/50 ML BAG ONE (14:24)
[2021-11-04 14:48] LABS: Phosphorus 3.5 mg/dL (2.5-5.0)
[2021-11-04] MEDS: KCL 20 MEQ/100 ML IVPREMIX 20 MEQ/100 ML BAG IV SCH ×3 (15:26→20:15)
[2021-11-05 05:13] LABS: ABS Basophils 0.1 10^3/ul (0-0.2); ABS Lymphocytes 1.3 10^3/ul (1.0-4.8); ABS Monocytes 0.6 10^3/ul (0-0.8); ABS Neutrophils 9.7 10^3/ul (1.5-7.7); ABS Nucleated RBC 0.1 10^3/ul; Eosinophil % 0.2 %; Hematocrit 31 % (42-52); Hemoglobin 9.6 g/dL (14.0-18.0); Mean Corpuscular HGB Conc 31 g/dL (31-36); Mean Corpuscular Hemoglobin 23 pg (27-31); Mean Corpuscular Volume 76 fL (80-94); Mean Platelet Volume 7.5 fL (7.4-10.4); Nucleated Red Blood Cells % 0.7; Platelet Count 355 10^3/uL (150-450); Red Blood Count 4.11 10^6 /uL (4.18-5.48); Red Cell Distribution Width 23 % (10-15); White Blood Count 11.6 10^3/uL (3.5-10.8)
[2021-11-05] MEDS: Meropenem 1 GM PREMIX(*) 1 GM/50 ML BAG IV SCH ×3 (05:33→22:21)
[2021-11-05 05:53] LABS: Calcium 8.4 mg/dL (8.6-10.3); Magnesium 1.9 mg/dL (1.9-2.7); Potassium 3.6 mmol/L (3.5-5.0); eGFR CKD-EPI 109.5 (>60)
[2021-11-05] MEDS: Dexmedetomidine 1,000 MCG in NS 0.9% 250 ml 240 ML IV SCH (07:07)
[2021-11-05] MEDS: Albuterol/Ipratropium NEB.SOL (2.5/0.5 MG) 3 ML NEB.SOLN INH SCH ×2 (07:11→19:16)
[2021-11-05] MEDS ORDERED: Magnesium Sulfate IV 1GM/100ML 1 GM/100 ML BAG IV ONE (07:12)
[2021-11-05] MEDS ORDERED: Potassium Chloride LIQUID 20 MEQ/15 ML LIQUID PO ONE (07:12)
[2021-11-05] MEDS: Chlorhexidine MOUTHWASH 0.12% 15 ML UDC SWISH SPIT SCH ×3 (07:52→20:48)
[2021-11-05] MEDS: Pantoprazole VIAL 40 MG VIAL IV SCH (07:53)
[2021-11-05] MEDS: Multivitamins ADULT w/MIN LIQ 15 ML UDC NG TUBE SCH (07:53)
[2021-11-05] MEDS: Saline FLUSH-CENTRAL 10 ML SYRINGE CENT\\PICC SCH ×2 (07:54→20:49)
[2021-11-05] MEDS ORDERED: Furosemide 40 mg/4 ml IV VIAL IV SLOW PU ONE (08:00)
[2021-11-05] MEDS: Polyethylene Glycol 3350 17 GM PACKET NG TUBE SCH (08:05)
[2021-11-05] MEDS: Vancomycin 1,500 MG in NS 0.9% 250 ml 250 ML IVPB SCH ×2 (08:07→10:03)
[2021-11-05] MEDS ORDERED: Vancomycin Trough Check NOTE FOLLOW UP ONE (08:30)
[2021-11-05] MEDS: Enoxaparin 40 MG/0.4 ML SYR SUBCUT SCH (12:19)
[2021-11-06] MEDS: Dexmedetomidine 1,000 MCG in NS 0.9% 250 ml 240 ML IV SCH (03:12)
[2021-11-06] MEDS: Acetaminophen IV 1 GM/100ML 100 ML IV PRN (04:29)
[2021-11-06 04:39] LABS: ABS Lymphocytes 1.2 10^3/ul (1.0-4.8); ABS Monocytes 0.4 10^3/ul (0-0.8); ABS Neutrophils 5.7 10^3/ul (1.5-7.7); Eosinophil % 0.7 %; Hematocrit 29 % (42-52); Hemoglobin 9.2 g/dL (14.0-18.0); Lymphocyte % 16.3 %; Mean Corpuscular HGB Conc 31 g/dL (31-36); Mean Corpuscular Hemoglobin 24 pg (27-31); Mean Corpuscular Volume 76 fL (80-94); Mean Platelet Volume 7.3 fL (7.4-10.4); Nucleated Red Blood Cells % 0.5; Platelet Count 306 10^3/uL (150-450); Red Blood Count 3.89 10^6 /uL (4.18-5.48); Red Cell Distribution Width 23 % (10-15); White Blood Count 7.4 10^3/uL (3.5-10.8)
[2021-11-06 04:59] LABS: Calcium 7.8 mg/dL (8.6-10.3); Magnesium 1.7 mg/dL (1.9-2.7); Phosphorus 3.4 mg/dL (2.5-5.0); Potassium 3.2 mmol/L (3.5-5.0); eGFR CKD-EPI 109.5 (>60)
[2021-11-06] MEDS ORDERED: Magnesium Sulfate 2 gm BAG 2 GM/50 ML BAG IVPB ONE (06:26)
[2021-11-06] MEDS ORDERED: Potassium Chloride LIQUID 20 MEQ/15 ML LIQUID PO ONE ×2 (06:26→06:41)
[2021-11-06] MEDS ORDERED: KCL 20 MEQ/100 ML IVPREMIX 20 MEQ/100 ML BAG IV ONE (06:26)
[2021-11-06] MEDS: Meropenem 1 GM PREMIX(*) 1 GM/50 ML BAG IV SCH ×3 (06:27→22:15)
[2021-11-06] MEDS: Albuterol/Ipratropium NEB.SOL (2.5/0.5 MG) 3 ML NEB.SOLN INH SCH ×2 (07:53→19:14)
[2021-11-06] MEDS ORDERED: KCL 10 MEQ/50 ML IVPREMIX 0 MEQ/0 ML BAG ONE (07:59)
[2021-11-06] MEDS: KCL 20 MEQ/100 ML IVPREMIX 20 MEQ/100 ML BAG IV SCH ×2 (08:03→10:15)
[2021-11-06] MEDS: Chlorhexidine MOUTHWASH 0.12% 15 ML UDC SWISH SPIT SCH ×3 (08:06→22:15)
[2021-11-06] MEDS: Polyethylene Glycol 3350 17 GM PACKET NG TUBE SCH (08:07)
[2021-11-06] MEDS: Multivitamins ADULT w/MIN LIQ 15 ML UDC NG TUBE SCH (08:07)
[2021-11-06] MEDS: Pantoprazole VIAL 40 MG VIAL IV SCH (08:08)
[2021-11-06] MEDS: Saline FLUSH-CENTRAL 10 ML SYRINGE CENT\\PICC SCH ×2 (08:08→22:15)
[2021-11-06] MEDS: Vancomycin 1,250 MG in NS 0.9% 250 ml 250 ML IVPB SCH ×2 (09:15→22:15)
[2021-11-06] MEDS ORDERED: Furosemide 40 mg/4 ml IV VIAL IV SLOW PU ONE (09:35)
[2021-11-06] MEDS: Enoxaparin 40 MG/0.4 ML SYR SUBCUT SCH (10:15)
[2021-11-07] MEDS: Dexmedetomidine 1,000 MCG in NS 0.9% 250 ml 240 ML IV SCH (04:56)
[2021-11-07 05:00] LABS: Hematocrit 27 % (42-52); Hemoglobin 8.7 g/dL (14.0-18.0); Mean Corpuscular HGB Conc 32 g/dL (31-36); Mean Corpuscular Hemoglobin 24 pg (27-31); Mean Corpuscular Volume 76 fL (80-94); Mean Platelet Volume 7.3 fL (7.4-10.4); Platelet Count 288 10^3/uL (150-450); Red Blood Count 3.59 10^6 /uL (4.18-5.48); Red Cell Distribution Width 23 % (10-15); White Blood Count 9.6 10^3/uL (3.5-10.8)
[2021-11-07 05:41] LABS: Calcium 7.2 mg/dL (8.6-10.3); Magnesium 1.6 mg/dL (1.9-2.7); Potassium 3.1 mmol/L (3.5-5.0); eGFR CKD-EPI 113.2 (>60)
[2021-11-07 05:54] LABS: Hypochromasia 1+
[2021-11-07 05:55] LABS: Anisocytosis 2+; Microcytosis 1+
[2021-11-07 05:56] LABS: ABS Basophils 0.1 10^3/ul (0-0.2); ABS Eosinophils 0.1 10^3/ul (0-0.6); ABS Lymphocytes 0.9 10^3/ul (1.0-4.8); ABS Monocytes 0.4 10^3/ul (0-0.8); ABS Neutrophils 8.2 10^3/ul (1.5-7.7); Eosinophil % 0.7 %; Lymphocyte % 9.5 %; Nucleated Red Blood Cells % 0.1
[2021-11-07] MEDS: Meropenem 1 GM PREMIX(*) 1 GM/50 ML BAG IV SCH ×3 (06:10→20:57)
[2021-11-07] MEDS ORDERED: Magnesium Sulfate 2 gm BAG 2 GM/50 ML BAG IVPB ONE (06:19)
[2021-11-07] MEDS ORDERED: Potassium Chloride LIQUID 20 MEQ/15 ML LIQUID PO ONE (06:19)
[2021-11-07] MEDS: Albuterol/Ipratropium NEB.SOL (2.5/0.5 MG) 3 ML NEB.SOLN INH SCH ×2 (07:13→18:56)
[2021-11-07] MEDS: Polyethylene Glycol 3350 17 GM PACKET NG TUBE SCH (07:29)
[2021-11-07] MEDS: Chlorhexidine MOUTHWASH 0.12% 15 ML UDC SWISH SPIT SCH ×3 (07:29→20:58)
[2021-11-07] MEDS: Multivitamins ADULT w/MIN LIQ 15 ML UDC NG TUBE SCH (07:29)
[2021-11-07] MEDS: KCL 20 MEQ/100 ML IVPREMIX 20 MEQ/100 ML BAG IV SCH ×2 (07:30→10:51)
[2021-11-07] MEDS: Pantoprazole VIAL 40 MG VIAL IV SCH (07:32)
[2021-11-07] MEDS: Saline FLUSH-CENTRAL 10 ML SYRINGE CENT\\PICC SCH ×2 (07:32→20:59)
[2021-11-07] MEDS: Vancomycin 1,250 MG in NS 0.9% 250 ml 250 ML IVPB SCH ×2 (07:34→20:58)
[2021-11-07] MEDS: Enoxaparin 40 MG/0.4 ML SYR SUBCUT SCH (10:52)
[2021-11-07] MEDS ORDERED: fentaNYL 100 mcg/2 ml 50 MCG/ML VIAL IV SLOW PU ONE (17:02)
[2021-11-07] MEDS: Saliva Substitute (NF) 1 SPRAY BTL MT PRN (17:28)
[2021-11-08 04:56] LABS: ABS Eosinophils 0.1 10^3/ul (0-0.6); ABS Lymphocytes 1.3 10^3/ul (1.0-4.8); ABS Monocytes 0.4 10^3/ul (0-0.8); Hematocrit 30 % (42-52); Hemoglobin 9.4 g/dL (14.0-18.0); Lymphocyte % 14.4 %; Mean Corpuscular HGB Conc 31 g/dL (31-36); Mean Corpuscular Hemoglobin 24 pg (27-31); Mean Corpuscular Volume 77 fL (80-94); Mean Platelet Volume 7.6 fL (7.4-10.4); Nucleated Red Blood Cells % 0.1; Platelet Count 317 10^3/uL (150-450); Red Blood Count 3.98 10^6 /uL (4.18-5.48); Red Cell Distribution Width 24 % (10-15); White Blood Count 8.9 10^3/uL (3.5-10.8)
[2021-11-08 05:21] LABS: Calcium 8.1 mg/dL (8.6-10.3); Magnesium 1.7 mg/dL (1.9-2.7); Potassium 3.5 mmol/L (3.5-5.0); eGFR CKD-EPI 113.9 (>60)
[2021-11-08] MEDS: Meropenem 1 GM PREMIX(*) 1 GM/50 ML BAG IV SCH ×3 (05:29→20:53)
[2021-11-08] MEDS ORDERED: Potassium Chloride LIQUID 20 MEQ/15 ML LIQUID PO ONE (06:12)
[2021-11-08] MEDS ORDERED: Magnesium Sulfate 2 gm BAG 2 GM/50 ML BAG IVPB ONE (06:12)
[2021-11-08] MEDS: Saline FLUSH-CENTRAL 10 ML SYRINGE CENT\\PICC SCH ×2 (07:52→19:30)
[2021-11-08] MEDS: Chlorhexidine MOUTHWASH 0.12% 15 ML UDC SWISH SPIT SCH ×3 (07:53→20:53)
[2021-11-08] MEDS: Vancomycin 1,250 MG in NS 0.9% 250 ml 250 ML IVPB SCH ×2 (07:53→20:53)
[2021-11-08] MEDS: Multivitamins ADULT w/MIN LIQ 15 ML UDC NG TUBE SCH (07:53)
[2021-11-08] MEDS: Pantoprazole VIAL 40 MG VIAL IV SCH (07:53)
[2021-11-08] MEDS: Albuterol/Ipratropium NEB.SOL (2.5/0.5 MG) 3 ML NEB.SOLN INH SCH ×2 (07:56→19:17)
[2021-11-08] MEDS: Acetaminophen IV 1 GM/100ML 100 ML IV PRN (12:04)
[2021-11-08] MEDS: Enoxaparin 40 MG/0.4 ML SYR SUBCUT SCH (12:05)
[2021-11-09 04:07] LABS: ABS Basophils 0.1 10^3/ul (0-0.2); ABS Eosinophils 0.1 10^3/ul (0-0.6); ABS Lymphocytes 1.1 10^3/ul (1.0-4.8); ABS Monocytes 0.5 10^3/ul (0-0.8); ABS Neutrophils 6.9 10^3/ul (1.5-7.7); Eosinophil % 1.3 %; Hematocrit 29 % (42-52); Hemoglobin 8.8 g/dL (14.0-18.0); Lymphocyte % 12.7 %; Mean Corpuscular HGB Conc 31 g/dL (31-36); Mean Corpuscular Hemoglobin 24 pg (27-31); Mean Corpuscular Volume 77 fL (80-94); Mean Platelet Volume 7.5 fL (7.4-10.4); Nucleated Red Blood Cells % 0.2; Platelet Count 296 10^3/uL (150-450); Red Cell Distribution Width 24 % (10-15); White Blood Count 8.8 10^3/uL (3.5-10.8)
[2021-11-09 04:45] LABS: Calcium 7.9 mg/dL (8.6-10.3); Magnesium 1.8 mg/dL (1.9-2.7); Potassium 3.9 mmol/L (3.5-5.0); eGFR CKD-EPI 112.6 (>60)
[2021-11-09] MEDS: Meropenem 1 GM PREMIX(*) 1 GM/50 ML BAG IV SCH (05:30)
[2021-11-09] MEDS ORDERED: Magnesium Sulfate IV 1GM/100ML 1 GM/100 ML BAG IV ONE (07:48)
[2021-11-09] MEDS: Albuterol/Ipratropium NEB.SOL (2.5/0.5 MG) 3 ML NEB.SOLN INH SCH ×2 (07:58→18:59)
[2021-11-09] MEDS: Vancomycin 1,250 MG in NS 0.9% 250 ml 250 ML IVPB SCH ×2 (08:10→20:39)
[2021-11-09] MEDS: Chlorhexidine MOUTHWASH 0.12% 15 ML UDC SWISH SPIT SCH ×2 (08:10→14:13)
[2021-11-09] MEDS: Pantoprazole VIAL 40 MG VIAL IV SCH (08:10)
[2021-11-09] MEDS: Multivitamins ADULT w/MIN LIQ 15 ML UDC NG TUBE SCH (08:11)
[2021-11-09] MEDS: Saline FLUSH-CENTRAL 10 ML SYRINGE CENT\\PICC SCH (08:11)
[2021-11-09] MEDS: Enoxaparin 40 MG/0.4 ML SYR SUBCUT SCH (12:36)
[2021-11-10] MEDS: Albuterol/Ipratropium NEB.SOL (2.5/0.5 MG) 3 ML NEB.SOLN INH SCH ×2 (07:44→19:03)
[2021-11-10] MEDS ORDERED: Vancomycin Trough Check NOTE FOLLOW UP ONE (08:30)
[2021-11-10] MEDS: Vancomycin 1,250 MG in NS 0.9% 250 ml 250 ML IVPB SCH (08:56)
[2021-11-10] MEDS: Saliva Substitute (NF) 1 SPRAY BTL MT PRN (09:47)
[2021-11-10] MEDS: Enoxaparin 40 MG/0.4 ML SYR SUBCUT SCH (11:21)
[2021-11-10] MEDS: Lansoprazole SUSP ORALSYR 3 MG/ML PO SCH (11:22)
[2021-11-10] MEDS: Multivitamins ADULT w/MIN LIQ 15 ML UDC NG TUBE SCH (11:22)
[2021-11-11 05:50] LABS: ABS Eosinophils 0.1 10^3/ul (0-0.6); ABS Lymphocytes 1.1 10^3/ul (1.0-4.8); ABS Monocytes 0.6 10^3/ul (0-0.8); ABS Neutrophils 3.7 10^3/ul (1.5-7.7); Eosinophil % 1.9 %; Hematocrit 32 % (42-52); Hemoglobin 9.8 g/dL (14.0-18.0); Mean Corpuscular HGB Conc 31 g/dL (31-36); Mean Corpuscular Hemoglobin 24 pg (27-31); Mean Corpuscular Volume 78 fL (80-94); Mean Platelet Volume 7.5 fL (7.4-10.4); Platelet Count 320 10^3/uL (150-450); Red Blood Count 4.06 10^6 /uL (4.18-5.48); Red Cell Distribution Width 25 % (10-15); White Blood Count 5.5 10^3/uL (3.5-10.8)
[2021-11-11 06:36] LABS: Calcium 8.4 mg/dL (8.6-10.3); Magnesium 1.6 mg/dL (1.9-2.7); Potassium 3.5 mmol/L (3.5-5.0); eGFR CKD-EPI 112.6 (>60)
[2021-11-11] MEDS: Albuterol/Ipratropium NEB.SOL (2.5/0.5 MG) 3 ML NEB.SOLN INH SCH ×3 (07:22→15:59)
[2021-11-11] MEDS ORDERED: Magnesium Sulfate 2 gm BAG 2 GM/50 ML BAG IVPB ONE (07:28)
[2021-11-11] MEDS: Saliva Substitute (NF) 1 SPRAY BTL MT PRN ×2 (08:07→21:37)
[2021-11-11] MEDS ORDERED: Albuterol 2.5mg/3 ml (0.083%) NEB.SOLN INH PRN (08:33)
[2021-11-11] MEDS: Multivitamins ADULT w/MIN LIQ 15 ML UDC NG TUBE SCH (09:56)
[2021-11-11] MEDS: Lansoprazole SUSP ORALSYR 3 MG/ML PO SCH (09:58)
[2021-11-11] MEDS: Enoxaparin 40 MG/0.4 ML SYR SUBCUT SCH (10:01)
[2021-11-11] MEDS: Budesonide NEB 0.5 MG/2 ML NEB.SOLN INH SCH ×2 (11:21→19:02)
[2021-11-11] MEDS: Ondansetron 4 mg VIAL 2 MG/ML 2 ml VIAL IV PRN (22:01)
[2021-11-12] MEDS: Albuterol/Ipratropium NEB.SOL (2.5/0.5 MG) 3 ML NEB.SOLN INH SCH ×3 (00:37→19:34)
[2021-11-12] MEDS: Budesonide NEB 0.5 MG/2 ML NEB.SOLN INH SCH ×2 (07:01→19:34)
[2021-11-12] MEDS: Saliva Substitute (NF) 1 SPRAY BTL MT PRN (08:50)
[2021-11-12] MEDS: Multivitamins ADULT w/MIN LIQ 15 ML UDC NG TUBE SCH (08:50)
[2021-11-12] MEDS: Lansoprazole SUSP ORALSYR 3 MG/ML PO SCH (08:52)
[2021-11-12] MEDS: Enoxaparin 40 MG/0.4 ML SYR SUBCUT SCH (11:33)
[2021-11-12 12:36] LABS: Calcium 8.6 mg/dL (8.6-10.3); Potassium 3.7 mmol/L (3.5-5.0); Uric Acid 4.5 mg/dL (4.4-7.6); eGFR CKD-EPI 110.1 (>60)
[2021-11-12 20:43] LABS: Magnesium 1.6 mg/dL (1.9-2.7)
[2021-11-13] MEDS ORDERED: Magnesium Sulf 4 GM/100 ML IV 4,000 MG/100 ML BAG IVPB ONE (00:51)
[2021-11-13] MEDS: Albuterol/Ipratropium NEB.SOL (2.5/0.5 MG) 3 ML NEB.SOLN INH SCH ×4 (01:39→18:54)
[2021-11-13] MEDS ORDERED: Magnesium Sulfate 2 gm BAG 2 GM/50 ML BAG IVPB ONE ×2 (07:18→15:10)
[2021-11-13] MEDS: Budesonide NEB 0.5 MG/2 ML NEB.SOLN INH SCH ×2 (07:50→18:54)
[2021-11-13] MEDS: Multivitamins ADULT w/MIN LIQ 15 ML UDC NG TUBE SCH (08:01)
[2021-11-13] MEDS: Lansoprazole SUSP ORALSYR 3 MG/ML PO SCH (08:01)
[2021-11-13] MEDS: Enoxaparin 40 MG/0.4 ML SYR SUBCUT SCH (11:43)
[2021-11-13 13:58] LABS: Hematocrit 30 % (42-52); Hemoglobin 9.3 g/dL (14.0-18.0); Mean Corpuscular HGB Conc 31 g/dL (31-36); Mean Corpuscular Hemoglobin 24 pg (27-31); Mean Corpuscular Volume 78 fL (80-94); Mean Platelet Volume 7.3 fL (7.4-10.4); Platelet Count 361 10^3/uL (150-450); Red Blood Count 3.82 10^6 /uL (4.18-5.48); Red Cell Distribution Width 25 % (10-15); White Blood Count 8.4 10^3/uL (3.5-10.8)
[2021-11-13 14:04] LABS: ABS Eosinophils 0.1 10^3/ul (0-0.6); ABS Monocytes 0.5 10^3/ul (0-0.8); ABS Neutrophils 6.8 10^3/ul (1.5-7.7); Eosinophil % 0.8 %
[2021-11-13 14:46] LABS: Albumin 3.4 g/dL (3.2-5.2); Albumin/Globulin Ratio 1.5 (1-3); Calcium 8.6 mg/dL (8.6-10.3); Globulin 2.2 g/dL (2-4); Magnesium 1.7 mg/dL (1.9-2.7); Potassium 4.1 mmol/L (3.5-5.0); Total Bilirubin 0.7 mg/dL (0.2-1.0); Total Protein 5.6 g/dL (6.4-8.9); eGFR CKD-EPI 109.5 (>60)
[2021-11-13] MEDS ORDERED: LORazepam 2 mg VIAL 1 ml IV PUSH ONE (21:46)
[2021-11-13] MEDS ORDERED: Lorazepam PYXIS KEY PRN (21:46)
[2021-11-14] MEDS: Albuterol/Ipratropium NEB.SOL (2.5/0.5 MG) 3 ML NEB.SOLN INH SCH ×3 (00:49→17:17)
[2021-11-14] MEDS: Budesonide NEB 0.5 MG/2 ML NEB.SOLN INH SCH ×2 (07:35→19:46)
[2021-11-14] MEDS: Lansoprazole SUSP ORALSYR 3 MG/ML PO SCH (08:39)
[2021-11-14] MEDS: Multivitamins ADULT w/MIN LIQ 15 ML UDC NG TUBE SCH (08:40)
[2021-11-14] MEDS: Enoxaparin 40 MG/0.4 ML SYR SUBCUT SCH (11:45)
[2021-11-14] MEDS ORDERED: Albuterol HFA INHALER 8 gm MDI INH PRN (17:36)
[2021-11-15] MEDS: Albuterol/Ipratropium NEB.SOL (2.5/0.5 MG) 3 ML NEB.SOLN INH SCH ×4 (02:47→17:01)
[2021-11-15] MEDS: Saliva Substitute (NF) 1 SPRAY BTL MT PRN (03:31)
[2021-11-15] MEDS: Budesonide NEB 0.5 MG/2 ML NEB.SOLN INH SCH (08:16)
[2021-11-15] MEDS: Enoxaparin 40 MG/0.4 ML SYR SUBCUT SCH (10:15)
[2021-11-15] MEDS: Multivitamins/Minerals TAB PO SCH (10:15)
[2021-11-15] MEDS: Ondansetron 4 mg VIAL 2 MG/ML 2 ml VIAL IV PRN (11:40)
[2021-11-16] MEDS: Albuterol/Ipratropium NEB.SOL (2.5/0.5 MG) 3 ML NEB.SOLN INH SCH ×2 (00:32→07:31)
[2021-11-16] MEDS: Budesonide NEB 0.5 MG/2 ML NEB.SOLN INH SCH ×2 (00:32→07:31)
[2021-11-16] MEDS: Ondansetron 4 mg VIAL 2 MG/ML 2 ml VIAL IV PRN (04:34)
[2021-11-16 08:04] VITALS: BP 140/77
[2021-11-16] MEDS: Multivitamins/Minerals TAB PO SCH (08:17)
== END 2021-11-16 08:58 | DRG 4 ==
LOC: ED 02:22 → SUATTDRO 04:31 → ICU 04:31
PROVIDERS: ADMIT Internal Medicine; ATTEND Internal Medicine

== ENCOUNTER 2021-11-16 08:26 | Inpatient (IN) ==
[2021-11-16] MEDS ORDERED: Magnesium Hydroxide LIQ 30 ML UDC PO PRN (11:43)
[2021-11-16] MEDS ORDERED: Senna TAB 8.6 mg TAB PO PRN (11:43)
[2021-11-16] MEDS ORDERED: Enoxaparin 40 MG/0.4 ML SYR SUBCUT SCH (12:00)
[2021-11-16] MEDS: Albuterol/Ipratropium NEB.SOL (2.5/0.5 MG) 3 ML NEB.SOLN INH SCH (15:35)
[2021-11-16] MEDS: Albuterol HFA INHALER 8 gm MDI INH PRN ×2 (18:03→23:44)
[2021-11-16] MEDS: Budesonide NEB 0.5 MG/2 ML NEB.SOLN INH SCH (19:24)
[2021-11-17] MEDS: Albuterol/Ipratropium NEB.SOL (2.5/0.5 MG) 3 ML NEB.SOLN INH SCH (00:04)
[2021-11-17] MEDS: Enoxaparin 40 MG/0.4 ML SYR SUBCUT SCH (09:04)
[2021-11-17] MEDS: Budesonide NEB 0.5 MG/2 ML NEB.SOLN INH SCH ×2 (09:46→19:30)
[2021-11-17] MEDS: Albuterol HFA INHALER 8 gm MDI INH PRN (17:56)
[2021-11-18] MEDS: Albuterol HFA INHALER 8 gm MDI INH PRN ×3 (05:47→20:50)
[2021-11-18] MEDS: Mometasone/Formoter 200/5 MDI INH SCH ×3 (05:49→20:20)
[2021-11-18 06:10] LABS: ABS Basophils 0.1 10^3/ul (0-0.2); ABS Eosinophils 0.1 10^3/ul (0-0.6); ABS Lymphocytes 1.1 10^3/ul (1.0-4.8); ABS Monocytes 0.5 10^3/ul (0-0.8); ABS Neutrophils 3.7 10^3/ul (1.5-7.7); Eosinophil % 2.2 %; Hematocrit 29 % (42-52); Hemoglobin 9.3 g/dL (14.0-18.0); Lymphocyte % 19.9 %; Mean Corpuscular HGB Conc 32 g/dL (31-36); Mean Corpuscular Hemoglobin 25 pg (27-31); Mean Corpuscular Volume 77 fL (80-94); Mean Platelet Volume 7.5 fL (7.4-10.4); Platelet Count 349 10^3/uL (150-450); Red Cell Distribution Width 25 % (10-15); White Blood Count 5.5 10^3/uL (3.5-10.8)
[2021-11-18 06:58] LABS: Albumin 3.1 g/dL (3.2-5.2); Albumin/Globulin Ratio 1.3 (1-3); Calcium 8.5 mg/dL (8.6-10.3); Globulin 2.4 g/dL (2-4); Potassium 3.3 mmol/L (3.5-5.0); Total Bilirubin 0.6 mg/dL (0.2-1.0); Total Protein 5.5 g/dL (6.4-8.9); eGFR CKD-EPI 107.3 (>60)
[2021-11-18] MEDS: Enoxaparin 40 MG/0.4 ML SYR SUBCUT SCH (10:04)
[2021-11-19] MEDS: Albuterol HFA INHALER 8 gm MDI INH PRN ×3 (03:19→19:06)
[2021-11-19] MEDS: Enoxaparin 40 MG/0.4 ML SYR SUBCUT SCH (08:45)
[2021-11-19] MEDS: Mometasone/Formoter 200/5 MDI INH SCH ×2 (09:29→19:08)
[2021-11-19] MEDS: Potassium Chlor 20 meq TAB.ER PO SCH (19:48)
[2021-11-20] MEDS: Albuterol HFA INHALER 8 gm MDI INH PRN ×2 (05:48→20:18)
[2021-11-20] MEDS: Mometasone/Formoter 200/5 MDI INH SCH ×2 (05:50→20:14)
[2021-11-20] MEDS: Enoxaparin 40 MG/0.4 ML SYR SUBCUT SCH (09:57)
[2021-11-20] MEDS: Potassium Chlor 20 meq TAB.ER PO SCH ×2 (10:00→20:13)
[2021-11-21 06:49] LABS: Potassium 3.5 mmol/L (3.5-5.0); eGFR CKD-EPI 111.3 (>60)
[2021-11-21] MEDS: Mometasone/Formoter 200/5 MDI INH SCH ×2 (09:09→18:25)
[2021-11-21] MEDS: Potassium Chlor 20 meq TAB.ER PO SCH ×2 (10:10→20:50)
[2021-11-21] MEDS: Enoxaparin 40 MG/0.4 ML SYR SUBCUT SCH (10:16)
[2021-11-21] MEDS: Albuterol HFA INHALER 8 gm MDI INH PRN ×2 (17:57→22:02)
[2021-11-22] MEDS: Albuterol HFA INHALER 8 gm MDI INH PRN ×3 (04:53→22:09)
[2021-11-22] MEDS: Mometasone/Formoter 200/5 MDI INH SCH ×2 (08:38→18:55)
[2021-11-22] MEDS: Potassium Chlor 20 meq TAB.ER PO SCH ×2 (08:45→20:34)
[2021-11-22] MEDS: Enoxaparin 40 MG/0.4 ML SYR SUBCUT SCH (08:49)
[2021-11-23] MEDS: Enoxaparin 40 MG/0.4 ML SYR SUBCUT SCH (08:47)
[2021-11-23] MEDS: Potassium Chlor 20 meq TAB.ER PO SCH ×2 (08:50→20:43)
[2021-11-23] MEDS: Mometasone/Formoter 200/5 MDI INH SCH ×2 (08:53→18:48)
[2021-11-23] MEDS: Albuterol HFA INHALER 8 gm MDI INH PRN ×2 (08:54→18:46)
[2021-11-24] MEDS: Albuterol HFA INHALER 8 gm MDI INH PRN ×3 (06:42→22:11)
[2021-11-24] MEDS: Mometasone/Formoter 200/5 MDI INH SCH ×2 (06:43→18:48)
[2021-11-24] MEDS: Potassium Chlor 20 meq TAB.ER PO SCH (08:16)
[2021-11-24] MEDS: Enoxaparin 40 MG/0.4 ML SYR SUBCUT SCH (08:22)
[2021-11-25] MEDS: Albuterol HFA INHALER 8 gm MDI INH PRN (05:07)
[2021-11-25] MEDS: Mometasone/Formoter 200/5 MDI INH SCH (05:08)
[2021-11-25 05:59] VITALS: BP 156/87
[2021-11-25 06:40] LABS: ABS Basophils 0.1 10^3/ul (0-0.2); ABS Eosinophils 0.3 10^3/ul (0-0.6); ABS Monocytes 0.7 10^3/ul (0-0.8); ABS Neutrophils 3.1 10^3/ul (1.5-7.7); Eosinophil % 4.2 %; Hematocrit 32 % (42-52); Hemoglobin 10.3 g/dL (14.0-18.0); Lymphocyte % 33.1 %; Mean Corpuscular HGB Conc 33 g/dL (31-36); Mean Corpuscular Hemoglobin 25 pg (27-31); Mean Corpuscular Volume 77 fL (80-94); Platelet Count 444 10^3/uL (150-450); Red Blood Count 4.13 10^6 /uL (4.18-5.48); Red Cell Distribution Width 24 % (10-15); White Blood Count 6.2 10^3/uL (3.5-10.8)
[2021-11-25 07:11] LABS: Albumin 3.5 g/dL (3.2-5.2); Albumin/Globulin Ratio 1.4 (1-3); Calcium 7.7 mg/dL (8.6-10.3); Globulin 2.5 g/dL (2-4); Potassium 3.4 mmol/L (3.5-5.0); Total Bilirubin 0.5 mg/dL (0.2-1.0); eGFR CKD-EPI 103.8 (>60)
[2021-11-25] MEDS ORDERED: Potassium Chlor 20 meq TAB.ER PO SCH (09:00)
[2021-11-25] MEDS: Enoxaparin 40 MG/0.4 ML SYR SUBCUT SCH (09:32)
== END 2021-11-25 11:15 | disposition home health service (06) | DRG 945 ==
LOC: PMRU 10:51
PROVIDERS: ADMIT Physical Medicine & Rehabilitation; ATTEND Physical Medicine & Rehabilitation